=== PATIENT | male | born 1970 | race Caucasian/White ===

== ENCOUNTER → 2016-08-08 | Outpatient (CLI) | payer BC ==
[2016-08-08 09:36] LABS: ANION GAP 13 (5-19); BLOOD UREA NITROGEN 24 mg/dL (7-20); CALCIUM 10.4 mg/dL (8.4-10.2); CARBON DIOXIDE 27 mmol/L (22-30); CHLORIDE 102 mmol/L (98-107); CREATININE RESULT 1.26 mg/dL (0.52-1.25); GLUCOSE 87 mg/dL (75-110); POTASSIUM 4.1 mmol/L (3.6-5.0); SODIUM 142.4 mmol/L (137-145)
[2016-08-09 11:10] LABS: HEMATOCRIT 51.6 % (37.9-51.0); HEMOGLOBIN 17.1 g/dL (13.5-17.0); HGB HCT DIFFERENCE -0.3; MEAN CORPUSCULAR HEMOGLOBIN 28.9 pg (27.0-33.4); MEAN CORPUSCULAR HGB CONC 33.2 g/dL (32.0-36.0); MEAN CORPUSCULAR VOLUME 87 fl (80-97); RED BLOOD COUNT 5.93 10^6/uL (4.35-5.55); RED CELL DISTRIBUTION WIDTH 14.2 % (11.5-14.0); WHITE BLOOD COUNT 6.8 10^3/uL (4.0-10.5)
== END ==
LOC: OD 07:34
PROVIDERS: ATTEND Transplant Surgery
DX: Z94.0 Kidney transplant status (principal)
CPT/HCPCS: 36415; 80048; 85025; 85027

== ENCOUNTER → 2016-08-16 | Outpatient (CLI) | payer BC ==
[2016-08-16 09:17] LABS: ABSOLUTE EOSINOPHILS # (AUTO) 0.2 10^3/uL (0.0-0.6); ABSOLUTE LYMPHOCYTES (AUTO) 1.2 10^3/uL (0.5-4.7); ABSOLUTE MONOCYTES (AUTO) 0.6 10^3/uL (0.1-1.4); ABSOLUTE NEUT (AUTO) 4.4 10^3/uL (1.7-8.2); BASOPHILS % (AUTO) 0.6 % (0-2); EOSINOPHILS % (AUTO) 2.7 % (0-6); HEMOGLOBIN 17.4 g/dL (13.5-17.0); HGB HCT DIFFERENCE 0.2; MEAN CORPUSCULAR HEMOGLOBIN 28.9 pg (27.0-33.4); MEAN CORPUSCULAR HGB CONC 33.4 g/dL (32.0-36.0); MEAN CORPUSCULAR VOLUME 86 fl (80-97); MONOCYTES % (AUTO) 9.4 % (3-13); RED BLOOD COUNT 6.03 10^6/uL (4.35-5.55); RED CELL DISTRIBUTION WIDTH 14.4 % (11.5-14.0); SEGMENTED NEUTROPHILS % (AUTO) 68.3 % (42-78); WHITE BLOOD COUNT 6.4 10^3/uL (4.0-10.5)
[2016-08-16 09:45] LABS: ANION GAP 13 (5-19); BLOOD UREA NITROGEN 20 mg/dL (7-20); CALCIUM 9.7 mg/dL (8.4-10.2); CARBON DIOXIDE 28 mmol/L (22-30); CHLORIDE 99 mmol/L (98-107); CREATININE RESULT 1.19 mg/dL (0.52-1.25); GLUCOSE 106 mg/dL (75-110); POTASSIUM 3.8 mmol/L (3.6-5.0); SODIUM 139.9 mmol/L (137-145)
== END ==
LOC: OD 08:34
PROVIDERS: ATTEND Transplant Surgery
DX: Z94.0 Kidney transplant status (principal)
CPT/HCPCS: 36415; 80048; 85025

== ENCOUNTER → 2016-09-18 | Outpatient (CLI) | payer BC ==
[2016-09-18 08:38] LABS: ABSOLUTE EOSINOPHILS # (AUTO) 0.2 10^3/uL (0.0-0.6); ABSOLUTE LYMPHOCYTES (AUTO) 1.3 10^3/uL (0.5-4.7); ABSOLUTE MONOCYTES (AUTO) 0.7 10^3/uL (0.1-1.4); ABSOLUTE NEUT (AUTO) 4.6 10^3/uL (1.7-8.2); BASOPHILS % (AUTO) 0.7 % (0-2); EOSINOPHILS % (AUTO) 3.3 % (0-6); HEMATOCRIT 50.3 % (37.9-51.0); HEMOGLOBIN 17.1 g/dL (13.5-17.0); LYMPHOCYTES % (AUTO) 18.3 % (13-45); MEAN CORPUSCULAR HEMOGLOBIN 29.5 pg (27.0-33.4); MEAN CORPUSCULAR HGB CONC 34.1 g/dL (32.0-36.0); MEAN CORPUSCULAR VOLUME 86 fl (80-97); MONOCYTES % (AUTO) 9.8 % (3-13); RED BLOOD COUNT 5.82 10^6/uL (4.35-5.55); RED CELL DISTRIBUTION WIDTH 14.4 % (11.5-14.0); SEGMENTED NEUTROPHILS % (AUTO) 67.9 % (42-78); WHITE BLOOD COUNT 6.8 10^3/uL (4.0-10.5)
[2016-09-18 08:39] LABS: APPEARANCE,URINE CLEAR; BILIRUBIN,URINE NEGATIVE (NEGATIVE); GLUCOSE, URINE NEGATIVE (NEGATIVE); KETONES,URINE NEGATIVE (NEGATIVE); LEUKOCYTE ESTERASE,URINE NEGATIVE (NEGATIVE); NITRITE,URINE NEGATIVE (NEGATIVE); PROTEIN,URINE NEGATIVE (NEGATIVE); URINE SPECIFIC GRAVITY 1.015; UROBILINOGEN,URINE NEGATIVE mg/dL (<2.0)
[2016-09-18 08:57] LABS: ANION GAP 13 (5-19); BLOOD UREA NITROGEN 24 mg/dL (7-20); CALCIUM 10.1 mg/dL (8.4-10.2); CARBON DIOXIDE 29 mmol/L (22-30); CHLORIDE 101 mmol/L (98-107); CREATININE RESULT 1.02 mg/dL (0.52-1.25); GLUCOSE 114 mg/dL (75-110); MAGNESIUM 1.7 mg/dL (1.6-2.3); PHOSPHORUS 3.6 mg/dL (2.5-4.5); POTASSIUM 4.2 mmol/L (3.6-5.0); SODIUM 143.1 mmol/L (137-145)
== END ==
LOC: OD 07:20
PROVIDERS: ATTEND Transplant Surgery
DX: Z94.0 Kidney transplant status (principal)
CPT/HCPCS: 36415; 80048; 80197; 81001; 83735; 84100; 85025

== ENCOUNTER → 2016-10-26 | Outpatient (CLI) | payer BC ==
[2016-10-26 08:12] LABS: ABSOLUTE EOSINOPHILS # (AUTO) 0.3 10^3/uL (0.0-0.6); ABSOLUTE LYMPHOCYTES (AUTO) 1.4 10^3/uL (0.5-4.7); ABSOLUTE MONOCYTES (AUTO) 0.6 10^3/uL (0.1-1.4); ABSOLUTE NEUT (AUTO) 4.4 10^3/uL (1.7-8.2); BASOPHILS % (AUTO) 0.7 % (0-2); EOSINOPHILS % (AUTO) 3.9 % (0-6); HEMATOCRIT 48.6 % (37.9-51.0); HEMOGLOBIN 16.3 g/dL (13.5-17.0); HGB HCT DIFFERENCE 0.3; MEAN CORPUSCULAR HEMOGLOBIN 29.4 pg (27.0-33.4); MEAN CORPUSCULAR HGB CONC 33.5 g/dL (32.0-36.0); MEAN CORPUSCULAR VOLUME 88 fl (80-97); MONOCYTES % (AUTO) 8.8 % (3-13); RED BLOOD COUNT 5.53 10^6/uL (4.35-5.55); RED CELL DISTRIBUTION WIDTH 14.5 % (11.5-14.0); SEGMENTED NEUTROPHILS % (AUTO) 65.6 % (42-78); WHITE BLOOD COUNT 6.8 10^3/uL (4.0-10.5)
[2016-10-26 08:29] LABS: APPEARANCE,URINE CLEAR; BILIRUBIN,URINE NEGATIVE (NEGATIVE); GLUCOSE, URINE 150 mg/dL (NEGATIVE); KETONES,URINE NEGATIVE (NEGATIVE); LEUKOCYTE ESTERASE,URINE NEGATIVE (NEGATIVE); NITRITE,URINE NEGATIVE (NEGATIVE); PROTEIN,URINE NEGATIVE (NEGATIVE); UROBILINOGEN,URINE NEGATIVE mg/dL (<2.0)
[2016-10-26 08:37] LABS: ANION GAP 15 (5-19); BLOOD UREA NITROGEN 21 mg/dL (7-20); CARBON DIOXIDE 25 mmol/L (22-30); CHLORIDE 101 mmol/L (98-107); CREATININE RESULT 1.15 mg/dL (0.52-1.25); GLUCOSE 141 mg/dL (75-110); MAGNESIUM 1.4 mg/dL (1.6-2.3); PHOSPHORUS 2.8 mg/dL (2.5-4.5); POTASSIUM 3.8 mmol/L (3.6-5.0); SODIUM 140.9 mmol/L (137-145)
== END ==
LOC: OD 07:05
PROVIDERS: ATTEND Surgery Trauma Surgery
DX: Z94.0 Kidney transplant status (principal)
CPT/HCPCS: 36415; 80048; 80197; 81001; 83735; 84100; 85025

== ENCOUNTER → 2016-12-22 | Outpatient (CLI) | payer BC ==
[2016-12-22 09:19] LABS: ABSOLUTE BASOPHILS # (AUTO) 0.1 10^3/uL (0.0-0.2); ABSOLUTE EOSINOPHILS # (AUTO) 0.2 10^3/uL (0.0-0.6); ABSOLUTE LYMPHOCYTES (AUTO) 1.7 10^3/uL (0.5-4.7); ABSOLUTE MONOCYTES (AUTO) 0.8 10^3/uL (0.1-1.4); BASOPHILS % (AUTO) 0.7 % (0-2); EOSINOPHILS % (AUTO) 2.8 % (0-6); HEMATOCRIT 43.3 % (37.9-51.0); HEMOGLOBIN 14.7 g/dL (13.5-17.0); HGB HCT DIFFERENCE 0.8; MEAN CORPUSCULAR HEMOGLOBIN 29.7 pg (27.0-33.4); MEAN CORPUSCULAR HGB CONC 33.9 g/dL (32.0-36.0); MEAN CORPUSCULAR VOLUME 88 fl (80-97); MONOCYTES % (AUTO) 10.4 % (3-13); RED BLOOD COUNT 4.94 10^6/uL (4.35-5.55); RED CELL DISTRIBUTION WIDTH 14.1 % (11.5-14.0); SEGMENTED NEUTROPHILS % (AUTO) 64.1 % (42-78); WHITE BLOOD COUNT 7.8 10^3/uL (4.0-10.5)
[2016-12-22 09:29] LABS: APPEARANCE,URINE SLIGHTLY-CLOUDY; BILIRUBIN,URINE NEGATIVE (NEGATIVE); GLUCOSE, URINE >=500 mg/dL (NEGATIVE); KETONES,URINE NEGATIVE (NEGATIVE); LEUKOCYTE ESTERASE,URINE NEGATIVE (NEGATIVE); NITRITE,URINE NEGATIVE (NEGATIVE); PROTEIN,URINE NEGATIVE (NEGATIVE); URINE SPECIFIC GRAVITY 1.016; UROBILINOGEN,URINE NEGATIVE mg/dL (<2.0)
[2016-12-22 09:30] LABS: ANION GAP 12 (5-19); BLOOD UREA NITROGEN 17 mg/dL (7-20); CALCIUM 9.2 mg/dL (8.4-10.2); CARBON DIOXIDE 28 mmol/L (22-30); CHLORIDE 98 mmol/L (98-107); CREATININE RESULT 1.17 mg/dL (0.52-1.25); GLUCOSE 140 mg/dL (75-110); MAGNESIUM 1.5 mg/dL (1.6-2.3); PHOSPHORUS 3.4 mg/dL (2.5-4.5); POTASSIUM 3.6 mmol/L (3.6-5.0); SODIUM 137.5 mmol/L (137-145)
== END ==
LOC: OD 07:21
PROVIDERS: ATTEND Surgery Trauma Surgery
DX: Z94.0 Kidney transplant status (principal)
CPT/HCPCS: 36415; 80048; 80197; 81001; 83735; 84100; 85025

== ENCOUNTER → 2017-02-05 | Outpatient (CLI) | payer BC ==
[2017-02-05 08:13] LABS: ABSOLUTE EOSINOPHILS # (AUTO) 0.2 10^3/uL (0.0-0.6); ABSOLUTE LYMPHOCYTES (AUTO) 1.7 10^3/uL (0.5-4.7); ABSOLUTE MONOCYTES (AUTO) 0.7 10^3/uL (0.1-1.4); ABSOLUTE NEUT (AUTO) 4.7 10^3/uL (1.7-8.2); BASOPHILS % (AUTO) 0.7 % (0-2); EOSINOPHILS % (AUTO) 2.7 % (0-6); LYMPHOCYTES % (AUTO) 23.2 % (13-45); MEAN CORPUSCULAR HEMOGLOBIN 30.7 pg (27.0-33.4); MEAN CORPUSCULAR HGB CONC 34.9 g/dL (32.0-36.0); MEAN CORPUSCULAR VOLUME 88 fl (80-97); MONOCYTES % (AUTO) 9.8 % (3-13); RED BLOOD COUNT 4.89 10^6/uL (4.35-5.55); RED CELL DISTRIBUTION WIDTH 13.6 % (11.5-14.0); SEGMENTED NEUTROPHILS % (AUTO) 63.6 % (42-78); WHITE BLOOD COUNT 7.3 10^3/uL (4.0-10.5)
[2017-02-05 08:31] LABS: APPEARANCE,URINE CLEAR; BILIRUBIN,URINE NEGATIVE (NEGATIVE); GLUCOSE, URINE 50 mg/dL (NEGATIVE); KETONES,URINE NEGATIVE (NEGATIVE); LEUKOCYTE ESTERASE,URINE NEGATIVE (NEGATIVE); NITRITE,URINE NEGATIVE (NEGATIVE); PROTEIN,URINE 30 mg/dL (NEGATIVE); URINE SPECIFIC GRAVITY 1.024; UROBILINOGEN,URINE NEGATIVE mg/dL (<2.0)
[2017-02-05 08:41] LABS: ANION GAP 11 (5-19); BLOOD UREA NITROGEN 21 mg/dL (7-20); CALCIUM 9.8 mg/dL (8.4-10.2); CARBON DIOXIDE 29 mmol/L (22-30); CHLORIDE 98 mmol/L (98-107); CREATININE RESULT 1.16 mg/dL (0.52-1.25); GLUCOSE 135 mg/dL (75-110); MAGNESIUM 1.3 mg/dL (1.6-2.3); PHOSPHORUS 3.8 mg/dL (2.5-4.5); POTASSIUM 3.8 mmol/L (3.6-5.0); SODIUM 138.3 mmol/L (137-145)
== END ==
LOC: OD 07:04
PROVIDERS: ATTEND Surgery Trauma Surgery
DX: Z94.0 Kidney transplant status (principal)
CPT/HCPCS: 36415; 80048; 80197; 81001; 83735; 84100; 85025

== ENCOUNTER → 2017-02-28 | Outpatient (CLI) | payer BC | LOC: OD 07:04 | PROVIDERS: ATTEND Internal Medicine | DX: Z94.0 Kidney transplant status (principal); Z51.81 Encounter for therapeutic drug level monitoring; Z79.899 Other long term (current) drug therapy | CPT/HCPCS: 36415; 80197 ==

== ENCOUNTER → 2017-03-26 | Outpatient (CLI) | payer BC ==
[2017-03-26 08:44] LABS: ABSOLUTE EOSINOPHILS # (AUTO) 0.1 10^3/uL (0.0-0.6); ABSOLUTE LYMPHOCYTES (AUTO) 1.3 10^3/uL (0.5-4.7); ABSOLUTE MONOCYTES (AUTO) 0.6 10^3/uL (0.1-1.4); ABSOLUTE NEUT (AUTO) 4.7 10^3/uL (1.7-8.2); BASOPHILS % (AUTO) 0.7 % (0-2); EOSINOPHILS % (AUTO) 2.1 % (0-6); HEMATOCRIT 45.9 % (37.9-51.0); HEMOGLOBIN 15.6 g/dL (13.5-17.0); HGB HCT DIFFERENCE 0.9; LYMPHOCYTES % (AUTO) 18.9 % (13-45); MEAN CORPUSCULAR HEMOGLOBIN 29.9 pg (27.0-33.4); MEAN CORPUSCULAR HGB CONC 34.1 g/dL (32.0-36.0); MEAN CORPUSCULAR VOLUME 88 fl (80-97); MONOCYTES % (AUTO) 8.4 % (3-13); RED BLOOD COUNT 5.23 10^6/uL (4.35-5.55); RED CELL DISTRIBUTION WIDTH 13.5 % (11.5-14.0); SEGMENTED NEUTROPHILS % (AUTO) 69.9 % (42-78); WHITE BLOOD COUNT 6.7 10^3/uL (4.0-10.5)
[2017-03-26 09:00] LABS: ANION GAP 13 (5-19); BLOOD UREA NITROGEN 15 mg/dL (7-20); CALCIUM 9.9 mg/dL (8.4-10.2); CARBON DIOXIDE 25 mmol/L (22-30); CHLORIDE 103 mmol/L (98-107); CREATININE RESULT 0.95 mg/dL (0.52-1.25); GLUCOSE 129 mg/dL (75-110); MAGNESIUM 1.5 mg/dL (1.6-2.3); PHOSPHORUS 3.1 mg/dL (2.5-4.5); POTASSIUM 3.9 mmol/L (3.6-5.0); SODIUM 141.3 mmol/L (137-145)
[2017-03-26 09:01] LABS: APPEARANCE,URINE CLEAR; BILIRUBIN,URINE NEGATIVE (NEGATIVE); GLUCOSE, URINE 50 mg/dL (NEGATIVE); KETONES,URINE NEGATIVE (NEGATIVE); LEUKOCYTE ESTERASE,URINE TRACE (NEGATIVE); NITRITE,URINE NEGATIVE (NEGATIVE); PROTEIN,URINE 30 mg/dL (NEGATIVE); URINE SPECIFIC GRAVITY 1.023; UROBILINOGEN,URINE NEGATIVE mg/dL (<2.0)
== END ==
LOC: OD 07:56
PROVIDERS: ATTEND Surgery Trauma Surgery
DX: Z94.0 Kidney transplant status (principal)
CPT/HCPCS: 36415; 80048; 80197; 81001; 83735; 84100; 85025

== ENCOUNTER 2017-05-18 23:28 | Emergency (ER) | payer BC ==
[2017-05-18 23:51] VITALS: BP 172/121
[2017-05-19 00:10] LABS: APPEARANCE,URINE CLOUDY; BILIRUBIN,URINE NEGATIVE (NEGATIVE); GLUCOSE, URINE >=500 mg/dL (NEGATIVE); KETONES,URINE NEGATIVE (NEGATIVE); LEUKOCYTE ESTERASE,URINE LARGE (NEGATIVE); NITRITE,URINE POSITIVE (NEGATIVE); PROTEIN,URINE 100 mg/dL (NEGATIVE); URINE SPECIFIC GRAVITY 1.014; UROBILINOGEN,URINE NEGATIVE mg/dL (<2.0)
[2017-05-19 00:29] LABS: BACTERIA,URINE 4+ /HPF; RBC,URINE TOO NUMEROUS TO CNT /HPF; WBC,URINE TOO NUMEROUS TO CNT /HPF
[2017-05-19 01:44] LABS: ABSOLUTE BASOPHILS # (AUTO) 0.1 10^3/uL (0.0-0.2); ABSOLUTE EOSINOPHILS # (AUTO) 0.1 10^3/uL (0.0-0.6); ABSOLUTE LYMPHOCYTES (AUTO) 1.2 10^3/uL (0.5-4.7); ABSOLUTE MONOCYTES (AUTO) 1.1 10^3/uL (0.1-1.4); ABSOLUTE NEUT (AUTO) 10.1 10^3/uL (1.7-8.2); BASOPHILS % (AUTO) 0.6 % (0-2); EOSINOPHILS % (AUTO) 0.8 % (0-6); HEMOGLOBIN 15.4 g/dL (13.5-17.0); HGB HCT DIFFERENCE 1.2; LYMPHOCYTES % (AUTO) 9.3 % (13-45); MEAN CORPUSCULAR HEMOGLOBIN 29.9 pg (27.0-33.4); MEAN CORPUSCULAR HGB CONC 34.2 g/dL (32.0-36.0); MEAN CORPUSCULAR VOLUME 87 fl (80-97); MONOCYTES % (AUTO) 8.6 % (3-13); RED BLOOD COUNT 5.16 10^6/uL (4.35-5.55); RED CELL DISTRIBUTION WIDTH 13.3 % (11.5-14.0); SEGMENTED NEUTROPHILS % (AUTO) 80.7 % (42-78); WHITE BLOOD COUNT 12.5 10^3/uL (4.0-10.5)
[2017-05-19 02:00] LABS: ALANINE AMINOTRANSFERASE 43 U/L (21-72); ALBUMIN 4.2 g/dL (3.5-5.0); ALKALINE PHOSPHATASE 61 U/L (38-126); ANION GAP 14 (5-19); ASPARTATE AMINO TRANSFERASE 29 U/L (17-59); BILIRUBIN,DIRECT 0.4 mg/dL (0.0-0.4); BLOOD UREA NITROGEN 21 mg/dL (7-20); CALCIUM 9.7 mg/dL (8.4-10.2); CARBON DIOXIDE 27 mmol/L (22-30); CHLORIDE 102 mmol/L (98-107); CREATININE RESULT 1.22 mg/dL (0.52-1.25); POTASSIUM 3.7 mmol/L (3.6-5.0); SODIUM 143.4 mmol/L (137-145); TOTAL PROTEIN 6.3 g/dL (6.3-8.2)
[2017-05-19 02:28] LABS: GLUCOSE 157 mg/dL (75-110)
[2017-05-19] MEDS ORDERED: LEVOFLOXACIN 500 MG TABLET PO ONE (02:38)
--- NOTE | 2017-05-19 02:42 | ER Document Report ---
ED General - General Chief Complaint: Urinary Problem Stated Complaint: URINATING BLOOD Time Seen by Provider: 05/19/17 00:05 Mode of Arrival: Ambulatory Information source: Patient Notes: This is a 46-year-old man with a history of kidney transplant (ECU in 2016) who is followed by [facility]. The patient presents to the emergency room with dysuria, urgency. He denies flank pain. He denies right lower quadrant pain (which is where his graft is). He called the [facility] team in [facility] and they told him to come to the ER. Medicines: Omeprazole 40 mg daily Hydralazine 50 mg daily Myfortic 180 tabs: 4 tabs twice daily Losartan 100 mg daily Prograf 4 mg twice daily Labetalol 300 mg daily Lasix 20 mg twice daily Prednisone 5 mg daily Allergies: Lisinopril TRAVEL OUTSIDE OF THE [place] IN LAST 30 DAYS: No - HPI Onset: Just prior to arrival Onset/Duration: Gradual Quality of pain: No pain Severity: None Pain Level: Denies Associated symptoms: denies: Chest pain, Fever, Shortness of breath Exacerbated by: Denies Relieved by: Denies Similar symptoms previously: No Recently seen / treated by doctor: No - Related Data Allergies/Adverse Reactions: lisinopril Allergy (Verified 12/05/15 16:38) Past Medical History - General Information source: Patient - Social History Smoking Status: Never Smoker Cigarette use (# per day): No Chew tobacco use (# tins/day): No Frequency of alcohol use: None Drug Abuse: None Lives with: Family Family History: Reviewed & Not Pertinent Patient has suicidal ideation: No Patient has homicidal ideation: No - Past Medical History Cardiac Medical History: Reports: Hx Hypertension Denies: Hx Coronary Artery Disease, Hx Heart Attack Pulmonary Medical History: Denies: Hx Asthma, Hx Bronchitis, Hx COPD, Hx Pneumonia Neurological Medical History: Denies: Hx Cerebrovascular Accident, Hx Seizures Musculoskeltal Medical History: Denies Hx Arthritis Past Surgical History: Reports: Other - Kidney transplant - Immunizations Hx Diphtheria, Pertussis, Tetanus Vaccination: Yes Review of Systems - Review of Systems Constitutional: Chills, Fever EENT: No symptoms reported Cardiovascular: No symptoms reported Respiratory: No symptoms reported Gastrointestinal: See HPI Genitourinary: No symptoms reported Male Genitourinary: No symptoms reported Musculoskeletal: No symptoms reported Skin: No symptoms reported Hematologic/Lymphatic: No symptoms reported Neurological/Psychological: No symptoms reported Physical Exam - Vital signs Vitals: Temp Pulse Resp BP Pulse Ox 99.8 F 70 18 172/121 H 95 05/18/17 23:49 05/18/17 23:49 12 23:49 05/18/17 23:49 12 23:49 Notes: Physical exam: HEAD: Atraumatic, normocephalic. EYES: Pupils equal round and reactive to light, extraocular movements intact, sclera anicteric, conjunctiva are normal. ENT: TMs normal, nares patent, oropharynx clear without exudates. Moist mucous membranes. NECK: Normal range of motion, supple without obvious mass or JVD. LUNGS: Breath sounds clear to auscultation bilaterally and equal. No wheezes rales or rhonchi. HEART: Regular rate and rhythm without murmurs, rubs or gallops. ABDOMEN: Soft, normoactive bowel sounds. No tenderness to palpation. No guarding, no rebound. No masses appreciated. He is transplanted kidney is in the right lower quadrant, there is no overlying erythema or tenderness. Penis: No tenderness or lesions or discharge. EXTREMITIES: Normal range of motion, no pitting or edema. No clubbing or cyanosis. NEUROLOGICAL: Cranial nerves II through XII grossly intact. Normal speech, moving all extremities. PSYCH: Normal mood, normal affect. SKIN: Warm, Dry, normal turgor, no rashes or lesions noted. Course - Re-evaluation Re-evalutation: 05/19/17 02:43 I discussed case with the fellow who is covering for [facility] at [facility] and he agreed with plan for antibiotics and discharge. We did discuss the labs. He requested getting a CMV and I will look into that. - Vital Signs Vital signs: Temp Pulse Resp BP Pulse Ox 99.8 F 70 18 172/121 H 95 05/18/17 23:49 05/18/17 23:49 05/18/17 23:49 05/18/17 23:49 05/18/17 23:49 - Laboratory Result Diagrams: 05/19/17 01:30 05/19/17 01:30 Laboratory results interpreted by me: 05/18/17 05/19/17 05/19/17 23:42 01:30 01:30 WBC 12.5 H Seg Neutrophils % 80.7 H Lymphocytes % 9.3 L Absolute Neutrophils 10.1 H BUN 21 H Glucose 157 H Urine Protein 100 H Urine Glucose (UA) >=500 H Urine Blood LARGE H Urine Nitrite POSITIVE H Ur Leukocyte Esterase LARGE H Discharge - Discharge Clinical Impression: UTI Condition: Stable Disposition: HOME, SELF-CARE Additional Instructions: Recommendations: As we discussed, your labs suggested a urine infection. Take the antibiotics as prescribed. Drink plenty of fluids. Follow-up with the forging operator: You will need a repeat urine test to make sure that the antibiotic is covering this infection. A urine culture was sent and will take a few days. The forging operator at [facility] had recommended getting a CMV: We will try and send that , call in a few days to see what the test result is. In the meantime, return to the emergency room for any concerns or getting worse : Back pain, abdominal pain, continued fever, not tolerating fluids or vomiting. Prescriptions: Levofloxacin 500 mg PO DAILY #10 tablet Forms: Return to Work Referrals: WENDI MERCER MD [Primary Care Provider] - Follow up as needed
[2017-05-22 14:53] LABS: CMV DNA PCR QUANT Negative (Negative)
== END 2017-05-19 03:52 | disposition home or self-care (01) ==
LOC: ER 23:28
DX: N39.0 Urinary tract infection, site not specified (principal); R31.9 Hematuria, unspecified; I10 Essential (primary) hypertension; Z94.0 Kidney transplant status
CPT/HCPCS: 36415; 80053; 81001; 85025; 87086; 87088; 87186; 87496; 99283

== ENCOUNTER 2017-06-09 14:01 | Emergency (ER) | payer BC ==
[2017-06-09 14:06] VITALS: BP 155/91
[2017-06-09] MEDS ORDERED: LIDOCAINE 1% INJ-PF (10 MG/ML) 30 ML SDV INJ ONE (14:52)
--- NOTE | 2017-06-09 15:59 | ER Document Report ---
ED Wound - General Chief Complaint: Laceration Stated Complaint: LEFT HAND LACERATION Time Seen by Provider: 06/09/17 14:44 Mode of Arrival: Ambulatory Information source: Patient Notes: Patient is a 46-year-old male who presents to the ER today for laceration to the palmar surface of the left hand that occurred just prior to arrival. Patient states that he was cutting a box open, opening his since Gallo present whenever he accidentally slipped and cut his hand. Patient is up-to- date on his tetanus. He states bleeding is controlled at this time. He denies any numbness or tingling. He has full range of motion of the left hand. TRAVEL OUTSIDE OF THE [place] IN LAST 30 DAYS: No - Related Data Allergies/Adverse Reactions: lisinopril Allergy (Verified 06/09/17 14:02) Past Medical History - General Information source: Patient - Social History Smoking Status: Never Smoker Chew tobacco use (# tins/day): No Frequency of alcohol use: None Drug Abuse: None Family History: Reviewed & Not Pertinent Patient has suicidal ideation: No Patient has homicidal ideation: No - Past Medical History Cardiac Medical History: Reports: Hx Hypertension Denies: Hx Coronary Artery Disease, Hx Heart Attack Pulmonary Medical History: Denies: Hx Asthma, Hx Bronchitis, Hx COPD, Hx Pneumonia Neurological Medical History: Denies: Hx Cerebrovascular Accident, Hx Seizures Renal/ Medical History: Denies: Hx Peritoneal Dialysis Musculoskeltal Medical History: Denies Hx Arthritis Past Surgical History: Reports: Hx Kidney (Renal Surgery) - kidney transplant, Hx Testicular Surgery - as a child, Other - Kidney transplant - Immunizations Hx Diphtheria, Pertussis, Tetanus Vaccination: Yes Review of Systems - Review of Systems Constitutional: No symptoms reported EENT: No symptoms reported Cardiovascular: No symptoms reported Respiratory: No symptoms reported Gastrointestinal: No symptoms reported Genitourinary: No symptoms reported Male Genitourinary: No symptoms reported Musculoskeletal: No symptoms reported Skin: See HPI Hematologic/Lymphatic: No symptoms reported Neurological/Psychological: No symptoms reported Physical Exam - Vital signs Vitals: Temp Pulse Resp BP Pulse Ox 98.5 F 61 16 155/91 H 96 06/09/17 14:05 06/09/17 14:05 06/09/17 14:05 06/09/17 14:05 06/09/17 14:05 - Notes Notes: PHYSICAL EXAMINATION: GENERAL: Well-appearing and in no acute distress. HEAD: Atraumatic, normocephalic. EYES: Pupils equal round and reactive to light, extraocular movements intact, sclera anicteric, conjunctiva are normal. NECK: Normal range of motion, supple without lymphadenopathy LUNGS: CTAB and equal. No wheezes rales or rhonchi. HEART: Regular rate and rhythm without murmurs EXTREMITIES: good casing man strength left hand, good capillary refill, Normal range of motion, no pitting edema. No cyanosis. NEUROLOGICAL: Cranial nerves grossly intact. Normal sensory/motor exams. PSYCH: Normal mood, normal affect. SKIN: Warm, Dry, normal turgor, 4 cm laceration to the palmar surface of the left hand, no bleeding, subcutaneous fat noted, no appreciated ligaments or tendons Course - Re-evaluation Re-evalutation: 06/09/17 16:29 Laceration was sutured and hemostasis was achieved. Patient to return in 7 days for suture removal. Patient placed on Keflex for risk of infection. - Vital Signs Vital signs: Temp Pulse Resp BP Pulse Ox 98.5 F 61 16 155/91 H 96 06/09/17 14:05 06/09/17 14:05 06/09/17 14:05 06/09/17 14:05 06/09/17 14:05 Procedures - Laceration/Wound Repair Left Volar Hand Time completed: 16:00 Wound length (cm): 4 Wound's Depth, Shape: Superficial, Linear Laceration pre-procedure: Sterile PPE donned, Latrell applied Anesthetic type: 1% Lidocaine Volume Anesthetic (mLs): 6 Wound explored: Clean Irrigated w/ Saline (mLs): 30 Wound Repaired With: Sutures Suture Size/Type: 5:0, Nylon Number of Sutures: 9 Post-procedure NV exam normal: Yes Complications: No Discharge - Discharge Clinical Impression: Laceration of left hand Qualifiers: Encounter type: initial encounter Foreign body presence: without foreign body Qualified Code(s): S61.412A - Laceration without foreign body of left hand, initial encounter Condition: Stable Disposition: HOME, SELF-CARE Additional Instructions: Return immediately for any new or worsening symptoms. Follow up with primary care provider, call tomorrow to make followup appointment. Get your sutures removed in 5-7 days! Prescriptions: Cephalexin Monohydrate [Keflex 500 mg Capsule] 500 mg PO BID 5 Days #10 capsule Forms: Return to Work Referrals: WENDI MERCER MD [Primary Care Provider] - Follow up as needed
== END 2017-06-09 16:05 | disposition home or self-care (01) ==
LOC: ER 14:01
DX: S61.412A Laceration without foreign body of left hand, initial encounter (principal); W26.0XXA Contact with knife, initial encounter; Y93.89 Activity, other specified; I10 Essential (primary) hypertension; Z94.0 Kidney transplant status; Z88.8 Allergy status to other drugs, medicaments and biological substances
CPT/HCPCS: 99282; 12002; J3490

== ENCOUNTER 2017-06-16 13:17 | Emergency (ER) | payer BC ==
[2017-06-16 13:24] VITALS: BP 156/79
--- NOTE | 2017-06-16 13:38 | ER Document Report ---
HPI - HPI Patient complains to provider of: Suture removal Onset: Last week Pain Level: 0 Context: Patient is here for suture removal for a laceration to the left palmar surface of his hand. Patient states he cut his hand with a knife. Patient's tetanus immunization is currently up-to-date. Patient denies any numbness or tingling to hand. Patient denies any problems with laceration. Associated Symptoms: Other - Suture removal Exacerbated by: Denies Relieved by: Denies Recently seen / treated by doctor: Yes - ROS ROS below otherwise negative: Yes Systems Reviewed and Negative: Yes All other systems reviewed and negative - DERM Skin Problems: Laceration Past Medical History - General Information source: Patient - Social History Smoking Status: Never Smoker Frequency of alcohol use: None Drug Abuse: None Lives with: Family Family History: Reviewed & Not Pertinent - Past Medical History Cardiac Medical History: Reports: Hx Hypertension Denies: Hx Coronary Artery Disease, Hx Heart Attack Pulmonary Medical History: Denies: Hx Asthma, Hx Bronchitis, Hx COPD, Hx Pneumonia Neurological Medical History: Denies: Hx Cerebrovascular Accident, Hx Seizures Renal/ Medical History: Denies: Hx Peritoneal Dialysis Musculoskeltal Medical History: Denies Hx Arthritis Past Surgical History: Reports: Hx Kidney (Renal Surgery) - kidney transplant, Hx Testicular Surgery - as a child, Other - Kidney transplant - Immunizations Hx Diphtheria, Pertussis, Tetanus Vaccination: Yes Vertical Provider Document - CONSTITUTIONAL Agree With Documented VS: Yes Exam Limitations: No Limitations General Appearance: WD/WN, No Apparent Distress - INFECTION CONTROL TRAVEL OUTSIDE OF THE [place] IN LAST 30 DAYS: No - HEENT HEENT: Atraumatic, Normocephalic - NECK Neck: Normal Inspection - RESPIRATORY Respiratory: No Respiratory Distress O2 Sat by Pulse Oximetry: 97 - CARDIOVASCULAR Pulses: Normal: Radial - MUSCULOSKELETAL/EXTREMETIES Musculoskeletal/Extremeties: MAEW, Tender - Mild tenderness of palmar surface of left hand, No Edema. negative: Eccymosis - NEURO Level of Consciousness: Awake, Alert, Appropriate Motor/Sensory: No Motor Deficit, No Sensory Deficit - DERM Integumentary: Warm, Dry, Laceration - Sutured laceration to palmar surface of left hand, wound edges approximated, no surrounding erythema Course - Vital Signs Vital signs: Temp Pulse Resp BP Pulse Ox 98.4 F 61 20 156/79 H 97 06/16/17 13:24 06/16/17 13:24 06/16/17 13:24 06/16/17 13:24 06/16/17 13:24 Discharge - Discharge Clinical Impression: Visit for suture removal, Hx of essential hypertension Condition: Stable Disposition: HOME, SELF-CARE Instructions: Care of Steri-Strip Closure ([facility]), Suture Removal Additional Instructions: Return immediately for any new or worsening symptoms Followup with the hand specialist for any problems or concerns Forms: Elevated Blood Pressure Referrals: WENDI MERCER MD [Primary Care Provider] - Follow up as needed BA LEVY DO [ACTIVE STAFF] - Follow up as needed
== END 2017-06-16 13:55 | disposition home or self-care (01) ==
LOC: ER 13:17
DX: S61.412D Laceration without foreign body of left hand, subsequent encounter (principal); W26.0XXD Contact with knife, subsequent encounter; I10 Essential (primary) hypertension

== ENCOUNTER 2017-06-16 20:43 | Emergency (ER) | payer BC ==
[2017-06-16] MEDS ORDERED: LIDOCAINE 1% INJ-PF (10 MG/ML) 30 ML SDV INJ ONE (22:27)
[2017-06-16] MEDS ORDERED: CEPHALEXIN 500 MG CAPSULE PO ONE (22:28)
--- NOTE | 2017-06-16 22:29 | ER Document Report ---
ED Hand/Wrist Injury - General Chief Complaint: Wound Recheck Stated Complaint: WOUND RECHECK Time Seen by Provider: 06/16/17 22:15 Mode of Arrival: Ambulatory Information source: Patient Notes: 46-year-old male presents to ED for complaint of his laceration to his left palm dehiscent. His laceration was opened and 4 cm long. It was bleeding but not profusely. He had been seen earlier today to have the sutures removed and Steri-Strips were applied. The Steri-Strips were hanging loose from the skin. He states he became concerned and came back to the emergency room. I consulted Dr. Hall who stated that it needs to be resutured 3 loose sutures with Dermabond in between. He stated that the wound needed to be well cleaned before re-suturing it and then well irrigated. TRAVEL OUTSIDE OF THE [place] IN LAST 30 DAYS: No - HPI Injury to: Palm Onset: Last week Where: Home, Indoors Timing: Still present Severity: None Pain Level: Denies Context: Laceration - Dehiscent left palm of hand laceration - Related Data Allergies/Adverse Reactions: lisinopril Allergy (Verified 06/16/17 13:17) Past Medical History - General Information source: Patient - Social History Smoking Status: Never Smoker Cigarette use (# per day): No Chew tobacco use (# tins/day): No Smoking Education Provided: No Frequency of alcohol use: None Drug Abuse: None Occupation: [employer] Family History: Reviewed & Not Pertinent Patient has suicidal ideation: No Patient has homicidal ideation: No - Past Medical History Cardiac Medical History: Reports: Hx Hypertension Pulmonary Medical History: Reports: None EENT Medical History: Reports: None Neurological Medical History: Reports: None Endocrine Medical History: Reports: None Renal/ Medical History: Reports: Hx End Stage Renal Disease - With a kidney transplant no longer on dialysis Malignancy Medical History: Reports None GI Medical History: Reports: None Musculoskeltal Medical History: Reports None Skin Medical History: Reports None Psychiatric Medical History: Reports: None Traumatic Medical History: Reports: None Infectious Medical History: Reports: None Past Surgical History: Reports: Hx Kidney (Renal Surgery) - kidney transplant, Hx Testicular Surgery - as a child, Hx Vascular Surgery - Fistula left forearm - Immunizations Immunizations up to date: Yes Hx Diphtheria, Pertussis, Tetanus Vaccination: Yes Review of Systems - Review of Systems Constitutional: No symptoms reported EENT: No symptoms reported Cardiovascular: No symptoms reported Respiratory: No symptoms reported Gastrointestinal: No symptoms reported Genitourinary: No symptoms reported Male Genitourinary: No symptoms reported Musculoskeletal: No symptoms reported Skin: Other - Dehiscent left hand laceration Hematologic/Lymphatic: No symptoms reported Neurological/Psychological: No symptoms reported -: Yes All other systems reviewed and negative Physical Exam - Vital signs Vitals: Temp Pulse Resp BP Pulse Ox 98.8 F 64 20 169/98 H 95 06/16/17 20:49 06/16/17 20:49 06/16/17 20:49 06/16/17 20:49 06/16/17 20:49 Interpretation: Normal - General General appearance: Appears well, Alert - HEENT Head: Normocephalic, Atraumatic Eyes: Normal Pupils: PERRL - Respiratory Respiratory status: No respiratory distress Chest status: Nontender Breath sounds: Normal Chest palpation: Normal - Cardiovascular Rhythm: Regular Heart sounds: Normal auscultation Murmur: No - Abdominal Inspection: Normal Distension: No distension Bowel sounds: Normal Tenderness: Nontender Organomegaly: No organomegaly - Back Back: Normal, Nontender - Extremities General upper extremity: Nontender, Normal color, Normal ROM, Normal temperature General lower extremity: Normal inspection, Nontender, Normal color, Normal ROM , Normal temperature, Normal weight bearing. No: Shannan's sign Hand: Tender, Laceration - Dehiscent laceration 4 cm long very open. Was bleeding., No evidence of human bite, No evidence of FB - Neurological Neuro grossly intact: Yes Cognition: Normal Orientation: AAOx4 [place] Coma Scale Eye Opening: Spontaneous [place] Coma Scale Verbal: Oriented [place] Coma Scale Motor: Obeys Commands Vipul Coma Scale Total: 15 Speech: Normal Motor strength normal: LUE, RUE, LLE, RLE Sensory: Normal - Psychological Associated symptoms: Normal affect, Normal mood - Skin Skin Temperature: Warm Skin Moisture: Dry Skin Color: Normal Course - Re-evaluation Re-evalutation: 06/16/17 23:[address] Hall before suturing his hand as he had it sutured on the June 09 and had sutures removed earlier today. The wound dehisced and was bleeding when I first examined him. He had Steri-Strips hanging from the edges of the wound but not attached. Dr. Hall recommended cleaning well irrigating well and then putting 3 sutures into the laceration and Dermabond in between the sutures. He recommended patient follow-up with hand surgeon. He also recommended patient not use that hand unless absolutely necessary to allow it to heal this time. He also recommended a cock-up splint to reduce movement. His hand was well cleaned irrigated with 500 cc of saline and then sutured with Dermabond in between the sutures. He then had a cock-up splint applied over a Telfa and Kerlix dressing. His Keflex prescription was renewed and he was instructed to follow-up with Dr. Levy. - Vital Signs Vital signs: Temp Pulse Resp BP Pulse Ox 98.8 F 64 20 169/98 H 95 06/16/17 20:49 06/16/17 20:49 06/16/17 20:49 06/16/17 20:49 06/16/17 20:49 Procedures - Immobilization Left Hand Time completed: 23:26 Immobilizer type: Cock-up Performed by: PCT Post-Proc Neuro Vasc Exam: Normal Alignment checked and good: Yes - Laceration/Wound Repair Left Hand palm Time completed: 23:23 Wound length (cm): 4 Wound's Depth, Shape: Into muscle, Linear Laceration pre-procedure: Sterile PPE donned, Sterile drapes applied, Shur- Clens applied Anesthetic type: 1% Lidocaine Volume Anesthetic (mLs): 7 Wound explored: Clean, No foreign body removed Irrigated w/ Saline (mLs): 500 Wound Repaired With: Sutures, Dermabond Suture Size/Type: 4:0, Ethilon Number of Sutures: 3 Layer Closure?: No Post-procedure wound care: Sterile dressing applied, Splint applied Post-procedure NV exam normal: Yes Complications: No Discharge - Discharge Clinical Impression: dehiscent of hand laceration Condition: Stable Disposition: HOME, SELF-CARE Additional Instructions: Your hand laceration dehisced or opened up. It was cleaned well resutured and Dermabond. You will need to keep this clean and dry and do not move your hand any more than necessary until it heals. He will need to follow-up with a hand surgeon call him on Sunday and schedule a follow-up appointment. Hand Laceration A laceration on the hand can present special problems. It may be difficult to keep the wound dry. Motion of the fingers can disturb the healing edges. Your work may involve exposure to damaging chemicals or water. Keep the wound clean and dry. If you can't keep the cut dry, undisturbed, and free of chemical exposure, please discuss this with the doctor. If any water or chemical gets onto the dressing, remove it, blot the wound dry, then apply a fresh bandage. Dressings should be changed every day. If you feel the stitches pulling as you move the hand, a splint or other form of protection is needed. If any signs of infection occur (swelling, redness, increasing tenderness, red streaks, tender lumps in the armpit, or fever), see the doctor immediately. SOAP CLEANSING: Gently wash the wound daily using a mild soap (like Ivory, Phisoderm, Neutrogena). Use warm water, rubbing gently until all debris, ooze, and crusting have been washed from the wound. Allow to dry briefly (about 10 minutes) after cleaning. Repeat this cleansing at least three times a day for the first two days and then once or twice a day. TETANUS IMMUNIZATION GIVEN: You have been given an immunization against tetanus. Please record this in your records. In general, a booster is needed only once every 10 years. The tetanus shot protects against tetanus or "lockjaw," which is a complication of certain wound infections (the tetanus shot cannot protect against the actual infection). The immunization site may become warm and red due to local reaction. If this occurs, apply warm compresses and take aspirin or ibuprofen to reduce inflammation and discomfort. Return for evaluation if the reaction becomes severe. PROPHYLACTIC ANTIBIOTIC: The antibiotics which have been prescribed are designed to decrease the risk of infection. Only certain types of wounds benefit from this -- the typical cut, scrape, or burn DOES NOT require antibiotics. Of course, infection can still occur despite the use of prophylactic antibiotics. Your wound will heal with less chance of an infectious complication if you take the medication as directed. The most important dose is the FIRST dose, so don't delay filling the prescription! FOLLOW-UP CARE: Please please call the hand surgeon on Sunday to schedule follow-up appointment. Your sutures should be removed in _10____ days. To facilitate a timely removal of your sutures, [facility] You do not need to call for an appointment, but the best time to come in for suture removal is early in the morning. If you have been referred to another physician for follow-up care, call that physicians office for an appointment as you were instructed. If you experience a significant change in your laceration, or if you are concerned there may be an infection (swelling, redness, drainage, increasing tenderness, red streaks, tender lumps in the armpit or groin above the laceration, or fever) , return to the Emergency Department immediately re-evaluation. Prescriptions: Cephalexin Monohydrate [Keflex 500 mg Capsule] 500 mg PO Q6H 5 Days capsule Forms: Elevated Blood Pressure, Return to Work Referrals: WENDI MERCER MD [Primary Care Provider] - Follow up as needed BA LEVY DO [ACTIVE STAFF] - Follow up as needed
[2017-06-17 00:19] VITALS: BP 158/86
== END 2017-06-16 23:29 | disposition home or self-care (01) ==
LOC: ER 20:43
DX: T81.30XA Disruption of wound, unspecified, initial encounter (principal); Y84.8 Other medical procedures as the cause of abnormal reaction of the patient, or of later complication, without mention of misadventure at the time of the procedure; I10 Essential (primary) hypertension; Z88.8 Allergy status to other drugs, medicaments and biological substances
CPT/HCPCS: 99282; 12002; L3908

== ENCOUNTER → 2017-07-09 | Outpatient (CLI) | payer BC ==
[2017-07-09 07:29] LABS: ABSOLUTE BASOPHILS # (AUTO) 0.1 10^3/uL (0.0-0.2); ABSOLUTE EOSINOPHILS # (AUTO) 0.2 10^3/uL (0.0-0.6); ABSOLUTE LYMPHOCYTES (AUTO) 1.5 10^3/uL (0.5-4.7); ABSOLUTE MONOCYTES (AUTO) 0.6 10^3/uL (0.1-1.4); ABSOLUTE NEUT (AUTO) 5.1 10^3/uL (1.7-8.2); BASOPHILS % (AUTO) 0.9 % (0-2); EOSINOPHILS % (AUTO) 2.5 % (0-6); HEMATOCRIT 45.7 % (37.9-51.0); HEMOGLOBIN 15.4 g/dL (13.5-17.0); MEAN CORPUSCULAR HEMOGLOBIN 29.3 pg (27.0-33.4); MEAN CORPUSCULAR HGB CONC 33.8 g/dL (32.0-36.0); MEAN CORPUSCULAR VOLUME 87 fl (80-97); PLATELET COUNT 209 10^3/uL (150-450); RED BLOOD COUNT 5.26 10^6/uL (4.35-5.55); RED CELL DISTRIBUTION WIDTH 13.3 % (11.5-14.0); SEGMENTED NEUTROPHILS % (AUTO) 68.6 % (42-78); TOTAL CELLS COUNTED % (AUTO) 100 %; WHITE BLOOD COUNT 7.4 10^3/uL (4.0-10.5)
[2017-07-09 07:43] LABS: ANION GAP 10 (5-19); BLOOD UREA NITROGEN 16 mg/dL (7-20); CARBON DIOXIDE 29 mmol/L (22-30); CHLORIDE 101 mmol/L (98-107); GLUCOSE 243 mg/dL (75-110); MAGNESIUM 1.6 mg/dL (1.6-2.3); SODIUM 139.5 mmol/L (137-145)
== END ==
LOC: OD 07:06
PROVIDERS: ATTEND Surgery
DX: N18.9 Chronic kidney disease, unspecified (principal); Z94.0 Kidney transplant status
CPT/HCPCS: 36415; 80048; 80197; 83735; 84100; 85025

== ENCOUNTER → 2017-08-07 | Outpatient (CLI) | payer BC ==
[2017-08-09 07:06] LABS: TACROLIMUS (FK506) 8.5 ng/mL (2.0-20.0)
[2017-08-09 10:38] LABS: MYCOPHENOLIC ACID 2.3 ug/mL (1.0-3.5)
== END ==
LOC: OD 07:08
PROVIDERS: ATTEND Internal Medicine Nephrology
DX: Z94.0 Kidney transplant status (principal)
CPT/HCPCS: 36415; 80197; 82542

== ENCOUNTER → 2017-08-22 | Outpatient (CLI) | payer BC ==
[2017-08-22 08:46] LABS: ANION GAP 11 (5-19); BLOOD UREA NITROGEN 17 mg/dL (7-20); CALCIUM 9.9 mg/dL (8.4-10.2); CARBON DIOXIDE 27 mmol/L (22-30); CHLORIDE 99 mmol/L (98-107); GLUCOSE 246 mg/dL (75-110); POTASSIUM 4.1 mmol/L (3.6-5.0); SODIUM 137.2 mmol/L (137-145)
== END ==
LOC: OD 07:06
PROVIDERS: ATTEND Internal Medicine
DX: Z94.0 Kidney transplant status (principal)
CPT/HCPCS: 36415; 80048; 80197

== ENCOUNTER 2017-08-24 15:25 | Emergency (ER) | payer BC ==
--- NOTE | 2017-08-24 16:19 | ER Document Report ---
ED Medical Screen (RME) - General Chief Complaint: Shoulder Pain Stated Complaint: LEFT SHOULDER, NECK AND ARM PAIN Time Seen by Provider: 08/24/17 16:15 Mode of Arrival: Ambulatory Information source: Patient Notes: Patient presents complaining of left upper back pain that radiates to left upper extremity and the base of his neck. Patient has a history of renal transplant and hypertension. I have greeted and performed a rapid initial assessment of this patient. A comprehensive ED assessment and evaluation of the patient, analysis of test results and completion of the medical decision making process will be conducted by additional ED providers. TRAVEL OUTSIDE OF THE [place] IN LAST 30 DAYS: No - Related Data Allergies/Adverse Reactions: lisinopril Allergy (Verified 08/24/17 15:28) Past Medical History - Social History Chew tobacco use (# tins/day): No Frequency of alcohol use: None Drug Abuse: None - Past Medical History Cardiac Medical History: Reports: Hx Hypertension Denies: Hx Coronary Artery Disease, Hx Heart Attack Pulmonary Medical History: Denies: Hx Asthma, Hx Bronchitis, Hx COPD, Hx Pneumonia Neurological Medical History: Denies: Hx Cerebrovascular Accident, Hx Seizures Renal/ Medical History: Reports: Hx End Stage Renal Disease - With a kidney transplant no longer on dialysis. Denies: Hx Peritoneal Dialysis Musculoskeltal Medical History: Denies Hx Arthritis Past Surgical History: Reports: Hx Kidney (Renal Surgery) - kidney transplant, Hx Testicular Surgery - as a child, Hx Vascular Surgery - Fistula left forearm, Other - Kidney transplant - Immunizations Immunizations up to date: Yes Hx Diphtheria, Pertussis, Tetanus Vaccination: Yes Physical Exam - Vital signs Vitals: Temp Pulse Resp BP Pulse Ox 97.5 F 62 18 156/110 H 96 08/24/17 15:32 08/24/17 15:32 08/24/17 15:32 08/24/17 15:32 08/24/17 15:32 - Back Back: Tender - left upper back tenderness Course - Vital Signs Vital signs: Temp Pulse Resp BP Pulse Ox 97.5 F 62 18 156/110 H 96 08/24/17 15:32 08/24/17 15:32 08/24/17 15:32 08/24/17 15:32 08/24/17 15:32 Doctor's Discharge - Discharge Referrals: WENDI MERCER MD [Primary Care Provider] - Follow up as needed
--- NOTE | 2017-08-24 16:42 | RADIOLOGY REPORT (SQ) ---
EXAM DESCRIPTION: CHEST PA/LAT COMPLETED DATE/TIME: 08/24/2017 4:29 pm REASON FOR STUDY: left upper back pain COMPARISON: None. EXAM PARAMETERS: NUMBER OF VIEWS: two views TECHNIQUE: Digital Frontal and Lateral radiographic views of the chest acquired. RADIATION DOSE: NA LIMITATIONS: none FINDINGS: LUNGS AND PLEURA: No opacities, masses or pneumothorax. No pleural effusion. MEDIASTINUM AND HILAR STRUCTURES: No masses or contour abnormalities. HEART AND VASCULAR STRUCTURES: Heart normal size. No evidence for failure. BONES: No acute findings. Degenerative changes in the spine with exaggerated kyphosis. HARDWARE: None in the chest. OTHER: No other significant finding. IMPRESSION: NO SIGNIFICANT RADIOGRAPHIC FINDING IN THE CHEST. TECHNICAL DOCUMENTATION: JOB ID: [id number] [employer]- All Rights Reserved Reading location - IP/workstation name: [email or web address]
[2017-08-24 17:08] LABS: ABSOLUTE EOSINOPHILS # (AUTO) 0.1 10^3/uL (0.0-0.6); ABSOLUTE LYMPHOCYTES (AUTO) 1.3 10^3/uL (0.5-4.7); ABSOLUTE MONOCYTES (AUTO) 0.6 10^3/uL (0.1-1.4); ABSOLUTE NEUT (AUTO) 6.7 10^3/uL (1.7-8.2); BASOPHILS % (AUTO) 0.6 % (0-2); HEMATOCRIT 48.4 % (37.9-51.0); HEMOGLOBIN 16.2 g/dL (13.5-17.0); LYMPHOCYTES % (AUTO) 14.6 % (13-45); MEAN CORPUSCULAR HEMOGLOBIN 29.4 pg (27.0-33.4); MEAN CORPUSCULAR HGB CONC 33.6 g/dL (32.0-36.0); MEAN CORPUSCULAR VOLUME 88 fl (80-97); MONOCYTES % (AUTO) 6.9 % (3-13); PLATELET COUNT 233 10^3/uL (150-450); RED BLOOD COUNT 5.52 10^6/uL (4.35-5.55); RED CELL DISTRIBUTION WIDTH 13.4 % (11.5-14.0); SEGMENTED NEUTROPHILS % (AUTO) 76.9 % (42-78); TOTAL CELLS COUNTED % (AUTO) 100 %; WHITE BLOOD COUNT 8.7 10^3/uL (4.0-10.5)
--- NOTE | 2017-08-24 18:11 | ER Document Report ---
ED General - General Chief Complaint: Shoulder Pain Stated Complaint: LEFT SHOULDER, NECK AND ARM PAIN Time Seen by Provider: 08/24/17 16:15 Mode of Arrival: Ambulatory Notes: 47-year-old male with hypertension and renal transplant presents with gradual onset left pain in his posterior shoulder medial to his scapula radiating down his shoulder into his arm and transiently accompanied by some tingling. This is resolved in terms of the arm radiation but when he moves his head a certain way it does come back. No problems with strength or gripping. No trauma. No headache photophobia or fever. Denies injury. Pain is not ripping or tearing does not radiate anywhere near his chest and his pressure and renal transplant are well controlled. TRAVEL OUTSIDE OF THE [place] IN LAST 30 DAYS: No - Related Data Allergies/Adverse Reactions: lisinopril Allergy (Verified 08/24/17 15:28) Past Medical History - General Information source: Patient - Social History Smoking Status: Never Smoker Chew tobacco use (# tins/day): No Frequency of alcohol use: None Drug Abuse: None Family History: Reviewed & Not Pertinent Patient has suicidal ideation: No Patient has homicidal ideation: No - Past Medical History Cardiac Medical History: Reports: Hx Hypertension Denies: Hx Coronary Artery Disease, Hx Heart Attack Pulmonary Medical History: Denies: Hx Asthma, Hx Bronchitis, Hx COPD, Hx Pneumonia Neurological Medical History: Denies: Hx Cerebrovascular Accident, Hx Seizures Renal/ Medical History: Reports: Hx End Stage Renal Disease - With a kidney transplant no longer on dialysis. Denies: Hx Peritoneal Dialysis Musculoskeltal Medical History: Denies Hx Arthritis Past Surgical History: Reports: Hx Kidney (Renal Surgery) - kidney transplant, Hx Testicular Surgery - as a child, Hx Vascular Surgery - Fistula left forearm, Other - Kidney transplant - Immunizations Immunizations up to date: Yes Hx Diphtheria, Pertussis, Tetanus Vaccination: Yes Review of Systems - Review of Systems Notes: REVIEW OF SYSTEMS GEN: Denies fever, chills, weight loss ENT: Denies sore throat, nasal discharge, ear pain EYES: Denies blurry vision, eye pain, discharge CV: Denies chest pain, palpitations, edema RESP: Denies cough, shortness of breath, wheezing GI: Denies abdominal pain, nausea, vomiting, diarrhea MSK: Left shoulder and back pain SKIN: Denies rash, skin lesions LYMPH: Denies swollen glands/lymph nodes NEURO: Denies headache, focal weakness or numbness, dizziness PSYCH: Denies depression, suicidal or homicidal ideation PHYSICAL EXAMINATION General: No acute distress, well-nourished Head: Atraumatic, normocephalic ENT: Mouth normal, oropharynx moist, no exudates or tonsillar enlargement Eyes: Conjunctiva normal, pupils equal, lids normal Neck: No JVD, supple, no guarding CVS: Normal rate, regular rhythm, no murmurs Resp: No resp distress, equal and normal breath sounds bilaterally GI: Nondistended, soft, no tenderness to palpation, no rebound or guarding Ext: No deformities, no edema, normal range of motion in upper and lower ext Back: No CVA or midline TTP. Minimal tenderness medial to the left scapula Skin: No rash, warm Lymphatic: No lymphadeopathy noted Neuro: Awake, alert. Face symmetric. GCS 15 normal sensation and strength in left hand. Positive Spurling test.. Physical Exam - Vital signs Vitals: Temp Pulse Resp BP Pulse Ox 97.5 F 62 18 156/110 H 96 08/24/17 15:32 08/24/17 15:32 08/24/17 15:32 08/24/17 15:32 08/24/17 15:32 Course - Re-evaluation Re-evalutation: 08/24/17 18:08 Patient presents with signs and symptoms of cervical radiculopathy. Very much doubt aortic dissection based on the radiation down his arm and reproducibility with neck movement. He is a large man and probably has some degenerative disc disease. He had some labs done and x-rays which are normal. I will not repeat the chemistry test which is hemolyzed. I do not think this is related to his hypertension or his renal transplant as these are well controlled. We discussed the options of therapy including steroids which I will not prescribe given he is already on dual immunosuppression. I will give him gabapentin and Lidoderm he will follow-up with his primary care for possible MRI or physical therapy. I have discussed with the patient there likely diagnosis, aftercare plan, follow-up plans and my usual and customary return precautions. They verbalized understanding of this. - Vital Signs Vital signs: Temp Pulse Resp BP Pulse Ox 97.5 F 62 18 156/110 H 96 08/24/17 15:32 08/24/17 15:32 08/24/17 15:32 08/24/17 15:32 08/24/17 15:32 - Laboratory Result Diagrams: 08/24/17 16:40 08/24/17 16:40 Discharge - Discharge Clinical Impression: Cervical radiculopathy Condition: Good Disposition: HOME, SELF-CARE Instructions: Radiculopathy ([facility]) Prescriptions: Gabapentin 100 mg PO TID #30 capsule Lidocaine [Lidoderm] 1 each TP DAILY #10 adh..patch Referrals: WENDI MERCER MD [Primary Care Provider] - Follow up as needed
[2017-08-24 18:38] VITALS: BP 135/87
== END 2017-08-24 18:38 | disposition home or self-care (01) ==
LOC: ER 15:25
DX: M54.12 Radiculopathy, cervical region (principal); M25.512 Pain in left shoulder; M79.602 Pain in left arm; I10 Essential (primary) hypertension; Z94.0 Kidney transplant status
CPT/HCPCS: 36415; 71046; 85025; 99284

== ENCOUNTER → 2017-08-28 | Outpatient (CLI) | payer BC ==
--- NOTE | 2017-08-28 16:48 | RADIOLOGY REPORT (SQ) ---
EXAM DESCRIPTION: C SP 4 OR 5 VIEWS COMPLETED DATE/TIME: 08/28/2017 4:38 pm REASON FOR STUDY: CERVICAL DISC DISORDER W RADICULOPATHY, UNSP CERVICAL REGION M50.10 CERVICAL DISC DISORDER W RADICULOPATHY, UNSP CERVICAL COMPARISON: None. NUMBER OF VIEWS: Five views. TECHNIQUE: AP, lateral, obliques and odontoid radiographic images acquired of the cervical spine. LIMITATIONS: None. FINDINGS: MINERALIZATION: Normal. ALIGNMENT: Anatomic. VERTEBRAE: Vertebral bodies of normal height. DISCS: Mild disc space narrowing with small osteophytes in the mid to lower cervical spine. FORAMINA: No osteophytes or foraminal narrowing. LATERAL AND POSTERIOR ELEMENTS: Facets, lateral masses and spinous processes without significant find ings. HARDWARE: None in the spine. SOFT TISSUES: No masses or calcifications. Lung apices clear. OTHER: No other significant finding. IMPRESSION: MILD DEGENERATIVE DISEASE. NO ACUTE FINDINGS. TECHNICAL DOCUMENTATION: JOB ID: [id number] [employer]- All Rights Reserved Reading location - IP/workstation name: [email or web address]
== END ==
LOC: OD 16:17
PROVIDERS: ATTEND Physician Assistant
DX: M50.10 Cervical disc disorder with radiculopathy, unspecified cervical region (principal)
CPT/HCPCS: 72050

== ENCOUNTER → 2017-09-07 | Outpatient (CLI) | payer BC ==
[2017-09-07 09:54] LABS: ABSOLUTE BASOPHILS # (AUTO) 0.1 10^3/uL (0.0-0.2); ABSOLUTE EOSINOPHILS # (AUTO) 0.2 10^3/uL (0.0-0.6); ABSOLUTE LYMPHOCYTES (AUTO) 1.4 10^3/uL (0.5-4.7); ABSOLUTE MONOCYTES (AUTO) 0.6 10^3/uL (0.1-1.4); ABSOLUTE NEUT (AUTO) 3.9 10^3/uL (1.7-8.2); EOSINOPHILS % (AUTO) 2.6 % (0-6); HEMATOCRIT 48.4 % (37.9-51.0); HEMOGLOBIN 16.2 g/dL (13.5-17.0); LYMPHOCYTES % (AUTO) 23.2 % (13-45); MEAN CORPUSCULAR HEMOGLOBIN 29.4 pg (27.0-33.4); MEAN CORPUSCULAR HGB CONC 33.4 g/dL (32.0-36.0); MEAN CORPUSCULAR VOLUME 88 fl (80-97); MONOCYTES % (AUTO) 9.9 % (3-13); PLATELET COUNT 228 10^3/uL (150-450); RED BLOOD COUNT 5.49 10^6/uL (4.35-5.55); RED CELL DISTRIBUTION WIDTH 13.8 % (11.5-14.0); SEGMENTED NEUTROPHILS % (AUTO) 63.3 % (42-78); TOTAL CELLS COUNTED % (AUTO) 100 %; WHITE BLOOD COUNT 6.2 10^3/uL (4.0-10.5)
[2017-09-07 09:59] LABS: APPEARANCE,URINE CLEAR; BILIRUBIN,URINE NEGATIVE (NEGATIVE); COLOR,URINE YELLOW; GLUCOSE, URINE 50 mg/dL (NEGATIVE); KETONES,URINE NEGATIVE (NEGATIVE); LEUKOCYTE ESTERASE,URINE NEGATIVE (NEGATIVE); NITRITE,URINE NEGATIVE (NEGATIVE); PROTEIN,URINE 30 mg/dL (NEGATIVE); URINE SPECIFIC GRAVITY 1.028; UROBILINOGEN,URINE NEGATIVE mg/dL (<2.0)
[2017-09-07 10:11] LABS: ANION GAP 9 (5-19); BLOOD UREA NITROGEN 16 mg/dL (7-20); CALCIUM 10.1 mg/dL (8.4-10.2); CARBON DIOXIDE 30 mmol/L (22-30); CHLORIDE 100 mmol/L (98-107); GLUCOSE 112 mg/dL (75-110); PHOSPHORUS 3.3 mg/dL (2.5-4.5); POTASSIUM 3.9 mmol/L (3.6-5.0); SODIUM 138.9 mmol/L (137-145)
== END ==
LOC: OD 09:06
PROVIDERS: ATTEND Surgery
DX: N18.9 Chronic kidney disease, unspecified (principal); Z94.0 Kidney transplant status
CPT/HCPCS: 36415; 80048; 80197; 81001; 83735; 84100; 85025

== ENCOUNTER → 2017-10-26 | Outpatient (CLI) | payer BC ==
[2017-10-26 09:07] LABS: APPEARANCE,URINE SLIGHTLY-CLOUDY; BILIRUBIN,URINE NEGATIVE (NEGATIVE); COLOR,URINE YELLOW; GLUCOSE, URINE 50 mg/dL (NEGATIVE); KETONES,URINE NEGATIVE (NEGATIVE); LEUKOCYTE ESTERASE,URINE SMALL (NEGATIVE); NITRITE,URINE NEGATIVE (NEGATIVE); PROTEIN,URINE 30 mg/dL (NEGATIVE); URINE SPECIFIC GRAVITY 1.024; UROBILINOGEN,URINE NEGATIVE mg/dL (<2.0)
[2017-10-26 09:08] LABS: ABSOLUTE BASOPHILS # (AUTO) 0.1 10^3/uL (0.0-0.2); ABSOLUTE EOSINOPHILS # (AUTO) 0.3 10^3/uL (0.0-0.6); ABSOLUTE LYMPHOCYTES (AUTO) 1.5 10^3/uL (0.5-4.7); ABSOLUTE MONOCYTES (AUTO) 0.7 10^3/uL (0.1-1.4); ABSOLUTE NEUT (AUTO) 3.9 10^3/uL (1.7-8.2); EOSINOPHILS % (AUTO) 4.1 % (0-6); HEMOGLOBIN 16.1 g/dL (13.5-17.0); LYMPHOCYTES % (AUTO) 23.6 % (13-45); MEAN CORPUSCULAR HEMOGLOBIN 29.4 pg (27.0-33.4); MEAN CORPUSCULAR HGB CONC 33.4 g/dL (32.0-36.0); MEAN CORPUSCULAR VOLUME 88 fl (80-97); MONOCYTES % (AUTO) 11.2 % (3-13); PLATELET COUNT 210 10^3/uL (150-450); RED BLOOD COUNT 5.45 10^6/uL (4.35-5.55); SEGMENTED NEUTROPHILS % (AUTO) 60.1 % (42-78); TOTAL CELLS COUNTED % (AUTO) 100 %; WHITE BLOOD COUNT 6.5 10^3/uL (4.0-10.5)
[2017-10-29 09:10] LABS: ANION GAP 13 (5-19); BLOOD UREA NITROGEN 19 mg/dL (7-20); CALCIUM 9.5 mg/dL (8.4-10.2); CARBON DIOXIDE 28 mmol/L (22-30); CHLORIDE 103 mmol/L (98-107); GLUCOSE 106 mg/dL (75-110); PHOSPHORUS 3.7 mg/dL (2.5-4.5); POTASSIUM 3.9 mmol/L (3.6-5.0); SODIUM 143.8 mmol/L (137-145)
== END ==
LOC: OD 07:44
PROVIDERS: ATTEND Surgery
DX: N18.9 Chronic kidney disease, unspecified (principal); Z94.0 Kidney transplant status
CPT/HCPCS: 36415; 80048; 80197; 81001; 83735; 84100; 85025

== ENCOUNTER → 2018-01-16 | Outpatient (CLI) | payer BC ==
[2018-01-16 08:27] LABS: AMORPHOUS SEDIMENT,URINE TRACE /HPF; APPEARANCE,URINE CLOUDY; BILIRUBIN,URINE NEGATIVE (NEGATIVE); COLOR,URINE YELLOW; GLUCOSE, URINE 150 mg/dL (NEGATIVE); KETONES,URINE NEGATIVE (NEGATIVE); LEUKOCYTE ESTERASE,URINE MODERATE (NEGATIVE); NITRITE,URINE NEGATIVE (NEGATIVE); PROTEIN,URINE NEGATIVE (NEGATIVE); URINE SPECIFIC GRAVITY 1.019; UROBILINOGEN,URINE NEGATIVE mg/dL (<2.0)
[2018-01-16 08:36] LABS: ANION GAP 13 (5-19); BLOOD UREA NITROGEN 17 mg/dL (7-20); CALCIUM 9.4 mg/dL (8.4-10.2); CARBON DIOXIDE 29 mmol/L (22-30); CHLORIDE 101 mmol/L (98-107); GLUCOSE 130 mg/dL (75-110); PHOSPHORUS 3.8 mg/dL (2.5-4.5); POTASSIUM 4.2 mmol/L (3.6-5.0); SODIUM 142.8 mmol/L (137-145)
[2018-01-16 08:38] LABS: ABSOLUTE BASOPHILS # (AUTO) 0.1 10^3/uL (0.0-0.2); ABSOLUTE EOSINOPHILS # (AUTO) 0.2 10^3/uL (0.0-0.6); ABSOLUTE LYMPHOCYTES (AUTO) 1.4 10^3/uL (0.5-4.7); ABSOLUTE MONOCYTES (AUTO) 0.6 10^3/uL (0.1-1.4); ABSOLUTE NEUT (AUTO) 5.1 10^3/uL (1.7-8.2); BASOPHILS % (AUTO) 0.9 % (0-2); EOSINOPHILS % (AUTO) 3.2 % (0-6); HEMOGLOBIN 15.9 g/dL (13.5-17.0); LYMPHOCYTES % (AUTO) 18.5 % (13-45); MEAN CORPUSCULAR HEMOGLOBIN 29.9 pg (27.0-33.4); MEAN CORPUSCULAR HGB CONC 33.9 g/dL (32.0-36.0); MEAN CORPUSCULAR VOLUME 88 fl (80-97); MONOCYTES % (AUTO) 8.5 % (3-13); PLATELET COUNT 219 10^3/uL (150-450); RED BLOOD COUNT 5.33 10^6/uL (4.35-5.55); SEGMENTED NEUTROPHILS % (AUTO) 68.9 % (42-78); TOTAL CELLS COUNTED % (AUTO) 100 %; WHITE BLOOD COUNT 7.3 10^3/uL (4.0-10.5)
== END ==
LOC: OD 07:12
PROVIDERS: ATTEND Surgery
DX: N18.9 Chronic kidney disease, unspecified (principal); Z94.0 Kidney transplant status
CPT/HCPCS: 36415; 80048; 80197; 81001; 83735; 84100; 85025

== ENCOUNTER → 2018-06-04 | Outpatient (CLI) | payer BC ==
[2018-06-04 10:06] LABS: ABSOLUTE BASOPHILS # (AUTO) 0.1 10^3/uL (0.0-0.2); ABSOLUTE EOSINOPHILS # (AUTO) 0.1 10^3/uL (0.0-0.6); ABSOLUTE LYMPHOCYTES (AUTO) 1.1 10^3/uL (0.5-4.7); ABSOLUTE MONOCYTES (AUTO) 0.5 10^3/uL (0.1-1.4); ABSOLUTE NEUT (AUTO) 4.8 10^3/uL (1.7-8.2); BASOPHILS % (AUTO) 0.9 % (0-2); EOSINOPHILS % (AUTO) 1.9 % (0-6); HEMATOCRIT 47.8 % (37.9-51.0); HEMOGLOBIN 16.4 g/dL (13.5-17.0); LYMPHOCYTES % (AUTO) 16.9 % (13-45); MEAN CORPUSCULAR HEMOGLOBIN 30.3 pg (27.0-33.4); MEAN CORPUSCULAR HGB CONC 34.3 g/dL (32.0-36.0); MEAN CORPUSCULAR VOLUME 88 fl (80-97); MONOCYTES % (AUTO) 8.1 % (3-13); PLATELET COUNT 208 10^3/uL (150-450); RED BLOOD COUNT 5.41 10^6/uL (4.35-5.55); RED CELL DISTRIBUTION WIDTH 13.8 % (11.5-14.0); SEGMENTED NEUTROPHILS % (AUTO) 72.2 % (42-78); TOTAL CELLS COUNTED % (AUTO) 100 %; WHITE BLOOD COUNT 6.7 10^3/uL (4.0-10.5)
[2018-06-04 10:11] LABS: APPEARANCE,URINE CLEAR; BILIRUBIN,URINE NEGATIVE (NEGATIVE); COLOR,URINE YELLOW; GLUCOSE, URINE NEGATIVE (NEGATIVE); KETONES,URINE NEGATIVE (NEGATIVE); LEUKOCYTE ESTERASE,URINE TRACE (NEGATIVE); NITRITE,URINE NEGATIVE (NEGATIVE); PROTEIN,URINE NEGATIVE (NEGATIVE); URINE SPECIFIC GRAVITY 1.016; UROBILINOGEN,URINE NEGATIVE mg/dL (<2.0)
[2018-06-04 10:32] LABS: ANION GAP 10 (5-19); BLOOD UREA NITROGEN 20 mg/dL (7-20); CALCIUM 9.7 mg/dL (8.4-10.2); CARBON DIOXIDE 26 mmol/L (22-30); CHLORIDE 105 mmol/L (98-107); GLUCOSE 130 mg/dL (75-110); PHOSPHORUS 3.4 mg/dL (2.5-4.5); POTASSIUM 3.5 mmol/L (3.6-5.0); SODIUM 140.5 mmol/L (137-145)
== END ==
LOC: OD 09:04
PROVIDERS: ATTEND Surgery
DX: N18.9 Chronic kidney disease, unspecified (principal); Z94.0 Kidney transplant status
CPT/HCPCS: 36415; 80048; 80197; 81001; 83735; 84100; 85025

== ENCOUNTER 2018-08-19 22:31 | Emergency (ER) | payer BC ==
[2018-08-20 01:12] LABS: HEMATOCRIT 46.7 % (37.9-51.0); HEMOGLOBIN 16.3 g/dL (13.5-17.0); MEAN CORPUSCULAR HEMOGLOBIN 30.7 pg (27.0-33.4); MEAN CORPUSCULAR HGB CONC 34.9 g/dL (32.0-36.0); MEAN CORPUSCULAR VOLUME 88 fl (80-97); PLATELET COUNT 178 10^3/uL (150-450); RED CELL DISTRIBUTION WIDTH 13.4 % (11.5-14.0); WHITE BLOOD COUNT 9.7 10^3/uL (4.0-10.5)
[2018-08-20 01:30] LABS: ANION GAP 9 (5-19); BLOOD UREA NITROGEN 22 mg/dL (7-20); CALCIUM 9.2 mg/dL (8.4-10.2); CARBON DIOXIDE 26 mmol/L (22-30); CHLORIDE 104 mmol/L (98-107); GLUCOSE 151 mg/dL (75-110); POTASSIUM 3.8 mmol/L (3.6-5.0); SODIUM 138.8 mmol/L (137-145)
[2018-08-20 01:30] LABS: APPEARANCE,URINE SLIGHTLY-CLOUDY; BILIRUBIN,URINE NEGATIVE (NEGATIVE); COLOR,URINE AMBER; GLUCOSE, URINE 150 mg/dL (NEGATIVE); KETONES,URINE TRACE mg/dL (NEGATIVE); LEUKOCYTE ESTERASE,URINE NEGATIVE (NEGATIVE); NITRITE,URINE NEGATIVE (NEGATIVE); PROTEIN,URINE 100 mg/dL (NEGATIVE); URINE SPECIFIC GRAVITY 1.031; UROBILINOGEN,URINE NEGATIVE mg/dL (<2.0)
[2018-08-20 01:37] LABS: A TYPE INFLUENZA AG NEGATIVE (NEGATIVE); B INFLUENZA AG NEGATIVE (NEGATIVE)
[2018-08-20 01:40] LABS: ABSOLUTE LYMPHOCYTES# (MANUAL) 0.8 10^3/uL (0.5-4.7); ABSOLUTE MONOCYTES # (MANUAL) 0.8 10^3/uL (0.1-1.4); ABSOLUTE NEUTROPHILS# (MANUAL) 8.1 10^3/uL (1.7-8.2); BAND NEUTROPHILS % (MANUAL) 1 % (3-5); BASOPHILS % (MANUAL) 0 % (0-2); EOSINOPHILS % (MANUAL) 1 % (0-6); LYMPHOCYTES % (MANUAL) 5 % (13-45); MONOCYTES % (MANUAL) 8 % (3-13); SEGMENTED NEUTROPHILS % (MAN) 82 % (42-78); TOTAL CELLS COUNTED 100
[2018-08-20] MEDS ORDERED: NORMAL SALINE 1000 ML 1,000 ML IV ONE (01:40)
[2018-08-20] MEDS ORDERED: ONDANSETRON HCL INJ/PF 4 MG/2 ML SDV IV ONE (01:40)
--- NOTE | 2018-08-20 01:40 | ER Document Report ---
ED General - General Chief Complaint: Flu Symptoms Stated Complaint: FLU LIKE SYMPTOMS Time Seen by Provider: 08/20/18 00:11 Primary Care Provider: WENDI MERCER MD [Primary Care Provider] - Follow up as needed Notes: Patient is a 48-year-old male with a past medical history of polycystic kidney disease status post kidney transplant in 2016, hypertension, diabetes, presents complaining of feeling nauseous with associated vomiting and having general fatigue since waking up this morning. Reports that he has had multiple episodes of nonbilious emesis. He is also had loose stools. Symptoms started gradually, have been relatively unchanged since onset. He has not had recorded fever at home. Nothing is been noted to improve or worsen his symptoms. He has not contacted his primary care physician regarding today's concerns. Denies recent history of similar symptoms. TRAVEL OUTSIDE OF THE [place] IN LAST 30 DAYS: No - Related Data Allergies/Adverse Reactions: lisinopril Allergy (Verified 08/20/18 01:17) morphine Allergy (Verified 08/20/18 01:17) Past Medical History - General Information source: Patient - Social History Smoking Status: Never Smoker Frequency of alcohol use: None Drug Abuse: None Lives with: Spouse/Significant other Family History: Reviewed & Not Pertinent Patient has suicidal ideation: No Patient has homicidal ideation: No - Past Medical History Cardiac Medical History: Reports: Hx Hypertension Denies: Hx Coronary Artery Disease, Hx Heart Attack Pulmonary Medical History: Denies: Hx Asthma, Hx Bronchitis, Hx COPD, Hx Pneumonia Neurological Medical History: Denies: Hx Cerebrovascular Accident, Hx Seizures Endocrine Medical History: Reports: Hx Diabetes Mellitus Type 2 - pre Renal/ Medical History: Reports: Hx End Stage Renal Disease - With a kidney transplant no longer on dialysis. Denies: Hx Peritoneal Dialysis GI Medical History: Reports: Hx Gastroesophageal Reflux Disease Musculoskeletal Medical History: Denies Hx Arthritis Past Surgical History: Reports: Hx Kidney (Renal Surgery) - kidney transplant, Hx Testicular Surgery - as a child, Hx Vascular Surgery - Fistula left forearm, Other - Kidney transplant - Immunizations Immunizations up to date: Yes Hx Diphtheria, Pertussis, Tetanus Vaccination: Yes Review of Systems - Review of Systems Notes: Constitutional: Negative for fever, positive for fatigue HENT: Negative for sore throat. Eyes: Negative for visual changes. Cardiovascular: Negative for chest pain. Respiratory: Negative for shortness of breath. Gastrointestinal: Negative for abdominal pain, positive for vomiting and diarrhea Genitourinary: Negative for dysuria. Musculoskeletal: Negative for back pain. Skin: Negative for rash. Neurological: Negative for headaches, weakness or numbness. 10 point ROS negative except as marked above and in HPI. Physical Exam - Vital signs Vitals: Temp Pulse Resp BP Pulse Ox 99.0 F 71 17 116/69 95 08/19/18 22:42 08/19/18 22:42 08/19/18 22:42 08/19/18 22:42 08/19/18 22:42 Interpretation: Normal Notes: PHYSICAL EXAMINATION: GENERAL: Well-appearing, well-nourished and in no acute distress. HEAD: Atraumatic, normocephalic. EYES: Pupils equal round and reactive to light, extraocular movements intact, sclera anicteric, conjunctiva are normal. ENT: nares patent, oropharynx clear without exudates. Moist mucous membranes. NECK: Normal range of motion, supple without lymphadenopathy LUNGS: Breath sounds clear to auscultation bilaterally and equal. No wheezes rales or rhonchi. HEART: Regular rate and rhythm without murmurs ABDOMEN: Soft, nontender, normoactive bowel sounds. No guarding, no rebound. No masses appreciated. EXTREMITIES: Normal range of motion, no pitting or edema. No cyanosis. NEUROLOGICAL: No focal neurological deficits. Moves all extremities spontaneously and on command. PSYCH: Normal mood, normal affect. SKIN: Warm, Dry, normal turgor, no rashes or lesions noted. Course - Re-evaluation Re-evalutation: 08/20/18 01:39 Presentation of an overall well-appearing 48-year-old male with a history of a renal transplant, immune suppressed secondary to this with concerns of nausea, vomiting and diarrhea. Patient has not had recorded fever. Otherwise extremely well in appearance. Vitals within acceptable limits. Given his history of renal transplant laboratories as well as urinalysis will be undertaken. No respiratory symptoms indicate need for chest x-ray. If these are unremarkable plan for discharge home with recommended follow-up with his transplant physician in the morning. 08/20/18 03:00 Labs completely unremarkable. Patient's is medically improved. No longer vomiting. Abdominal exam remains benign. At this time will discharge with return precautions and follow-up recommendations. Verbal discharge instructions given a the bedside and opportunity for questions given. Medication warnings reviewed. Patient is in agreement with this plan and has verbalized under standing of return precautions and the need for primary care follow-up tomorrow regarding his emergency department visit tonight. - Vital Signs Vital signs: Temp Pulse Resp BP Pulse Ox 99.0 F 71 23 H 135/88 H 95 08/19/18 22:42 08/19/18 22:42 08/20/18 01:39 08/20/18 01:39 08/20/18 01:39 - Laboratory Result Diagrams: 08/20/18 00:51 08/20/18 00:51 Laboratory results interpreted by me: 08/20/18 08/20/18 08/20/18 00:51 00:51 00:57 Seg Neuts % (Manual) 82 H Band Neutrophils % 1 L Lymphocytes % (Manual) 5 L BUN 22 H Glucose 151 H Urine Protein 100 H Urine Glucose (UA) 150 H Urine Ketones TRACE H Discharge - Discharge Clinical Impression: Renal transplant recipient Nausea & vomiting Qualifiers: Vomiting type: unspecified Vomiting Intractability: non-intractable Qualified Code(s): R11.2 - Nausea with vomiting, unspecified Condition: Good Disposition: HOME, SELF-CARE Additional Instructions: Your symptoms are likely due to a viral illness and should resolve in the next several days. However given that you have a history of a kidney transplant please contact your transplant doctor in the morning regarding today's visit. All of your labs are otherwise normal. Continue to stay hydrated with plenty of solution such as Gatorade or Pedialyte. You are being prescribed Zofran to take as needed for nausea and vomiting. Please return if you develop severe abdo aliza pain, pass out, become unable to tolerate any oral fluids for 12 more hours, or any other symptoms that are concerning to you. Referrals: WENDI MERCER MD [Primary Care Provider] - Follow up tomorrow
[2018-08-20 01:41] LABS: OVALOCYTES SLIGHT; PLATELET COMMENT ADEQUATE; POIKILOCYTOSIS SLIGHT
[2018-08-20] MEDS ORDERED: ONDANSETRON ODT 4 MG TAB (6 TAB/ER DISP) PO PRN (03:03)
[2018-08-20 03:11] VITALS: BP 144/89
== END 2018-08-20 03:47 | disposition home or self-care (01) ==
LOC: ER 22:31
DX: R11.2 Nausea with vomiting, unspecified (principal); Z94.0 Kidney transplant status; R19.7 Diarrhea, unspecified; I10 Essential (primary) hypertension; Z88.6 Allergy status to analgesic agent
CPT/HCPCS: 99283; 96361; 96374; 36415; 87040; 87086; 83605; 85025; 80048; 81001; 87804; J2405; J7030

== ENCOUNTER → 2018-08-22 | Outpatient (CLI) | payer BC ==
[2018-08-22 13:14] LABS: APPEARANCE,URINE CLEAR; BILIRUBIN,URINE NEGATIVE (NEGATIVE); COLOR,URINE YELLOW; GLUCOSE, URINE NEGATIVE (NEGATIVE); KETONES,URINE NEGATIVE (NEGATIVE); LEUKOCYTE ESTERASE,URINE NEGATIVE (NEGATIVE); NITRITE,URINE NEGATIVE (NEGATIVE); PROTEIN,URINE NEGATIVE (NEGATIVE); URINE SPECIFIC GRAVITY 1.012; UROBILINOGEN,URINE NEGATIVE mg/dL (<2.0)
[2018-08-22 13:22] LABS: ABSOLUTE EOSINOPHILS # (AUTO) 0.1 10^3/uL (0.0-0.6); ABSOLUTE MONOCYTES (AUTO) 0.5 10^3/uL (0.1-1.4); ABSOLUTE NEUT (AUTO) 5.5 10^3/uL (1.7-8.2); BASOPHILS % (AUTO) 0.6 % (0-2); EOSINOPHILS % (AUTO) 1.1 % (0-6); HEMATOCRIT 45.2 % (37.9-51.0); HEMOGLOBIN 15.6 g/dL (13.5-17.0); LYMPHOCYTES % (AUTO) 13.9 % (13-45); MEAN CORPUSCULAR HEMOGLOBIN 30.3 pg (27.0-33.4); MEAN CORPUSCULAR HGB CONC 34.5 g/dL (32.0-36.0); MEAN CORPUSCULAR VOLUME 88 fl (80-97); MONOCYTES % (AUTO) 6.8 % (3-13); PLATELET COUNT 201 10^3/uL (150-450); RED BLOOD COUNT 5.14 10^6/uL (4.35-5.55); RED CELL DISTRIBUTION WIDTH 13.6 % (11.5-14.0); SEGMENTED NEUTROPHILS % (AUTO) 77.6 % (42-78); TOTAL CELLS COUNTED % (AUTO) 100 %
[2018-08-22 13:38] LABS: ANION GAP 12 (5-19); BLOOD UREA NITROGEN 13 mg/dL (7-20); CALCIUM 9.3 mg/dL (8.4-10.2); CARBON DIOXIDE 23 mmol/L (22-30); CHLORIDE 105 mmol/L (98-107); GLUCOSE 122 mg/dL (75-110); PHOSPHORUS 2.8 mg/dL (2.5-4.5); POTASSIUM 3.8 mmol/L (3.6-5.0); SODIUM 140.1 mmol/L (137-145)
== END ==
LOC: OD 11:46
PROVIDERS: ATTEND Surgery
DX: N18.9 Chronic kidney disease, unspecified (principal); Z94.0 Kidney transplant status
CPT/HCPCS: 36415; 80048; 80197; 81001; 83735; 84100; 85025

== ENCOUNTER 2019-02-10 03:17 | Emergency (ER) | payer BC ==
[2019-02-10 03:27] VITALS: BP 189/98
--- NOTE | 2019-02-10 04:00 | ER Document Report ---
ED General - General Chief Complaint: Urinary Problem Stated Complaint: BLOOD IN URINE Time Seen by Provider: 02/10/19 03:48 Primary Care Provider: EULOGIO KOVACS MD [NO LOCAL MD] - Follow up as needed TRAVEL OUTSIDE OF THE [place] IN LAST 30 DAYS: No - HPI Notes: Patient is a 48-year-old male that presents to the emergency department for chief complaint of dysuria and hematuria. Patient states he woke up around 1 AM today and had painful urination. He states it was light pink and blood-tinged. He states he has had this happen once before with a urinary tract infection. Patient has polycystic kidneys and history of renal transplant. Patient still has his [place] kidneys. He reports no chronic renal impairment and states his primary care doctor checked his renal function recently and it was normal. Patient denies systemic symptoms including nausea, vomiting, abdominal pain and fevers. Past Medical History: Hypertension, hyperlipidemia, diabetes Past Surgical History: Renal transplant Social History: Denies drugs alcohol and tobacco Family History: Reviewed and noncontributory for presenting illness Allergies: Reviewed, see documented allergy list. REVIEW OF SYSTEMS: CONSTITUTIONAL : No fever No chills No diaphoresis No recent illness EENT: No vision changes No congestion No sore throat CARDIOVASCULAR: No chest pain No palpitations RESPIRATORY: No shortness of breath No cough No difficulty breathing GASTROINTESTINAL: No abdominal pain No nausea No vomiting No diarrhea GENITOURINARY: dysuria hematuria No difficulty urinating MUSCULOSKELETAL: No back pain No leg pain No arm pain SKIN: No rashes No lesions LYMPHATIC: No swollen, enlarged glands. NEUROLOGICAL: No lightheadedness No headache No weakness No paresthesias PSYCHIATRIC: No anxiety No depression PHYSICAL EXAMINATION: Vital signs reviewed, nursing noted reviewed. GENERAL: Well-appearing, overweight and in no acute distress. HEAD: Atraumatic, normocephalic. EYES: Eyes appear normal, extraocular movements intact, sclera anicteric, conjunctiva are normal. ENT: nares patent, oropharynx clear without exudates. Moist mucous membranes. NECK: Normal range of motion, supple without lymphadenopathy LUNGS: Breath sounds clear to auscultation bilaterally and equal. No wheezes rales or rhonchi. HEART: Regular rate and rhythm without murmurs ABDOMEN: No tenderness over renal transplant in right lower quadrant, abdomen soft, nontender, normoactive bowel sounds. No rebound, guarding, or rigidity. No masses appreciated. EXTREMITIES: Nontender, good range of motion, no pitting or edema. NEUROLOGICAL: No focal neurological deficits. Moves all extremities spontaneously Motor and sensory grossly intact on exam. PSYCH: Normal mood, normal affect. SKIN: Warm, Dry, normal turgor, no rashes or lesions noted on exposed skin - Related Data Allergies/Adverse Reactions: lisinopril Allergy (Verified 02/10/19 04:08) morphine Allergy (Verified 02/10/19 04:08) Past Medical History - Social History Smoking Status: Never Smoker Family History: Reviewed & Not Pertinent - Past Medical History Cardiac Medical History: Reports: Hx Hypertension Denies: Hx Coronary Artery Disease, Hx Heart Attack Pulmonary Medical History: Denies: Hx Asthma, Hx Bronchitis, Hx COPD, Hx Pneumonia Neurological Medical History: Denies: Hx Cerebrovascular Accident, Hx Seizures Endocrine Medical History: Reports: Hx Diabetes Mellitus Type 2 - pre Renal/ Medical History: Reports: Hx End Stage Renal Disease - With a kidney transplant no longer on dialysis. Denies: Hx Peritoneal Dialysis GI Medical History: Reports: Hx Gastroesophageal Reflux Disease Musculoskeletal Medical History: Denies Hx Arthritis Past Surgical History: Reports: Hx Kidney (Renal Surgery) - kidney transplant, H x Testicular Surgery - as a child, Hx Vascular Surgery - Fistula left forearm, Other - Kidney transplant - Immunizations Immunizations up to date: Yes Hx Diphtheria, Pertussis, Tetanus Vaccination: Yes Physical Exam - Vital signs Vitals: Temp Pulse Resp BP Pulse Ox 97.6 F 56 L 18 189/98 H 95 02/10/19 03:23 02/10/19 03:23 02/10/19 03:23 02/10/19 03:23 02/10/19 03:23 Course - Re-evaluation Re-evalutation: 02/10/19 03:59 Vitals reviewed. Nursing notes reviewed. Patient is nontoxic and well- appearing. Currently he is not having any discomfort. Because of his history of renal transplant and current hematuria blood work will be obtained to evaluate for his renal function and any acute anemia. Urinalysis also obtained to evaluate for underlying infection. 02/10/19 04:43 Patient's lab work does show a mild leukocytosis. His renal function is at his baseline. He has no severe electrolyte derangements. Patient does have a urinary tract infection which is the likely cause of his acute hematuria and dysuria. Patient was given a dose of Rocephin in the emergency room. He will be started on Keflex. Patient counseled on return precaution and encouraged to follow closely with his primary care providers to monitor renal function. Patient in agreement with plan of care and stable at discharge. Laboratory 02/10/19 02/10/19 02/10/19 03:25 04:08 04:08 WBC 11.9 H RBC 5.30 Hgb 15.8 Hct 47.1 MCV 89 MCH 29.9 MCHC 33.5 RDW 13.8 Plt Count 193 Lymph % (Auto) 12.0 L [place] % (Auto) 6.1 Eos % (Auto) 1.5 Baso % (Auto) 1.0 Absolute Neuts (auto) 9.5 H Absolute Lymphs (auto) 1.4 Absolute Monos (auto) 0.7 Absolute Eos (auto) 0.2 Absolute Basos (auto) 0.1 Seg Neutrophils % 79.4 H Sodium 139.8 Potassium 3.7 Chloride 101 Carbon Dioxide 32 H Anion Gap 7 BUN 21 H Creatinine 1.03 Est GFR ( Amer) > 60 Est GFR (MDRD) Non-Af > 60 Glucose 135 H Calcium 10.0 Urine Color YELLOW Urine Appearance CLOUDY Urine pH 6.0 Ur Specific [place] 1.015 Urine Protein 100 H Urine Glucose (UA) 150 H Urine Ketones NEGATIVE Urine Blood LARGE H Urine Nitrite NEGATIVE Urine Bilirubin NEGATIVE Urine Urobilinogen NEGATIVE Ur Leukocyte Esterase LARGE H Urine WBC (Auto) >182 Urine RBC (Auto) >182 Urine Bacteria (Auto) 1+ Urine WBC Clumps MANY Squamous Epi Cells Auto 2 Urine Ascorbic Acid NEGATIVE - Vital Signs Vital signs: Temp Pulse Resp BP Pulse Ox 97.6 F 56 L 18 189/98 H 95 02/10/19 03:23 02/10/19 03:23 02/10/19 03:23 02/10/19 03:23 02/10/19 03:23 - Laboratory Result Diagrams: 02/10/19 04:08 02/10/19 04:08 Laboratory results interpreted by me: 02/10/19 02/10/19 02/10/19 03:25 04:08 04:08 WBC 11.9 H Lymph % (Auto) 12.0 L Absolute Neuts (auto) 9.5 H Seg Neutrophils % 79.4 H Carbon Dioxide 32 H BUN 21 H Glucose 135 H Urine Protein 100 H Urine Glucose (UA) 150 H Urine Blood LARGE H Ur Leukocyte Esterase LARGE H Discharge - Discharge Clinical Impression: UTI (urinary tract infection) Qualifiers: Urinary tract infection type: acute cystitis Hematuria presence: with hematuria Qualified Code(s): N30.01 - Acute cystitis with hematuria Condition: Stable Disposition: HOME, SELF-CARE Instructions: Urinary Tract Infection ([facility]), Cephalexin ([facility]) Additional Instructions: Please return to the emergency department if you have any worsening, or concern of your symptoms. Please return to the emergency department if you develop fever, flank pain, severe abdominal pain, or ongoing vomiting. Please follow-up with your primary care physician in 2-3 days and any other recommended physicians. If prescribed, take all medications as directed. If you have any questions or concerns do not hesitate to return the emergency department for evaluation. [] Prescriptions: Cephalexin Monohydrate [Keflex 500 mg Capsule] 500 mg PO BID 10 Days capsule Referrals: EULOGIO KOVACS MD [NO LOCAL MD] - Follow up in 3-5 days
[2019-02-10 04:15] LABS: APPEARANCE,URINE CLOUDY; BILIRUBIN,URINE NEGATIVE (NEGATIVE); COLOR,URINE YELLOW; GLUCOSE, URINE 150 mg/dL (NEGATIVE); KETONES,URINE NEGATIVE (NEGATIVE); LEUKOCYTE ESTERASE,URINE LARGE (NEGATIVE); NITRITE,URINE NEGATIVE (NEGATIVE); PROTEIN,URINE 100 mg/dL (NEGATIVE); URINE SPECIFIC GRAVITY 1.015; UROBILINOGEN,URINE NEGATIVE mg/dL (<2.0)
[2019-02-10 04:21] LABS: ABSOLUTE BASOPHILS # (AUTO) 0.1 10^3/uL (0.0-0.2); ABSOLUTE EOSINOPHILS # (AUTO) 0.2 10^3/uL (0.0-0.6); ABSOLUTE LYMPHOCYTES (AUTO) 1.4 10^3/uL (0.5-4.7); ABSOLUTE MONOCYTES (AUTO) 0.7 10^3/uL (0.1-1.4); ABSOLUTE NEUT (AUTO) 9.5 10^3/uL (1.7-8.2); EOSINOPHILS % (AUTO) 1.5 % (0-6); HEMATOCRIT 47.1 % (37.9-51.0); HEMOGLOBIN 15.8 g/dL (13.5-17.0); MEAN CORPUSCULAR HEMOGLOBIN 29.9 pg (27.0-33.4); MEAN CORPUSCULAR HGB CONC 33.5 g/dL (32.0-36.0); MEAN CORPUSCULAR VOLUME 89 fl (80-97); MONOCYTES % (AUTO) 6.1 % (3-13); PLATELET COUNT 193 10^3/uL (150-450); RED CELL DISTRIBUTION WIDTH 13.8 % (11.5-14.0); SEGMENTED NEUTROPHILS % (AUTO) 79.4 % (42-78); TOTAL CELLS COUNTED % (AUTO) 100 %; WHITE BLOOD COUNT 11.9 10^3/uL (4.0-10.5)
[2019-02-10] MEDS ORDERED: LIDOCAINE 1% INJ-PF (10 MG/ML) 30 ML SDV IM ONE (04:23)
[2019-02-10] MEDS ORDERED: CEFTRIAXONE INJ 1000 MG VIAL IM ONE (04:23)
[2019-02-10 04:39] LABS: ANION GAP 7 (5-19); BLOOD UREA NITROGEN 21 mg/dL (7-20); CARBON DIOXIDE 32 mmol/L (22-30); CHLORIDE 101 mmol/L (98-107); GLUCOSE 135 mg/dL (75-110); POTASSIUM 3.7 mmol/L (3.6-5.0)
== END 2019-02-10 04:57 | disposition home or self-care (01) ==
LOC: ER 03:17
DX: N30.01 Acute cystitis with hematuria (principal); R39.198 Other difficulties with micturition; R30.0 Dysuria; I10 Essential (primary) hypertension; E11.9 Type 2 diabetes mellitus without complications
CPT/HCPCS: 99283; 96372; 36415; 87086; 85025; 87088; 80048; 81001; 87186; J3490; J0696

== ENCOUNTER 2019-02-27 01:41 | Emergency (ER) | payer BC ==
[2019-02-27 02:25] LABS: APPEARANCE,URINE SLIGHTLY-CLOUDY; BILIRUBIN,URINE NEGATIVE (NEGATIVE); COLOR,URINE YELLOW; GLUCOSE, URINE >=500 mg/dL (NEGATIVE); KETONES,URINE NEGATIVE (NEGATIVE); LEUKOCYTE ESTERASE,URINE LARGE (NEGATIVE); NITRITE,URINE NEGATIVE (NEGATIVE); PROTEIN,URINE NEGATIVE (NEGATIVE); URINE SPECIFIC GRAVITY 1.015; UROBILINOGEN,URINE NEGATIVE mg/dL (<2.0)
--- NOTE | 2019-02-27 04:10 | ER Document Report ---
HPI - HPI Patient complains to provider of: uti Time Seen by Provider: 02/27/19 04:07 Pain Level: 1 - URINARY Urinary: REPORTS: Dysuria - BURNING Past Medical History - Social History Smoking Status: Unknown if Ever Smoked Family History: Reviewed & Not Pertinent Patient has suicidal ideation: No Patient has homicidal ideation: No - Past Medical History Cardiac Medical History: Reports: Hx Hypertension Denies: Hx Coronary Artery Disease, Hx Heart Attack Pulmonary Medical History: Denies: Hx Asthma, Hx Bronchitis, Hx COPD, Hx Pneumonia Neurological Medical History: Denies: Hx Cerebrovascular Accident, Hx Seizures Endocrine Medical History: Reports: Hx Diabetes Mellitus Type 2 - pre Renal/ Medical History: Reports: Hx End Stage Renal Disease - With a kidney transplant no longer on dialysis. Denies: Hx Peritoneal Dialysis GI Medical History: Reports: Hx Gastroesophageal Reflux Disease Musculoskeletal Medical History: Denies Hx Arthritis Past Surgical History: Reports: Hx Kidney (Renal Surgery) - kidney transplant, Hx Testicular Surgery - as a child, Hx Vascular Surgery - Fistula left forearm, Other - Kidney transplant - Immunizations Immunizations up to date: Yes Hx Diphtheria, Pertussis, Tetanus Vaccination: Yes Vertical Provider Document - INFECTION CONTROL TRAVEL OUTSIDE OF THE [place] IN LAST 30 DAYS: No Course - Vital Signs Vital signs: Temp Pulse Resp BP Pulse Ox 98.5 F 62 16 210/102 H 62 L 02/27/19 01:42 02/27/19 01:42 02/27/19 01:42 02/27/19 01:42 02/27/19 01:42 - Laboratory Result Diagrams: 02/27/19 04:54 02/27/19 04:54 Laboratory results interpreted by me: 02/27/19 01:50 Urine Glucose (UA) >=500 H Ur Leukocyte Esterase LARGE H Discharge - Discharge Clinical Impression: UTI (urinary tract infection) Qualifiers: Urinary tract infection type: acute cystitis Hematuria presence: with hematuria Qualified Code(s): N30.01 - Acute cystitis with hematuria Condition: Good Disposition: HOME, SELF-CARE Instructions: Urinary Tract Infection ([facility]) Additional Instructions: Follow-up with PCP/urology/oncology in 1 to 2 days. Return for any worsening symptoms. We will call you with any abnormal results that require change in your plan of care. Take the medication as prescribed. Your blood pressure was elevated here today. Follow-up with your primary care doctor for a recheck of this as you may need your medication adjusted. Prescriptions: Cephalexin Monohydrate [Keflex 500 mg Capsule] 500 mg PO BID 10 Days #20 capsule Referrals: CALVIN ALSTON MD [NO LOCAL MD] - Follow up tomorrow
[2019-02-27 05:10] LABS: ABSOLUTE BASOPHILS # (AUTO) 0.1 10^3/uL (0.0-0.2); ABSOLUTE EOSINOPHILS # (AUTO) 0.2 10^3/uL (0.0-0.6); ABSOLUTE LYMPHOCYTES (AUTO) 1.4 10^3/uL (0.5-4.7); ABSOLUTE MONOCYTES (AUTO) 0.7 10^3/uL (0.1-1.4); ABSOLUTE NEUT (AUTO) 5.8 10^3/uL (1.7-8.2); BASOPHILS % (AUTO) 1.5 % (0-2); EOSINOPHILS % (AUTO) 2.3 % (0-6); HEMATOCRIT 45.4 % (37.9-51.0); HEMOGLOBIN 15.4 g/dL (13.5-17.0); LYMPHOCYTES % (AUTO) 17.1 % (13-45); MEAN CORPUSCULAR HEMOGLOBIN 30.4 pg (27.0-33.4); MEAN CORPUSCULAR VOLUME 89 fl (80-97); MONOCYTES % (AUTO) 8.7 % (3-13); PLATELET COUNT 194 10^3/uL (150-450); RED BLOOD COUNT 5.08 10^6/uL (4.35-5.55); RED CELL DISTRIBUTION WIDTH 13.5 % (11.5-14.0); SEGMENTED NEUTROPHILS % (AUTO) 70.4 % (42-78); TOTAL CELLS COUNTED % (AUTO) 100 %; WHITE BLOOD COUNT 8.3 10^3/uL (4.0-10.5)
[2019-02-27 05:26] LABS: ALBUMIN 3.9 g/dL (3.5-5.0); ALKALINE PHOSPHATASE 49 U/L (38-126); ANION GAP 8 (5-19); ASPARTATE AMINO TRANSFERASE 19 U/L (17-59); BILIRUBIN,DIRECT 0.1 mg/dL (0.0-0.4); BILIRUBIN,TOTAL 0.7 mg/dL (0.2-1.3); BLOOD UREA NITROGEN 24 mg/dL (7-20); CALCIUM 9.7 mg/dL (8.4-10.2); CARBON DIOXIDE 28 mmol/L (22-30); CHLORIDE 103 mmol/L (98-107); GLUCOSE 160 mg/dL (75-110); POTASSIUM 3.8 mmol/L (3.6-5.0); TOTAL PROTEIN 6.1 g/dL (6.3-8.2)
[2019-02-27 05:45] VITALS: BP 171/91
[2019-02-27] MEDS ORDERED: CEFTRIAXONE INJ 250 MG VIAL IM ONE (05:45)
[2019-02-27] MEDS ORDERED: LIDOCAINE 1% INJ-PF (10 MG/ML) 30 ML SDV NEB ONE (05:45)
[2019-02-27 07:11] LABS: CHLAM PCR NOT DETECTED (NOT DETECT)
== END 2019-02-27 06:14 | disposition home or self-care (01) ==
LOC: ER 01:41
DX: N30.01 Acute cystitis with hematuria (principal); I12.0 Hypertensive chronic kidney disease with stage 5 chronic kidney disease or end stage renal disease; N18.6 End stage renal disease; Z94.0 Kidney transplant status; R73.03 Prediabetes
CPT/HCPCS: 94640; 99283; 96372; 36415; 87086; 85025; 87088; 80053; 81001; 87186; 87491; 87591; J3490; J0696

== ENCOUNTER → 2019-03-10 | Outpatient (CLI) | payer BC ==
[2019-03-10 10:12] LABS: ABSOLUTE BASOPHILS # (AUTO) 0.1 10^3/uL (0.0-0.2); ABSOLUTE EOSINOPHILS # (AUTO) 0.1 10^3/uL (0.0-0.6); ABSOLUTE MONOCYTES (AUTO) 0.6 10^3/uL (0.1-1.4); ABSOLUTE NEUT (AUTO) 7.1 10^3/uL (1.7-8.2); BASOPHILS % (AUTO) 1.2 % (0-2); EOSINOPHILS % (AUTO) 1.6 % (0-6); HEMATOCRIT 47.2 % (37.9-51.0); HEMOGLOBIN 16.1 g/dL (13.5-17.0); LYMPHOCYTES % (AUTO) 11.4 % (13-45); MEAN CORPUSCULAR HEMOGLOBIN 30.2 pg (27.0-33.4); MEAN CORPUSCULAR HGB CONC 34.2 g/dL (32.0-36.0); MEAN CORPUSCULAR VOLUME 88 fl (80-97); MONOCYTES % (AUTO) 6.8 % (3-13); PLATELET COUNT 196 10^3/uL (150-450); RED BLOOD COUNT 5.35 10^6/uL (4.35-5.55); RED CELL DISTRIBUTION WIDTH 13.8 % (11.5-14.0); TOTAL CELLS COUNTED % (AUTO) 100 %; WHITE BLOOD COUNT 8.9 10^3/uL (4.0-10.5)
[2019-03-10 10:28] LABS: APPEARANCE,URINE CLEAR; BILIRUBIN,URINE NEGATIVE (NEGATIVE); COLOR,URINE STRAW; GLUCOSE, URINE NEGATIVE (NEGATIVE); KETONES,URINE NEGATIVE (NEGATIVE); LEUKOCYTE ESTERASE,URINE NEGATIVE (NEGATIVE); NITRITE,URINE NEGATIVE (NEGATIVE); PROTEIN,URINE NEGATIVE (NEGATIVE); UROBILINOGEN,URINE NEGATIVE mg/dL (<2.0)
[2019-03-10 10:50] LABS: ALBUMIN 4.5 g/dL (3.5-5.0); ALKALINE PHOSPHATASE 58 U/L (38-126); ANION GAP 12 (5-19); ASPARTATE AMINO TRANSFERASE 30 U/L (17-59); BILIRUBIN,DIRECT 0.3 mg/dL (0.0-0.4); BLOOD UREA NITROGEN 25 mg/dL (7-20); CALCIUM 10.2 mg/dL (8.4-10.2); CARBON DIOXIDE 31 mmol/L (22-30); CHLORIDE 98 mmol/L (98-107); GLUCOSE 127 mg/dL (75-110); PHOSPHORUS 3.4 mg/dL (2.5-4.5); POTASSIUM 4.1 mmol/L (3.6-5.0); TOTAL PROTEIN 6.8 g/dL (6.3-8.2)
[2019-03-10 11:01] LABS: UR PRO/CREAT RATIO RESULT 0.5 mg/mg (0.0-0.2); URINE PROTEIN 21.4 mg/dL (<12)
== END ==
LOC: OD 09:20
PROVIDERS: ATTEND Internal Medicine
DX: Z94.0 Kidney transplant status (principal)
CPT/HCPCS: 36415; 80053; 80197; 81001; 82306; 82570; 83970; 84100; 84156; 85025

== ENCOUNTER 2020-01-08 21:18 | Inpatient (IN) | payer BC ==
[2020-01-08] MEDS ORDERED: ACETAMINOPHEN 325 MG TABLET PO ONE (21:46)
--- NOTE | 2020-01-08 21:49 | ER Document Report ---
ED General - General Chief Complaint: Shortness Of Breath Stated Complaint: SHORTNESS OF BREATH Time Seen by Provider: 01/08/20 21:27 Notes: Patient is a 49-year-old male that comes to the emergency department for chief complaint of shortness of breath, cough, difficulty breathing, weakness, dizziness, and intermittent diarrhea. Symptoms started Sunday, he was tested on Sunday, he was contacted today and informed he was positive for COVID-[address] Shelton' office. Patient states that his breathing was fine until this afternoon evening when he started becoming more short of breath. He denies specific chest pain. He denies passing out. He denies vomiting. He denies smoking, asthma. Past medical history includes polycystic kidney disease, renal transplant on two antirejection medications and 5 mg prednisone daily. He also has a history of hypertension, hyperlipidemia, type 2 diabetes on metformin. He follows with [facility] transplant team. TRAVEL OUTSIDE OF THE [place] IN LAST 30 DAYS: No - Related Data Allergies/Adverse Reactions: lisinopril Allergy (Verified 01/08/20 21:20) morphine Allergy (Verified 01/08/20 21:20) Past Medical History - General Information source: Patient - Social History Smoking Status: Former Smoker Frequency of alcohol use: None Drug Abuse: None Family History: Reviewed & Not Pertinent Patient has homicidal ideation: No - Past Medical History Cardiac Medical History: Reports: Hx Hypertension Denies: Hx Coronary Artery Disease, Hx Heart Attack Pulmonary Medical History: Denies: Hx Asthma, Hx Bronchitis, Hx COPD, Hx Pneumonia Neurological Medical History: Denies: Hx Cerebrovascular Accident, Hx Seizures Endocrine Medical History: Reports: Hx Diabetes Mellitus Type 2 - pre Renal/ Medical History: Reports: Hx End Stage Renal Disease - With a kidney transplant no longer on dialysis. Denies: Hx Peritoneal Dialysis GI Medical History: Reports: Hx Gastroesophageal Reflux Disease Musculoskeletal Medical History: Denies Hx Arthritis Past Surgical History: Reports: Hx Kidney (Renal Surgery) - kidney transplant, Hx Testicular Surgery - as a child, Hx Vascular Surgery - Fistula left forearm, Other - Kidney transplant - Immunizations Immunizations up to date: Yes Hx Diphtheria, Pertussis, Tetanus Vaccination: Yes Review of Systems - Review of Systems Constitutional: See HPI EENT: No symptoms reported Cardiovascular: See HPI Respiratory: See HPI Gastrointestinal: See HPI Genitourinary: No symptoms reported Male Genitourinary: No symptoms reported Musculoskeletal: No symptoms reported Skin: No symptoms reported Hematologic/Lymphatic: No symptoms reported Neurological/Psychological: No symptoms reported Physical Exam - Vital signs Vitals: Temp 101.9 F H 01/08/20 21:21 - Notes Notes: GENERAL: Flushed and somewhat ill-appearing but still alert and conversational HEAD: Normocephalic, atraumatic. EYES: Pupils equal, round, and reactive to light. Extraocular movements intact. ENT: Oral mucosa dry, tongue midline. Oropharynx unremarkable. Airway patent. Nares patent, sinuses non-tender, ear canals unremarkable, TM's intact. NECK: Full range of motion. Supple. Trachea midline. No lymphadenopathy. LUNGS: Occasional mild cough but no wheezes, rales, or rhonchi. No respiratory distress. Speaks in full sentences. HEART: Regular rate and rhythm. No murmur ABDOMEN: Soft, non-tender. Non-distended. EXTREMITIES: Moves all 4 extremities spontaneously. No edema, normal radial and dorsalis pedis pulses bilaterally. No cyanosis. BACK: no cervical, thoracic, lumbar midline tenderness. No saddle anesthesia, normal distal neurovascular exam. Moves all extremities in full range of motion. NEUROLOGICAL: Alert and oriented x3. Normal speech. Cranial nerves II through XII grossly intact. Strength 5/5 in all extremities. PSYCH: Normal affect, normal mood. SKIN: Flushed Course - Re-evaluation Re-evalutation: Patient is ill-appearing, mildly hypoxic on room air, placed on 2 L nasal cannula. However patient is able to converse in full sentences, he does have clear lungs on auscultation, his remaining exam is unremarkable. I am very concerned because patient is on immunosuppressive therapy, he is febrile, and he is positive for COVID-19 already. CBC unremarkable, chemistry shows creatinine of 1.34, otherwise chemistry is nonspecific. Troponin is indeterminate. Chest x-ray shows patchy bilateral pneumonia. Patient will require admission to the hospital, started on Rocephin, azithromycin, lactic acid is unremarkable, venous blood gas unremarkable, blood cultures are pending. Discussed with Dr. Price, he recommends Decadron as well, this was given. Discussed with patient and , they state understanding and agreement with admission. Discussed with hospitalist, Dr. Sawant, patient accepted to medical floor full admission. - Vital Signs Vital signs: Temp Pulse Resp BP Pulse Ox 98.5 F 60 19 95/80 L 95 01/09/20 03:06 01/09/20 03:50 01/09/20 03:06 01/09/20 03:06 01/09/20 03:06 - Laboratory Result Diagrams: 01/08/20 22:28 01/08/20 22:28 Laboratory results interpreted by me: 01/08/20 01/08/20 01/08/20 22:28 22:28 22:28 Lymph % (Auto) 9.2 L Seg Neutrophils % 86.1 H D-Dimer VBG pH 7.45 H Sodium 133.1 L Potassium 3.2 L Creatinine 1.34 H Est GFR (MDRD) Non-Af 57 L Glucose 133 H Total Protein 6.0 L 01/08/20 22:28 Lymph % (Auto) Seg Neutrophils % D-Dimer 1.11 H VBG pH Sodium Potassium Creatinine Est GFR (MDRD) Non-Af Glucose Total Protein - EKG Interpretation by Me Additional EKG results interpreted by me: EKG shows sinus rhythm at a rate of 60, QTC of 444, left axis deviation, multiple PVCs, no T wave inversions or ST segment changes in consecutive leads. Discharge - Discharge Clinical Impression: Pneumonia due to COVID-19 virus, Cough, Hypoxia Fever Qualifiers: Fever type: unspecified Qualified Code(s): R50.9 - Fever, unspecified Condition: Serious Disposition: ADMITTED INPATIENT Admitting Provider: Savana (Hospitalist) Unit Admitted: Medical Floor
[2020-01-08 22:51] LABS: VENOUS BLOOD HCO3 25.7 mmol/L (20-32); VENOUS BLOOD PCO2 37.6 mmHg (35-63); VENOUS BLOOD PH 7.45 (7.30-7.42)
[2020-01-08 22:53] LABS: ABSOLUTE LYMPHOCYTES (AUTO) 0.9 10^3/uL (0.5-4.7); ABSOLUTE MONOCYTES (AUTO) 0.4 10^3/uL (0.1-1.4); ABSOLUTE NEUT (AUTO) 8.2 10^3/uL (1.7-8.2); BASOPHILS % (AUTO) 0.1 % (0-2); HEMATOCRIT 46.2 % (37.9-51.0); LYMPHOCYTES % (AUTO) 9.2 % (13-45); MEAN CORPUSCULAR HEMOGLOBIN 31.1 pg (27.0-33.4); MEAN CORPUSCULAR HGB CONC 34.7 g/dL (32.0-36.0); MEAN CORPUSCULAR VOLUME 90 fl (80-97); MONOCYTES % (AUTO) 4.6 % (3-13); PLATELET COUNT 150 10^3/uL (150-450); RED BLOOD COUNT 5.15 10^6/uL (4.35-5.55); RED CELL DISTRIBUTION WIDTH 13.6 % (11.5-14.0); SEGMENTED NEUTROPHILS % (AUTO) 86.1 % (42-78); TOTAL CELLS COUNTED % (AUTO) 100 %; WHITE BLOOD COUNT 9.5 10^3/uL (4.0-10.5)
[2020-01-08 22:56] LABS: INTERNATIONAL RATION (INR) 0.96; PROTHROMBIN TIME 12.8 SEC (11.4-15.4)
--- NOTE | 2020-01-08 22:57 | RADIOLOGY REPORT (SQ) ---
XR CHEST 1 VIEW CLINICAL STATEMENT: shortness of breath, fever, cough, + COVID COMPARISON: 08/24/2017 FINDINGS: Heart is moderately enlarged. No pneumothorax. No significant pleural effusions. Mild patchy multifocal bilateral lung airspace disease is noted consistent with pneumonia. No pleural effusions. IMPRESSION: Patchy bilateral multifocal pneumonia.
[2020-01-08] MEDS ORDERED: AZITHROMYCIN INJ 500 MG VIAL IV ONE (23:06)
[2020-01-08] MEDS ORDERED: CEFTRIAXONE 1 GM/D5W RTU 1 GM/50 ML RTUPB IV ONE (23:06)
[2020-01-08] MEDS ORDERED: DEXAMETHASONE SOD PHOS INJ 10 MG/1 ML VIAL IV ONE (23:15)
[2020-01-08 23:17] LABS: ALBUMIN 3.5 g/dL (3.5-5.0); ALKALINE PHOSPHATASE 42 U/L (38-126); ANION GAP 9 (5-19); ASPARTATE AMINO TRANSFERASE 29 U/L (17-59); BILIRUBIN,DIRECT 0.2 mg/dL (0.0-0.4); BILIRUBIN,TOTAL 0.9 mg/dL (0.2-1.3); BLOOD UREA NITROGEN 20 mg/dL (7-20); CALCIUM 8.5 mg/dL (8.4-10.2); CARBON DIOXIDE 25 mmol/L (22-30); CHLORIDE 99 mmol/L (98-107); GLUCOSE 133 mg/dL (75-110); POTASSIUM 3.2 mmol/L (3.6-5.0)
[2020-01-09] MEDS ORDERED: ENOXAPARIN SODIUM INJ 120 MG/0.8 ML DISP.SYRIN SUBCUT SCH (00:45)
--- NOTE | 2020-01-09 01:11 | EKG REPORT ---
SEVERITY:- ABNORMAL ECG - SINUS RHYTHM MULTIPLE VENTRICULAR PREMATURE COMPLEXES PROBABLE LEFT ATRIAL ABNORMALITY LEFT ANTERIOR FASCICULAR BLOCK ABNRM R PROG, CONSIDER ASMI OR LEAD PLACEMENT : Confirmed by: Robinson Mendez 09-Jan-2020 01:10:35
[2020-01-09] MEDS ORDERED: GUAIFENESIN SYRP 200 MG/10 ML UDC PO PRN (01:26)
[2020-01-09] MEDS ORDERED: ALBUTEROL SULFATE HFA (90 MCG/PUFF) 8 GM MDI IH PRN (01:26)
[2020-01-09] MEDS ORDERED: ACETAMINOPHEN 325 MG TABLET PO PRN (01:26)
[2020-01-09] MEDS ORDERED: HYDRALAZINE HCL INJ/PF 20 MG/1 ML SDV IV PRN (01:35)
[2020-01-09] MEDS ORDERED: LORAZEPAM INJ 2 MG/1 ML VIAL IV PRN (01:35)
[2020-01-09] MEDS ORDERED: HYDROMORPHONE HCL INJ/PF 2 MG/ML AMPULE IV PRN (01:35)
[2020-01-09] MEDS ORDERED: DEXTROSE 40% GEL 15 GM TUBE PO PRN ×2 (01:39)
[2020-01-09] MEDS ORDERED: GLUCAGON,HUMAN RECOMB 1 MG INJ IM PRN (01:39)
[2020-01-09] MEDS ORDERED: DEXTROSE 50%-WATER 25 GM/50 ML DISP.SYRIN IV PRN ×2 (01:39)
--- NOTE | 2020-01-09 06:45 | PDOC H&P ---
History of Present Illness Admission Date/PCP: 01/09/20 00:43 CALVIN ALSTON MD Patient complains of: Dyspnea History of Present Illness: KIMBERLEY HASSAN is a 49 year old male who presented emergency room with a 5-day history of dyspnea. He admits developing progressively worsening dyspnea over the course of the last 5 days. His dyspnea became severe and prompted his presentation to the emergency room. He endorses the accompanying symptoms of a nonproductive cough and "tightness" throughout his chest. He further endorses the associated symptoms of generalized weakness, dizziness and intermittent diarrhea. His dyspnea is worsened with exertion or activity. He was evaluated by his primary care provider 3 days ago and was informed yesterday prior to the accelerated progression of his symptoms that he was positive for COVID-19. He denies prior similar symptoms. He denies other associated or accompanying signs and symptoms. He denies identification of any additional aggravating or ameliorating factors for his dyspnea. In the emergency room he was found to have a bilateral pneumonia on chest x-ray and a fever of 101.9 F. He was also noted to have acute respiratory failure with hypoxia requiring supplemental oxygen at 2 L/min via nasal cannula to maintain an adequate oxygen saturation. He was subsequently admitted to the COVID-19 unit on a medical bed. Past Medical History Cardiac Medical History: Reports: Hyperlipidema, Hypertension Denies: Coronary Artery Disease, Myocardial Infarction Pulmonary Medical History: Denies: Asthma, Bronchitis, Chronic Obstructive Pulmonary Disease (COPD), Pneumonia, Sleep Apnea EENT Medical History: Denies: Cataracts, Ears - Hearing aids Neurological Medical History: Denies: Hemorrhagic CVA, Ischemic CVA, Seizures Endocrine Medical History: Reports: Diabetes Mellitus Type 2 - pre, Obesity Denies: Diabetes Mellitus Type 1, Hyperthyroidism, Hypothyroidism Renal/ Medical History: Reports: End Stage Renal Disease - With a kidney transplant no longer on dialysis, Other - Congenital polycystic kidney disease Malignancy Medical History: Reports: None GI Medical History: Reports: Gastroesophageal Reflux Disease Denies: Cirrhosis, Crohn's Disease, Hepatitis, Peptic Ulcer Disease, Ulcerative Colitis Musculoskeltal Medical History: Denies: Arthritis, Fibromyalgia Skin Medical History: Denies: Eczema, Psoriasis Psychiatric Medical History: Denies: Alcohol Dependency, Substance Abuse, Tobacco Dependency Hematology: Reports: Anemia Denies: Bleeding Tendencies Infectious Medical History: Reports: None Past Surgical History Past Surgical History: Reports: Renal Transplant, Vascular Surgery - Hemodialysis fistula left forearm Social History Information Source: Patient Lives with: Spouse/Significant other Smoking Status: Former Smoker Electronic Cigarette use?: No Frequency of Alcohol Use: None Hx Recreational Drug Use: No Drugs: None Hx Prescription Drug Abuse: No - Advance Directive Resuscitation Status: Full Code Surrogate healthcare decision maker:: Christidemarco Hassan Family History Family History: DM, Hypertension, Other - Polycystic kidney disease. denies: CAD, Malignancy Parental Family History Reviewed: Yes Children Family History Reviewed: No Sibling(s) Family History Reviewed.: Yes Medication/Allergy Home Medications: Furosemide [Lasix 40 mg Tablet] 40 mg PO BID 07/06/15 Labetalol HCl [Trandate] 300 mg PO BID 07/06/15 Losartan Potassium 100 mg PO DAILY 07/06/15 Omeprazole 40 mg PO BID 07/06/15 Glipizide [Glucotrol] 10 mg PO DAILY 08/20/18 Multivitamin [Daily Multiple Vitamin] 1 each PO DAILY 08/20/18 Mycophenolate Sodium [Myfortic 180 Mg Tablet.Dr] 540 mg PO BID 08/20/18 Prednisone [Deltasone 5 mg Tablet] 5 mg PO DAILY 08/20/18 Tacrolimus [Envarsus Xr] 3 mg PO DAILY 08/20/18 Amlodipine Besylate [Norvasc 5 mg Tablet] 5 mg PO DAILY 01/09/20 Atorvastatin Calcium [Lipitor 10 mg Tablet] 10 mg PO QHS 01/09/20 Metformin HCl [Metformin HCl ER] 1,000 mg PO BID 01/09/20 Allergies/Adverse Reactions: lisinopril Allergy (Verified 01/08/20 21:20) morphine Allergy (Verified 01/08/20 21:20) Review of Systems Constitutional: PRESENT: as per HPI, weakness. ABSENT: chills, fever(s) Eyes: ABSENT: visual disturbances, other - Eye pain Ears: ABSENT: hearing changes, other - Ear pain Nose, Mouth, and Throat: ABSENT: headache(s), sore throat Cardiovascular: PRESENT: as per HPI, dyspnea on exertion. ABSENT: palpitations Respiratory: PRESENT: as per HPI, cough, dyspnea. ABSENT: hemoptysis, sputum Gastrointestinal: PRESENT: as per HPI, diarrhea. ABSENT: abdominal pain, constipation, hematochezia, melena, nausea, vomiting Genitourinary: ABSENT: dysuria, hematuria Musculoskeletal: ABSENT: back pain, joint swelling Integumentary: ABSENT: pruritus, rash Neurological: ABSENT: confusion, convulsions, focal weakness, memory loss, syncope Psychiatric: ABSENT: anxiety, depression Endocrine: ABSENT: cold intolerance, heat intolerance Hematologic/Lymphatic: ABSENT: easy bleeding, easy bruising Allergic/Immunologic: ABSENT: seasonal rhinorrhea Physical Exam Vital Signs: Temp Pulse Resp BP Pulse Ox 101.9 F H 20 107/71 97 01/08/20 21:21 01/08/20 22:31 01/08/20 22:31 01/08/20 22:31 Intake & Output 01/07/20 01/08/20 01/09/20 23:59 23:59 23:59 Weight 119.748 kg General appearance: PRESENT: mild distress - Secondary to dyspnea, morbidly obese, other - On supplemental oxygen via nasal cannula at the time of my evaluation Head exam: PRESENT: atraumatic, normocephalic Eye exam: PRESENT: conjunctiva pink. ABSENT: conjunctival injection, scleral icterus Ear exam: PRESENT: normal external ear exam. ABSENT: bleeding, drainage Mouth exam: PRESENT: dry mucosa, neck supple Neck exam: ABSENT: thyromegaly, tracheal deviation Respiratory exam: PRESENT: accessory muscle use - Minimal, clear to auscultation darinel, symmetrical, tachypnea - Mild. ABSENT: rales, rhonchi Cardiovascular exam: PRESENT: RRR. ABSENT: clicks, gallop, rubs Pulses: PRESENT: normal radial pulses, normal dorsalis pedis pul Vascular exam: PRESENT: normal capillary refill. ABSENT: pallor GI/Abdominal exam: PRESENT: normal bowel sounds, soft. ABSENT: tenderness Rectal exam: PRESENT: deferred Extremities exam: PRESENT: other - dialysis fistula LUE noted. ABSENT: joint swelling, pedal edema Musculoskeletal exam: ABSENT: deformity, dislocation Neurological exam: PRESENT: alert, oriented to person, oriented to place, oriented to time, oriented to situation, CN II-XII grossly intact. ABSENT: motor sensory deficit Psychiatric exam: PRESENT: appropriate affect, normal mood Skin exam: PRESENT: dry, intact, warm. ABSENT: jaundice, rash, urticaria Results Laboratory Results: 01/08/20 22:28 01/08/20 22:28 01/08/20 01/08/20 01/08/20 22:28 22:28 22:28 WBC 9.5 RBC 5.15 Hgb 16.0 Hct 46.2 MCV 90 MCH 31.1 MCHC 34.7 RDW 13.6 Plt Count 150 Seg Neutrophils % 86.1 H VBG pH 7.45 H VBG pCO2 37.6 VBG HCO3 25.7 VBG Base Excess 2.0 Sodium 133.1 L Potassium 3.2 L Chloride 99 Carbon Dioxide 25 Anion Gap 9 BUN 20 Creatinine 1.34 H Est GFR ( Amer) > 60 Glucose 133 H Lactic Acid Calcium 8.5 Magnesium Total Bilirubin 0.9 AST 29 Alkaline Phosphatase 42 Total Protein 6.0 L Albumin 3.5 01/08/20 01/08/20 22:28 22:28 WBC RBC Hgb Hct MCV MCH MCHC RDW Plt Count Seg Neutrophils % VBG pH VBG pCO2 VBG HCO3 VBG Base Excess Sodium Potassium Chloride Carbon Dioxide Anion Gap BUN Creatinine Est GFR ( Amer) Glucose Lactic Acid 1.3 Calcium Magnesium 1.8 Total Bilirubin AST Alkaline Phosphatase Total Protein Albumin 01/08/20 22:28 Troponin I 0.038 Impressions: Chest X-Ray 01/08/20 21:47 IMPRESSION: Patchy bilateral multifocal pneumonia. Assessment and Plan - Diagnosis (1) Pneumonia due to COVID-19 virus Is this a current diagnosis for this admission?: Yes (2) Acute respiratory failure with hypoxia Is this a current diagnosis for this admission?: Yes (3) Type 2 diabetes mellitus with morbid obesity Is this a current diagnosis for this admission?: Yes (4) Hypertension Qualifiers: Hypertension type: unspecified Qualified Code(s): I10 - Essential (primary) hypertension Is this a current diagnosis for this admission?: Yes (5) Hyperlipidemia Qualifiers: Hyperlipidemia type: unspecified Qualified Code(s): E78.5 - Hyperlipidemia, unspecified Is this a current diagnosis for this admission?: Yes (6) Status post kidney transplant Is this a current diagnosis for this admission?: Yes (7) Immunosuppressed status Is this a current diagnosis for this admission?: Yes - Plan Summary Summary: Patient is admitted to a medical bed on the COVID-19 care unit, where he will receive routine supportive and symptomatic cares. He will receive supplemental oxygen via nasal cannula as needed to maintain an adequate oxygen saturation. The addition of non-invasive airway pressure support devices for maintenance of an adequate oxygen saturation will be employed as needed. He will be treated with IV antibiotics utilizing azithromycin and Rocephin. He will receive Lovenox 1 mg/kg every 12 hours subcutaneously. He will receive Ativan 1 mg IV every 4 hours as needed for anxiety or restlessness. He will receive Dilaudid 0.5 to 2 mg IV every 3 hours as needed for pain. CBCs, metabolic profiles and additional laboratory and/or radiographic evaluations will be obtained as appropriate. Patient will be on a cardiac and diabetic restricted diet. Before meals and at bedtime Accu-Cheks will be obtained and sliding scale insulin will be used for hyperglycemia with a hypoglycemic protocol in place. Patient's usual medications will be resumed, where appropriate, once his medication list has been verified and reconciled. - Time Time Spent with patient: 15-24 minutes Medications reviewed and adjusted accordingly: Yes Anticipated Discharge Disposition: Home with Home Health Anticipated Discharge: Other - uncertain Anticipated discharge: Home - Inpatient Certification Based on my medical assessment, after consideration of the patient's comorbidities, presenting symptoms, or acuity I expect that the services needed warrant INPATIENT care.: Yes I certify that my determination is in accordance with my understanding of Medicare's requirements for reasonable and necessary INPATIENT services [42 CFR 412.3e].: Yes Medical Necessity: Significant Comorbidiites Make Outpatient Treatment Too [place]is [place], Need Close Monitoring Due to Risk of Patient Decompensation, Need for IV Antibiotics, Risk of Complication if Not Cared For in Hospital, Risk of Diagnosis Which Will Require Inpatient Eval/Care/Monitoring
[2020-01-09] MEDS: ENOXAPARIN SODIUM INJ 120 MG/0.8 ML DISP.SYRIN SUBCUT SCH ×2 (09:17→21:55)
[2020-01-09] MEDS: GUAIFENESIN 600 MG TABLET.SA PO SCH ×2 (09:17→21:55)
[2020-01-09] MEDS: INSULIN REG, HUMAN 100 UNIT/ML 3 ML VIAL (PYX) SUBCUT PRN ×2 (09:17→12:00)
[2020-01-09] MEDS: FAMOTIDINE 20 MG TABLET PO SCH ×2 (09:17→21:54)
[2020-01-09] MEDS: ZINC SULFATE 220 MG CAPSULE PO SCH (09:17)
[2020-01-09] MEDS: CEFTRIAXONE 1 GM/D5W RTU 1 GM/50 ML RTUPB IV SCH (09:21)
[2020-01-09] MEDS: DEXAMETHASONE SOD PHOS INJ 10 MG/1 ML VIAL IV SCH (10:11)
--- NOTE | 2020-01-09 15:48 | Progress Note ---
Provider Note Provider Note: He said he tested for coronavirus on Sunday and got the results yesterday, and then sometime after he got the results he started getting short of breath and so he came to the hospital. He was a little bit hypoxic but is stable on 2 L per nasal cannula. He is being treated empirically for bacterial pneumonia, but because of his positive coronavirus test and his hypoxemia I have added IV dexamethasone. If he deteriorates further we may have to try to obtain some remdesivir. We will continue his antirejection drugs for his history of renal transplant.
[2020-01-09] MEDS: INSULIN REG, HUMAN 100 UNIT/ML 3 ML VIAL (PYX) SUBCUT SCH ×2 (16:41→21:55)
[2020-01-09] MEDS ORDERED: ALBUTEROL SULFATE HFA (90 MCG/PUFF) 200 PUFF/8.5 GM MDI IH PRN (20:53)
[2020-01-09] MEDS: MELATONIN 5 MG TABLET PO PRN (21:54)
[2020-01-09] MEDS ORDERED: AZITHROMYCIN 500 MG in DEXTROSE 5%-WATER 250 ML IV SCH (22:00)
[2020-01-10 05:18] LABS: HEMATOCRIT 48.3 % (37.9-51.0); HEMOGLOBIN 16.4 g/dL (13.5-17.0); MEAN CORPUSCULAR HEMOGLOBIN 30.8 pg (27.0-33.4); MEAN CORPUSCULAR HGB CONC 33.9 g/dL (32.0-36.0); MEAN CORPUSCULAR VOLUME 91 fl (80-97); PLATELET COUNT 186 10^3/uL (150-450); RED BLOOD COUNT 5.32 10^6/uL (4.35-5.55); RED CELL DISTRIBUTION WIDTH 13.6 % (11.5-14.0); WHITE BLOOD COUNT 11.9 10^3/uL (4.0-10.5)
[2020-01-10 05:37] LABS: ANION GAP 8 (5-19); BLOOD UREA NITROGEN 30 mg/dL (7-20); CALCIUM 8.8 mg/dL (8.4-10.2); CARBON DIOXIDE 26 mmol/L (22-30); CHLORIDE 101 mmol/L (98-107); GLUCOSE 179 mg/dL (75-110); POTASSIUM 3.3 mmol/L (3.6-5.0)
[2020-01-10] MEDS: INSULIN REG, HUMAN 100 UNIT/ML 3 ML VIAL (PYX) SUBCUT SCH (07:45)
[2020-01-10] MEDS ORDERED: (PENDING PHARMACY ID) (Mycophenolate Sodium 540 MG) PO SCH (10:00)
[2020-01-10] MEDS ORDERED: (PENDING PHARMACY ID) (Losartan Potassium [Losartan Potassium] 100 MG) PO SCH (10:00)
[2020-01-10] MEDS ORDERED: TACROLIMUS 3 MG PO SCH (10:00)
[2020-01-10] MEDS ORDERED: (PENDING PHARMACY ID) (Labetalol Hcl [Trandate] 300 MG) PO SCH (10:00)
[2020-01-10] MEDS: LABETALOL HCL 200 MG TABLET PO SCH ×4 (10:10→22:26)
[2020-01-10] MEDS: DEXAMETHASONE SOD PHOS INJ 10 MG/1 ML VIAL IV SCH (10:10)
[2020-01-10] MEDS: MULTIVITAMIN TABLET PO SCH (10:10)
[2020-01-10] MEDS: GUAIFENESIN 600 MG TABLET.SA PO SCH ×2 (10:10→22:20)
[2020-01-10] MEDS: FAMOTIDINE 20 MG TABLET PO SCH ×2 (10:11→22:20)
[2020-01-10] MEDS: ZINC SULFATE 220 MG CAPSULE PO SCH (10:11)
[2020-01-10] MEDS: LOSARTAN POTASSIUM 50 MG TABLET PO SCH (10:11)
[2020-01-10] MEDS: AMLODIPINE BESYLATE 5 MG TABLET PO SCH (10:11)
[2020-01-10] MEDS: CEFTRIAXONE 1 GM/D5W RTU 1 GM/50 ML RTUPB IV SCH (10:11)
[2020-01-10] MEDS: ENOXAPARIN SODIUM INJ 120 MG/0.8 ML DISP.SYRIN SUBCUT SCH ×2 (10:11→22:22)
[2020-01-10] MEDS ORDERED: TACROLIMUS ANHYDROUS 1 MG CAPSULE PO SCH (11:00)
[2020-01-10] MEDS: INSULIN LISPRO 100 UNIT/ML 3 ML VIAL SUBCUT SCH ×3 (12:02→22:23)
[2020-01-10] MEDS ORDERED: POTASSIUM CHLORIDE 10 MEQ TABLET.ER PO ONE (12:07)
--- NOTE | 2020-01-10 14:02 | PDOC PROGRESS REPORT ---
Subjective Progress Note for:: 01/10/20 Subjective:: KIMBERLEY HASSAN is a 49 past medical history of end-stage renal disease status post renal transplant 2016 on chronic immunosuppressive therapy, due to ED complaining of 5 days of dyspnea. He was evaluated by his primary care provider 3 days ago and was informed yesterday prior to the accelerated progression of his symptoms that he was positive for COVID-19. In the emergency room he was found to have a bilateral pneumonia on chest x-ray and a fever of 101.9 F. He was also noted to have acute respiratory failure with hypoxia requiring supplemental oxygen at 2 L/min via nasal cannula to maintain an adequate oxygen saturation. 01/10/2020. No acute events overnight. Patient comfortably sitting in bed no apparent distress, reporting getting winded easily upon exertion, denies any fever, chills, nausea, vomiting, diarrhea, constipation or any urinary symptoms. Alert and oriented, cooperative with physical examination, answers question appropriately, p.o. tolerant, having normal bowel and bladder movements. Reason For Visit: BILATERAL PNEUMONIA DUE TO COVID19,ACUTE RESPIRATO Physical Exam Vital Signs: Temp Pulse Resp BP Pulse Ox 97.7 F 55 L 17 118/69 91 L 01/10/20 11:20 01/10/20 11:20 01/10/20 11:20 01/10/20 11:20 01/10/20 11:20 Intake & Output 01/09/20 01/10/20 01/11/20 06:59 06:59 06:59 Intake Total 50 1925 286 Output Total 1 Balance 50 1924 286 Weight 120 kg 115 kg General appearance: PRESENT: no acute distress, obese, well-developed, well- nourished Head exam: PRESENT: atraumatic, normocephalic Respiratory exam: PRESENT: crackles - Bilateral. ABSENT: rales, rhonchi, wheezes Cardiovascular exam: PRESENT: RRR. ABSENT: diastolic murmur, rubs, systolic murmur GI/Abdominal exam: PRESENT: normal bowel sounds, soft. ABSENT: distended, guarding, mass, organolmegaly, rebound, tenderness Neurological exam: PRESENT: alert, awake, oriented to person, oriented to place, oriented to time, oriented to situation, CN II-XII grossly intact. ABSENT: motor sensory deficit Results Laboratory Results: 01/10/20 04:47 01/10/20 04:47 01/10/20 01/10/20 04:47 04:47 WBC 11.9 H RBC 5.32 Hgb 16.4 Hct 48.3 MCV 91 MCH 30.8 MCHC 33.9 RDW 13.6 Plt Count 186 Sodium 134.5 L Potassium 3.3 L Chloride 101 Carbon Dioxide 26 Anion Gap 8 BUN 30 H Creatinine 1.22 Est GFR ( Amer) > 60 Glucose 179 H Calcium 8.8 01/08/20 01/10/20 22:28 09:16 Troponin I 0.038 0.015 Impressions: Chest X-Ray 01/08/20 21:47 IMPRESSION: Patchy bilateral multifocal pneumonia. Assessment and Plan - Diagnosis (1) Pneumonia due to COVID-19 virus Is this a current diagnosis for this admission?: Yes Plan: Patient was treated for COVID-19 as outpatient by PCP. As per patient result was positive. Still complaining of generalized fatigue and getting easily winded upon exertion. SPO2 WNL on 2 L nasal cannula. Afebrile. Mild leukocytosis. D-dimer 1.11. Day #2 IV antibiotics. Day 2 IV ceftriaxone. Day 2 therapeutic enoxaparin. Day 2 IV Decadron. Cultures negative so far. Continue IV antibiotics. Continue IV steroids. Continue supplemental oxygen. Continue duo nebs. (2) Acute respiratory failure with hypoxia Is this a current diagnosis for this admission?: Yes Plan: Due to problem #1. SPO2 WNL on 2 L nasal cannula. Plan of care as above. (3) Hyperlipidemia Qualifiers: Hyperlipidemia type: unspecified Qualified Code(s): E78.5 - Hyperlipidemia, unspecified Is this a current diagnosis for this admission?: Yes Plan: Diet and lifestyle modification recommended. Continue statins. Outpatient PCP follow-up. (4) Hypertension Qualifiers: Hypertension type: unspecified Qualified Code(s): I10 - Essential (primary) hypertension Is this a current diagnosis for this admission?: Yes Plan: Euvolemic. Normotensive. Resume home meds. Adjust meds as needed. PRN IV hydralazine. (5) Status post kidney transplant Is this a current diagnosis for this admission?: Yes Plan: History of polycystic kidney disease. Status post renal transplant 2016 live donor. On chronic low-dose steroids, mycophenolate mofetil, tacrolimus. Electrolytes WNL. Euvolemic. Resume home meds. Optimize BP and diabetic control. Avoid nephrotoxic meds. Outpatient PCP and nephrology follow-up. (6) Immunosuppressed status Is this a current diagnosis for this admission?: Yes Plan: Resume home meds. Outpatient PCP of neurology follow-up. (7) Type 2 diabetes mellitus with morbid obesity Is this a current diagnosis for this admission?: Yes Plan: Controlled. Hemoglobin A1c 7.2. Diabetic diet, basal, sliding scale and correctional insulin. Hypoglycemia protocol. Accu-Chek. Adjust doses as needed. Resume home meds upon discharge. (8) Elevated troponin Is this a current diagnosis for this admission?: Yes Plan: Denies any anginal symptoms. Likely due to demand mismatch in the setting of CKD. EKG positive for left anterior fascicular block. Chronic. No acute changes. Admit to telemetry, trend troponins, antiplatelets, ARB, beta-blockers, statins. - Plan Summary Summary: Patient is admitted to a medical bed on the [address], where he will receive routine supportive and symptomatic cares. He will receive supplemental oxygen via nasal cannula as needed to maintain an adequate oxygen saturation. The addition of non-invasive airway pressure support devices for maintenance of an adequate oxygen saturation will be employed as needed. He will be treated with IV antibiotics utilizing azithromycin and Rocephin. He will receive Lovenox 1 mg/kg every 12 hours subcutaneously. He will receive Ativan 1 mg IV every 4 hours as needed for anxiety or restlessness. He will receive Dilaudid 0.5 to 2 mg IV every 3 hours as needed for pain. CBCs, metabolic profiles and additional laboratory and/or radiographic evaluations will be obtained as appropriate. Patient will be on a cardiac and diabetic restricted diet. Before meals and at bedtime Accu-Cheks will be obtained and sliding scale insulin will be used for hyperglycemia with a hypoglycemic protocol in place. Patient's usual medications will be resumed, where appropriate, once his medication list has been verified and reconciled. - Time Time Spent with patient: 35 or more minutes Medications reviewed and adjusted accordingly: Yes Anticipated Discharge Disposition: Home, Self Care Anticipated Discharge: within 72 hours
[2020-01-10] MEDS ORDERED: IPRATROPIUM/ALBUTEROL 0.5-2.5 MG/3 ML AMPUL NEB PRN (14:04)
[2020-01-10] MEDS: IPRATROPIUM/ALBUTEROL 0.5-2.5 MG/3 ML AMPUL NEB SCH (16:29)
[2020-01-10] MEDS: FUROSEMIDE 40 MG TABLET PO SCH (17:41)
--- NOTE | 2020-01-10 21:40 | EKG REPORT ---
SEVERITY:- ABNORMAL ECG - SINUS RHYTHM LEFT ANTERIOR FASCICULAR BLOCK ABNRM R PROG, CONSIDER ASMI OR LEAD PLACEMENT : Confirmed by: Robinson Mendez 10-Jan-2020 21:40:02
[2020-01-10] MEDS: ATORVASTATIN CALCIUM 10 MG TABLET PO SCH (22:20)
[2020-01-10] MEDS: MELATONIN 5 MG TABLET PO PRN (22:21)
[2020-01-11] MEDS: IPRATROPIUM/ALBUTEROL 0.5-2.5 MG/3 ML AMPUL NEB SCH ×4 (00:29→23:40)
[2020-01-11 05:39] LABS: HEMATOCRIT 50.7 % (37.9-51.0); MEAN CORPUSCULAR HEMOGLOBIN 30.4 pg (27.0-33.4); MEAN CORPUSCULAR HGB CONC 33.5 g/dL (32.0-36.0); MEAN CORPUSCULAR VOLUME 91 fl (80-97); PLATELET COUNT 223 10^3/uL (150-450); RED BLOOD COUNT 5.58 10^6/uL (4.35-5.55); RED CELL DISTRIBUTION WIDTH 13.9 % (11.5-14.0); WHITE BLOOD COUNT 15.1 10^3/uL (4.0-10.5)
[2020-01-11 06:01] LABS: ANION GAP 9 (5-19); BLOOD UREA NITROGEN 32 mg/dL (7-20); CARBON DIOXIDE 27 mmol/L (22-30); CHLORIDE 100 mmol/L (98-107); GLUCOSE 177 mg/dL (75-110); POTASSIUM 3.6 mmol/L (3.6-5.0)
[2020-01-11] MEDS ORDERED: NORMAL SALINE 1000 ML 1,000 ML IV PRN (06:55)
[2020-01-11] MEDS: INSULIN LISPRO 100 UNIT/ML 3 ML VIAL SUBCUT SCH ×4 (08:18→22:02)
--- NOTE | 2020-01-11 10:12 | PDOC PROGRESS REPORT ---
Subjective Progress Note for:: 01/11/20 Subjective:: KIMBERLEY HASSAN is a 49 past medical history of end-stage renal disease status post renal transplant 2016 on chronic immunosuppressive therapy, due to ED complaining of 5 days of dyspnea. He was evaluated by his primary care provider 3 days ago and was informed yesterday prior to the accelerated progression of his symptoms that he was positive for COVID-19. In the emergency room he was found to have a bilateral pneumonia on chest x-ray and a fever of 101.9 F. He was also noted to have acute respiratory failure with hypoxia requiring supplemental oxygen at 2 L/min via nasal cannula to maintain an adequate oxygen saturation. 01/10/2020. No acute events overnight. Patient comfortably sitting in bed no apparent distress, reporting getting winded easily upon exertion, denies any fever, chills, nausea, vomiting, diarrhea, constipation or any urinary symptoms. Alert and oriented, cooperative with physical examination, answers question appropriately, p.o. tolerant, having normal bowel and bladder movements. 01/11/2020. No acute events overnight. Patient comfortably sitting up in distress, reporting mild improvement of respiratory symptoms, denies any fever, chills, nausea, vomiting, diarrhea, constipation or any urinary symptoms. P.o. tolerant. Having normal bowel and bladder movements. Reason For Visit: BILATERAL PNEUMONIA DUE TO COVID19,ACUTE RESPIRATO Physical Exam Vital Signs: Temp Pulse Resp BP Pulse Ox 98.1 F 61 19 138/79 H 94 01/11/20 07:26 01/11/20 07:26 01/11/20 07:26 01/11/20 07:26 01/11/20 07:26 Intake & Output 01/10/20 01/11/20 01/12/20 06:59 06:59 06:59 Intake Total 1925 1006 Output Total 1 Balance 4 1006 Weight 115 kg 114.8 kg General appearance: PRESENT: no acute distress, well-developed, well-nourished Head exam: PRESENT: atraumatic, normocephalic Respiratory exam: PRESENT: clear to auscultation darinel, decreased breath sounds - Right lower lung. ABSENT: rales, rhonchi, wheezes GI/Abdominal exam: PRESENT: normal bowel sounds, soft. ABSENT: distended, guarding, mass, organolmegaly, rebound, tenderness Extremities exam: PRESENT: full ROM. ABSENT: calf tenderness, clubbing, pedal edema Neurological exam: PRESENT: alert, awake, oriented to person, oriented to place, oriented to time, oriented to situation, CN II-XII grossly intact. ABSENT: motor sensory deficit Results Laboratory Results: 01/11/20 05:02 01/11/20 05:02 01/11/20 01/11/20 05:02 05:02 WBC 15.1 H RBC 5.58 H Hgb 17.0 Hct 50.7 MCV 91 MCH 30.4 MCHC 33.5 RDW 13.9 Plt Count 223 Sodium 135.8 L Potassium 3.6 Chloride 100 Carbon Dioxide 27 Anion Gap 9 BUN 32 H Creatinine 1.28 H Est GFR ( Amer) > 60 Glucose 177 H Calcium 9.0 01/08/20 01/10/20 01/10/20 22:28 09:16 18:35 Troponin I 0.038 0.015 < 0.012 Impressions: Chest X-Ray 01/08/20 21:47 IMPRESSION: Patchy bilateral multifocal pneumonia. Assessment and Plan - Diagnosis (1) Pneumonia due to COVID-19 virus Is this a current diagnosis for this admission?: Yes Plan: Patient was treated for COVID-19 as outpatient by PCP. As per patient result was positive. Still complaining of generalized fatigue and getting easily winded upon exertion. SPO2 WNL on 2 L nasal cannula. Afebrile. Mild leukocytosis. D-dimer 1.11. Day 3 IV antibiotics. Day 3 IV ceftriaxone. Day 3 therapeutic enoxaparin. Day 3 IV Decadron. Cultures negative so far. Continue IV antibiotics. Continue IV steroids. Continue supplemental oxygen. Continue duo nebs. (2) Acute respiratory failure with hypoxia Is this a current diagnosis for this admission?: Yes Plan: Due to problem #1. SPO2 WNL on 2 L nasal cannula. Plan of care as above. (3) Hyperlipidemia Qualifiers: Hyperlipidemia type: unspecified Qualified Code(s): E78.5 - Hyperlipidemia, unspecified Is this a current diagnosis for this admission?: Yes Plan: Diet and lifestyle modification recommended. Continue statins. Outpatient PCP follow-up. (4) Hypertension Qualifiers: Hypertension type: unspecified Qualified Code(s): I10 - Essential (primary) hypertension Is this a current diagnosis for this admission?: Yes Plan: Euvolemic. Normotensive. Resume home meds. Adjust meds as needed. PRN IV hydralazine. (5) Status post kidney transplant Is this a current diagnosis for this admission?: Yes Plan: History of polycystic kidney disease. Status post renal transplant 2016 live donor. On chronic low-dose steroids, mycophenolate mofetil, tacrolimus. Electrolytes WNL. Euvolemic. Resume home meds. Optimize BP and diabetic control. Avoid nephrotoxic meds. Outpatient PCP and nephrology follow-up. (6) Immunosuppressed status Is this a current diagnosis for this admission?: Yes Plan: Resume home meds. Outpatient PCP of neurology follow-up. (7) Type 2 diabetes mellitus with morbid obesity Is this a current diagnosis for this admission?: Yes Plan: Controlled. Hemoglobin A1c 7.2. Diabetic diet, basal, sliding scale and correctional insulin. Hypoglycemia protocol. Accu-Chek. Adjust doses as needed. Resume home meds upon discharge. (8) Elevated troponin Is this a current diagnosis for this admission?: Yes Plan: Denies any anginal symptoms. Likely due to demand mismatch in the setting of CKD. Troponins 0.038, 0.015, 0.012 respectively EKG positive for left anterior fascicular block. Chronic. No acute changes. Continue trend troponins, antiplatelets, ARB, beta-blockers, statins. - Plan Summary Summary: Patient is admitted to a medical bed on the [place] [address] care unit, where he will r eceive routine supportive and symptomatic cares. He will receive supplemental oxygen via nasal cannula as needed to maintain an adequate oxygen saturation. The addition of non-invasive airway pressure support devices for maintenance of an adequate oxygen saturation will be employed as needed. He will be treated with IV antibiotics utilizing azithromycin and Rocephin. He will receive Lovenox 1 mg/kg every 12 hours subcutaneously. He will receive Ativan 1 mg IV every 4 hours as needed for anxiety or restlessness. He will receive Dilaudid 0.5 to 2 mg IV every 3 hours as needed for pain. CBCs, metabolic profiles and additional laboratory and/or radiographic evaluations will be obtained as appropriate. Patient will be on a cardiac and diabetic restricted diet. Before meals and at bedtime Accu-Cheks will be obtained and sliding scale insulin will be used for hyperglycemia with a hypoglycemic protocol in place. Patient's usual medications will be resumed, where appropriate, once his medication list has been verified and reconciled. - Time Time Spent with patient: 25-34 minutes Medications reviewed and adjusted accordingly: Yes Anticipated Discharge Disposition: Home, Self Care Anticipated Discharge: within 48 hours
[2020-01-11] MEDS: ENOXAPARIN SODIUM INJ 120 MG/0.8 ML DISP.SYRIN SUBCUT SCH ×2 (10:23→22:01)
[2020-01-11] MEDS: AMLODIPINE BESYLATE 5 MG TABLET PO SCH (10:23)
[2020-01-11] MEDS: FAMOTIDINE 20 MG TABLET PO SCH ×2 (10:23→22:01)
[2020-01-11] MEDS: ZINC SULFATE 220 MG CAPSULE PO SCH (10:23)
[2020-01-11] MEDS: CEFTRIAXONE 1 GM/D5W RTU 1 GM/50 ML RTUPB IV SCH (10:24)
[2020-01-11] MEDS: LABETALOL HCL 200 MG TABLET PO SCH ×2 (10:24→22:02)
[2020-01-11] MEDS: GUAIFENESIN 600 MG TABLET.SA PO SCH ×2 (10:24→22:02)
[2020-01-11] MEDS: MULTIVITAMIN TABLET PO SCH (10:24)
[2020-01-11] MEDS: DEXAMETHASONE SOD PHOS INJ 10 MG/1 ML VIAL IV SCH (10:24)
[2020-01-11] MEDS: LOSARTAN POTASSIUM 50 MG TABLET PO SCH (10:24)
[2020-01-11] MEDS: MELATONIN 5 MG TABLET PO PRN (22:01)
[2020-01-11] MEDS: ATORVASTATIN CALCIUM 10 MG TABLET PO SCH (22:01)
[2020-01-12 05:31] LABS: ABSOLUTE LYMPHOCYTES (AUTO) 0.7 10^3/uL (0.5-4.7); ABSOLUTE MONOCYTES (AUTO) 0.6 10^3/uL (0.1-1.4); ABSOLUTE NEUT (AUTO) 11.8 10^3/uL (1.7-8.2); BASOPHILS % (AUTO) 0.1 % (0-2); HEMATOCRIT 47.4 % (37.9-51.0); HEMOGLOBIN 15.9 g/dL (13.5-17.0); LYMPHOCYTES % (AUTO) 5.3 % (13-45); MEAN CORPUSCULAR HEMOGLOBIN 30.5 pg (27.0-33.4); MEAN CORPUSCULAR HGB CONC 33.5 g/dL (32.0-36.0); MEAN CORPUSCULAR VOLUME 91 fl (80-97); MONOCYTES % (AUTO) 4.8 % (3-13); PLATELET COUNT 248 10^3/uL (150-450); RED BLOOD COUNT 5.21 10^6/uL (4.35-5.55); SEGMENTED NEUTROPHILS % (AUTO) 89.8 % (42-78); TOTAL CELLS COUNTED % (AUTO) 100 %; WHITE BLOOD COUNT 13.1 10^3/uL (4.0-10.5)
[2020-01-12 05:49] LABS: ANION GAP 9 (5-19); BLOOD UREA NITROGEN 26 mg/dL (7-20); CALCIUM 8.6 mg/dL (8.4-10.2); CARBON DIOXIDE 26 mmol/L (22-30); CHLORIDE 101 mmol/L (98-107); GLUCOSE 175 mg/dL (75-110); POTASSIUM 3.9 mmol/L (3.6-5.0)
[2020-01-12] MEDS: INSULIN LISPRO 100 UNIT/ML 3 ML VIAL SUBCUT SCH ×4 (08:04→22:06)
[2020-01-12] MEDS: IPRATROPIUM/ALBUTEROL 0.5-2.5 MG/3 ML AMPUL NEB SCH ×2 (08:34→15:37)
[2020-01-12 09:52] LABS: APPEARANCE,URINE CLEAR; BILIRUBIN,URINE NEGATIVE (NEGATIVE); COLOR,URINE YELLOW; GLUCOSE, URINE 150 mg/dL (NEGATIVE); KETONES,URINE NEGATIVE (NEGATIVE); LEUKOCYTE ESTERASE,URINE NEGATIVE (NEGATIVE); NITRITE,URINE NEGATIVE (NEGATIVE); PROTEIN,URINE 30 mg/dL (NEGATIVE); URINE SPECIFIC GRAVITY 1.024; UROBILINOGEN,URINE NEGATIVE mg/dL (<2.0)
--- NOTE | 2020-01-12 10:29 | PDOC PROGRESS REPORT ---
Subjective Progress Note for:: 01/12/20 Subjective:: KIMBERLEY HASSAN is a 49 past medical history of end-stage renal disease status post renal transplant 2016 on chronic immunosuppressive therapy, due to ED complaining of 5 days of dyspnea. He was evaluated by his primary care provider 3 days ago and was informed yesterday prior to the accelerated progression of his symptoms that he was positive for COVID-19. In the emergency room he was found to have a bilateral pneumonia on chest x-ray and a fever of 101.9 F. He was also noted to have acute respiratory failure with hypoxia requiring supplemental oxygen at 2 L/min via nasal cannula to maintain an adequate oxygen saturation. 01/10/2020. No acute events overnight. Patient comfortably sitting in bed no apparent distress, reporting getting winded easily upon exertion, denies any fever, chills, nausea, vomiting, diarrhea, constipation or any urinary symptoms. Alert and oriented, cooperative with physical examination, answers question appropriately, p.o. tolerant, having normal bowel and bladder movements. 01/11/2020. No acute events overnight. Patient comfortably sitting up in distress, reporting mild improvement of respiratory symptoms, denies any fever, chills, nausea, vomiting, diarrhea, constipation or any urinary symptoms. P.o. tolerant. Having normal bowel and bladder movements. 01/12/2020. No acute events overnight. Patient reporting mild improvement of respiratory symptoms, still getting short of breath when he tries ambulate, p.o. tolerant, having normal bowel and bladder movement, denies any fever, chills, nausea, vomiting, diarrhea, constipation or any urinary symptoms. Reason For Visit: BILATERAL PNEUMONIA DUE TO COVID19,ACUTE RESPIRATO Physical Exam Vital Signs: Temp Pulse Resp BP Pulse Ox 97.8 F 49 L 17 150/86 H 94 01/12/20 07:38 01/12/20 07:38 01/12/20 07:38 01/12/20 07:38 01/12/20 07:38 Intake & Output 01/11/20 01/12/20 01/13/20 06:59 06:59 06:59 Intake Total 1006 1530 Output Total 325 Balance 1006 1205 Weight 114.8 kg 114.8 kg General appearance: PRESENT: no acute distress, obese, well-developed, well- nourished Head exam: PRESENT: atraumatic, normocephalic Respiratory exam: PRESENT: clear to auscultation darinel. ABSENT: rales, rhonchi, wheezes GI/Abdominal exam: PRESENT: normal bowel sounds, soft. ABSENT: distended, guarding, mass, organolmegaly, rebound, tenderness Neurological exam: PRESENT: alert, awake, oriented to person, oriented to place, oriented to time, oriented to situation, CN II-XII grossly intact. ABSENT: motor sensory deficit Results Laboratory Results: 01/12/20 04:51 01/12/20 04:51 01/12/20 01/12/20 01/12/20 04:51 04:51 07:30 WBC 13.1 H RBC 5.21 Hgb 15.9 Hct 47.4 MCV 91 MCH 30.5 MCHC 33.5 RDW 14.0 Plt Count 248 Seg Neutrophils % 89.8 H Sodium 135.8 L Potassium 3.9 Chloride 101 Carbon Dioxide 26 Anion Gap 9 BUN 26 H Creatinine 1.02 Est GFR ( Amer) > 60 Glucose 175 H Calcium 8.6 Urine Color YELLOW Urine Appearance CLEAR Urine pH 6.0 Ur Specific [place] 1.024 Urine Protein 30 H Urine Glucose (UA) 150 H Urine Ketones NEGATIVE Urine Blood NEGATIVE Urine Nitrite NEGATIVE Ur Leukocyte Esterase NEGATIVE Urine WBC (Auto) 1 Urine RBC (Auto) 0 01/08/20 01/10/20 01/10/20 22:28 09:16 18:35 Troponin I 0.038 0.015 < 0.012 Impressions: Chest X-Ray 01/08/20 21:47 IMPRESSION: Patchy bilateral multifocal pneumonia. Assessment and Plan - Diagnosis (1) Pneumonia due to COVID-19 virus Is this a current diagnosis for this admission?: Yes Plan: Patient was treated for COVID-19 as outpatient by PCP. As per patient result was positive. Still complaining of generalized fatigue and getting easily winded upon exertion. SPO2 WNL on 2 L nasal cannula. Afebrile. Mild leukocytosis. D-dimer 1.11. Day 4 IV antibiotics. Day 4 IV ceftriaxone. Day 4 therapeutic enoxaparin. Day 4 IV Decadron. Cultures negative so far. Continue IV antibiotics. Continue IV steroids. Continue supplemental oxygen. Continue duo nebs. (2) Acute respiratory failure with hypoxia Is this a current diagnosis for this admission?: Yes Plan: Due to problem #1. SPO2 WNL on 2 L nasal cannula. Plan of care as above. (3) Hyperlipidemia Qualifiers: Hyperlipidemia type: unspecified Qualified Code(s): E78.5 - Hyperlipidemia, unspecified Is this a current diagnosis for this admission?: Yes Plan: Diet and lifestyle modification recommended. Continue statins. Outpatient PCP follow-up. (4) Hypertension Qualifiers: Hypertension type: unspecified Qualified Code(s): I10 - Essential (primary) hypertension Is this a current diagnosis for this admission?: Yes Plan: Euvolemic. Normotensive. Resume home meds. Adjust meds as needed. PRN IV hydralazine. (5) Status post kidney transplant Is this a current diagnosis for this admission?: Yes Plan: History of polycystic kidney disease. Status post renal transplant 2016 live donor. On chronic low-dose steroids, mycophenolate mofetil, tacrolimus. Electrolytes WNL. Euvolemic. Resume home meds. Optimize BP and diabetic control. Avoid nephrotoxic meds. Outpatient PCP and nephrology follow-up. (6) Immunosuppressed status Is this a current diagnosis for this admission?: Yes Plan: Resume home meds. Outpatient PCP of neurology follow-up. (7) Type 2 diabetes mellitus with morbid obesity Is this a current diagnosis for this admission?: Yes Plan: Controlled. Hemoglobin A1c 7.2. Diabetic diet, basal, sliding scale and correctional insulin. Hypoglycemia protocol. Accu-Chek. Adjust doses as needed. Resume home meds upon discharge. (8) Elevated troponin Is this a current diagnosis for this admission?: Yes Plan: Denies any anginal symptoms. Likely due to demand mismatch in the setting of CKD. Troponins 0.038, 0.015, 0.012 respectively EKG positive for left anterior fascicular block. Chronic. No acute changes. Continue trend troponins, antiplatelets, ARB, beta-blockers, statins. - Plan Summary Summary: Patient is admitted to a medical bed on the [address], where he will receive routine supportive and symptomatic cares. He will receive supplemental oxygen via nasal cannula as needed to maintain an adequate oxygen saturation. The addition of non-invasive airway pressure support devices for maintenance of an adequate oxygen saturation will be employed as needed. He will be treated with IV antibiotics utilizing azithromycin and Rocephin. He will receive Lovenox 1 mg/kg every 12 hours subcutaneously. He will receive Ativan 1 mg IV every 4 hours as needed for anxiety or restlessness. He will receive Dilaudid 0.5 to 2 mg IV every 3 hours as needed for pain. CBCs, metabolic profiles and additional laboratory and/or radiographic evaluations will be obtained as appropriate. Patient will be on a cardiac and diabetic restricted diet. Before meals and at bedtime Accu-Cheks will be obtained and sliding scale insulin will be used for hyperglycemia with a hypoglycemic protocol in place. Patient's usual medications will be resumed, where appropriate, once his medication list has been verified and reconciled. - Time Time Spent with patient: 15-24 minutes Medications reviewed and adjusted accordingly: Yes Anticipated Discharge Disposition: Home, Self Care Anticipated Discharge: within 36 hours
[2020-01-12] MEDS: CEFTRIAXONE 1 GM/D5W RTU 1 GM/50 ML RTUPB IV SCH (10:38)
[2020-01-12] MEDS: ENOXAPARIN SODIUM INJ 120 MG/0.8 ML DISP.SYRIN SUBCUT SCH ×2 (10:39→22:06)
[2020-01-12] MEDS: ZINC SULFATE 220 MG CAPSULE PO SCH (10:39)
[2020-01-12] MEDS: DEXAMETHASONE SOD PHOS INJ 10 MG/1 ML VIAL IV SCH (10:39)
[2020-01-12] MEDS: FUROSEMIDE 40 MG TABLET PO SCH ×2 (10:39→17:18)
[2020-01-12] MEDS: AMLODIPINE BESYLATE 5 MG TABLET PO SCH (10:39)
[2020-01-12] MEDS: LOSARTAN POTASSIUM 50 MG TABLET PO SCH (10:39)
[2020-01-12] MEDS: FAMOTIDINE 20 MG TABLET PO SCH ×2 (10:39→22:05)
[2020-01-12] MEDS: GUAIFENESIN 600 MG TABLET.SA PO SCH ×2 (10:39→22:05)
[2020-01-12] MEDS: MULTIVITAMIN TABLET PO SCH (10:39)
[2020-01-12] MEDS: LABETALOL HCL 200 MG TABLET PO SCH ×2 (14:22→22:05)
[2020-01-12] MEDS: MELATONIN 5 MG TABLET PO PRN (22:05)
[2020-01-12] MEDS: ATORVASTATIN CALCIUM 10 MG TABLET PO SCH (22:07)
[2020-01-13] MEDS: IPRATROPIUM/ALBUTEROL 0.5-2.5 MG/3 ML AMPUL NEB SCH ×3 (01:42→15:56)
[2020-01-13 05:29] LABS: HEMATOCRIT 48.1 % (37.9-51.0); HEMOGLOBIN 16.4 g/dL (13.5-17.0); MEAN CORPUSCULAR HEMOGLOBIN 30.7 pg (27.0-33.4); MEAN CORPUSCULAR VOLUME 90 fl (80-97); PLATELET COUNT 259 10^3/uL (150-450); RED BLOOD COUNT 5.33 10^6/uL (4.35-5.55); RED CELL DISTRIBUTION WIDTH 13.6 % (11.5-14.0); WHITE BLOOD COUNT 10.6 10^3/uL (4.0-10.5)
[2020-01-13 05:57] LABS: ANION GAP 7 (5-19); BLOOD UREA NITROGEN 25 mg/dL (7-20); CALCIUM 8.9 mg/dL (8.4-10.2); CARBON DIOXIDE 26 mmol/L (22-30); CHLORIDE 102 mmol/L (98-107); GLUCOSE 214 mg/dL (75-110); POTASSIUM 4.1 mmol/L (3.6-5.0)
[2020-01-13] MEDS: INSULIN LISPRO 100 UNIT/ML 3 ML VIAL SUBCUT SCH ×4 (08:36→22:15)
[2020-01-13] MEDS: ENOXAPARIN SODIUM INJ 120 MG/0.8 ML DISP.SYRIN SUBCUT SCH ×2 (09:50→22:15)
[2020-01-13] MEDS: CEFTRIAXONE 1 GM/D5W RTU 1 GM/50 ML RTUPB IV SCH (09:51)
[2020-01-13] MEDS: FUROSEMIDE 40 MG TABLET PO SCH ×2 (09:52→17:23)
[2020-01-13] MEDS: LOSARTAN POTASSIUM 50 MG TABLET PO SCH (09:52)
[2020-01-13] MEDS: MULTIVITAMIN TABLET PO SCH (09:52)
[2020-01-13] MEDS: ZINC SULFATE 220 MG CAPSULE PO SCH (09:52)
[2020-01-13] MEDS: GUAIFENESIN 600 MG TABLET.SA PO SCH ×2 (09:52→22:15)
[2020-01-13] MEDS: DEXAMETHASONE SOD PHOS INJ 10 MG/1 ML VIAL IV SCH (09:52)
[2020-01-13] MEDS: FAMOTIDINE 20 MG TABLET PO SCH ×2 (09:52→22:15)
[2020-01-13] MEDS: AMLODIPINE BESYLATE 5 MG TABLET PO SCH (09:52)
[2020-01-13] MEDS: LABETALOL HCL 200 MG TABLET PO SCH ×3 (09:53→22:21)
--- NOTE | 2020-01-13 10:31 | PDOC PROGRESS REPORT ---
Subjective Progress Note for:: 01/13/20 Subjective:: 49 past medical history of end-stage renal disease status post renal transplant 2016 on chronic immunosuppressive therapy, due to ED complaining of 5 days of dyspnea. He was evaluated by his primary care provider 3 days ago and was informed yesterday prior to the accelerated progression of his symptoms that he was positive for COVID-19. In the emergency room he was found to have a bilateral pneumonia on chest x-ray and a fever of 101.9 F. He was also noted to have acute respiratory failure with hypoxia requiring supplemental oxygen at 2 L/min via nasal cannula to maintain an adequate oxygen saturation. 01/10/2020. No acute events overnight. Patient comfortably sitting in bed no apparent distress, reporting getting winded easily upon exertion, denies any fever, chills, nausea, vomiting, diarrhea, constipation or any urinary symptoms. Alert and oriented, cooperative with physical examination, answers question appropriately, p.o. tolerant, having normal bowel and bladder movements. 01/11/2020. No acute events overnight. Patient comfortably sitting up in distress, reporting mild improvement of respiratory symptoms, denies any fever, chills, nausea, vomiting, diarrhea, constipation or any urinary symptoms. P.o. tolerant. Having normal bowel and bladder movements. 01/12/2020. No acute events overnight. Patient reporting mild improvement of respiratory symptoms, still getting short of breath when he tries ambulate, p.o. tolerant, having normal bowel and bladder movement, denies any fever, chills, nausea, vomiting, diarrhea, constipation or any urinary symptoms. 01/13/2020-patient is in the bed in mild shortness of breath. Complaining of shortness of breath worsening with minimal activity. Presently on 4 L of oxygen pulse ox 95%. Patient is bradycardic with heart rate is around 49 this morning to hold the labetalol at this time. Patient is receiving IV Rocephin, IV dexamethasone. He is also on a treatment dose of Lovenox. And is to continue the present management for the next several days. Reason For Visit: BILATERAL PNEUMONIA DUE TO COVID19,ACUTE RESPIRATO Physical Exam Vital Signs: Temp Pulse Resp BP Pulse Ox 98.5 F 50 L 16 174/95 H 95 01/13/20 08:21 01/13/20 09:18 01/13/20 09:18 01/13/20 08:21 01/13/20 09:18 Intake & Output 01/12/20 01/13/20 01/14/20 06:59 06:59 06:59 Intake Total 1530 1625 Output Total 325 1295 Balance 1205 330 Weight 114.8 kg 116.9 kg General appearance: PRESENT: mild distress, obese Head exam: PRESENT: atraumatic Eye exam: PRESENT: PERRLA Ear exam: PRESENT: normal external ear exam Mouth exam: PRESENT: neck supple Teeth exam: PRESENT: poor dentation Neck exam: ABSENT: carotid bruit, JVD, lymphadenopathy, thyromegaly Respiratory exam: PRESENT: decreased breath sounds Cardiovascular exam: PRESENT: bradycardia GI/Abdominal exam: PRESENT: normal bowel sounds, soft. ABSENT: distended, guarding, mass, organolmegaly, rebound, tenderness Rectal exam: PRESENT: deferred Extremities exam: PRESENT: full ROM. ABSENT: calf tenderness, clubbing, pedal edema Neurological exam: PRESENT: alert, awake, oriented to person, oriented to place, oriented to time, oriented to situation, CN II-XII grossly intact. ABSENT: motor sensory deficit Psychiatric exam: PRESENT: appropriate affect, normal mood. ABSENT: homicidal ideation, suicidal ideation Results Laboratory Results: 01/13/20 04:43 01/13/20 04:43 01/13/20 01/13/20 04:43 04:43 WBC 10.6 H RBC 5.33 Hgb 16.4 Hct 48.1 MCV 90 MCH 30.7 MCHC 34.0 RDW 13.6 Plt Count 259 Sodium 134.8 L Potassium 4.1 Chloride 102 Carbon Dioxide 26 Anion Gap 7 BUN 25 H Creatinine 0.93 Est GFR ( Amer) > 60 Glucose 214 H Calcium 8.9 01/08/20 01/10/20 01/10/20 22:28 09:16 18:35 Troponin I 0.038 0.015 < 0.012 Impressions: Chest X-Ray 01/08/20 21:47 IMPRESSION: Patchy bilateral multifocal pneumonia. Assessment and Plan - Diagnosis (1) Pneumonia due to COVID-19 virus Is this a current diagnosis for this admission?: Yes Plan: Patient was treated for COVID-19 as outpatient by PCP. As per patient result was positive. Still complaining of generalized fatigue and getting easily winded upon exertion. SPO2 WNL on 2 L nasal cannula. Afebrile. Mild leukocytosis. D-dimer 1.11. Day 4 IV antibiotics. Day 4 IV ceftriaxone. Day 4 therapeutic enoxaparin. Day 4 IV Decadron. Cultures negative so far. Continue IV antibiotics. Continue IV steroids. Continue supplemental oxygen. Continue duo nebs. 01/13/2020-patient is receiving IV dexamethasone 6 mg daily, IV Rocephin, treatment dose of Lovenox. Blood cultures are negative. Pulse ox is 95% 4 L. Plan is to continue the present management at this time. WBC count is 10,600. (2) Acute respiratory failure with hypoxia Is this a current diagnosis for this admission?: Yes Plan: Due to problem #1. SPO2 WNL on 2 L nasal cannula. Plan of care as above. 07/15/2019-pulse ox is 95% 4 L. Acute respiratory failure with hypoxia most li esme secondary to COVID pneumonia. (3) Hypertension Qualifiers: Hypertension type: unspecified Qualified Code(s): I10 - Essential (primary) hypertension Is this a current diagnosis for this admission?: No Plan: Euvolemic. Normotensive. Resume home meds. Adjust meds as needed. PRN IV hydralazine. 01/13/2020-blood pressure today is 162/87. Receiving IV hydralazine on as needed basis. (4) Status post kidney transplant Is this a current diagnosis for this admission?: No Plan: History of polycystic kidney disease. Status post renal transplant 2016 live donor. On chronic low-dose steroids, mycophenolate mofetil, tacrolimus. Electrolytes WNL. Euvolemic. Resume home meds. Optimize BP and diabetic control. Avoid nephrotoxic meds. Outpatient PCP and nephrology follow-up. (5) Type 2 diabetes mellitus with morbid obesity Is this a current diagnosis for this admission?: No Plan: Controlled. Hemoglobin A1c 7.2. Diabetic diet, basal, sliding scale and correctional insulin. Hypoglycemia protocol. Accu-Chek. Adjust doses as needed. Resume home meds upon discharge. 01/13/2020-latest blood sugar is 214. Hemoglobin A1c 7.2. Patient is on insulin sliding scale at this time. Blood sugars are lying little bit high may be secondary to IV dexamethasone. To start him on Lantus 10 units daily. (6) Elevated troponin Is this a current diagnosis for this admission?: Yes Plan: Denies any anginal symptoms. Likely due to demand mismatch in the setting of CKD. Troponins 0.038, 0.015, 0.012 respectively EKG positive for left anterior fascicular block. Chronic. No acute changes. Continue trend troponins, antiplatelets, ARB, beta-blockers, statins. 01/13/2020-patient denies any chest pains this morning. He is on treatment dose of Lovenox. He is also on losartan, atorvastatin and beta-blockers. plan is to continue the present management. - Plan Summary Summary: Patient is admitted to a medical bed on the [address], where he will receive routine supportive and symptomatic cares. He will receive supplemental oxygen via nasal cannula as needed to maintain an adequate oxygen saturation. The addition of non-invasive airway pressure support devices for maintenance of an adequate oxygen saturation will be employed as needed. He will be treated with IV antibiotics utilizing azithromycin and Rocephin. He will receive Lovenox 1 mg/kg every 12 hours subcutaneously. He will receive Ativan 1 mg IV every 4 hours as needed for anxiety or restlessness. He will receive Dilaudid 0.5 to 2 mg IV every 3 hours as needed for pain. CBCs, metabolic profiles and additional laboratory and/or radiographic evaluations will be obtained as appropriate. Patient will be on a cardiac and diabetic restricted diet. Before meals and at bedtime Accu-Cheks will be obtained and sliding scale insulin will be used for hyperglycemia with a hypoglycemic protocol in place. Patient's usual medications will be resumed, where appropriate, once his medication list has been verified and reconciled. - Time Anticipated Discharge Disposition: Home, Self Care Anticipated Discharge: within 72 hours
[2020-01-13] MEDS: MELATONIN 5 MG TABLET PO PRN (22:15)
[2020-01-13] MEDS: ATORVASTATIN CALCIUM 10 MG TABLET PO SCH (22:15)
[2020-01-14] MEDS: IPRATROPIUM/ALBUTEROL 0.5-2.5 MG/3 ML AMPUL NEB SCH ×3 (03:34→15:46)
[2020-01-14 05:34] LABS: HEMATOCRIT 49.9 % (37.9-51.0); HEMOGLOBIN 16.6 g/dL (13.5-17.0); MEAN CORPUSCULAR HEMOGLOBIN 30.3 pg (27.0-33.4); MEAN CORPUSCULAR HGB CONC 33.4 g/dL (32.0-36.0); MEAN CORPUSCULAR VOLUME 91 fl (80-97); PLATELET COUNT 284 10^3/uL (150-450); RED BLOOD COUNT 5.49 10^6/uL (4.35-5.55); RED CELL DISTRIBUTION WIDTH 13.5 % (11.5-14.0); WHITE BLOOD COUNT 12.3 10^3/uL (4.0-10.5)
[2020-01-14 06:29] LABS: APPEARANCE,URINE SLIGHTLY-CLOUDY; BILIRUBIN,URINE NEGATIVE (NEGATIVE); COLOR,URINE YELLOW; GLUCOSE, URINE >=500 mg/dL (NEGATIVE); KETONES,URINE NEGATIVE (NEGATIVE); LEUKOCYTE ESTERASE,URINE NEGATIVE (NEGATIVE); NITRITE,URINE NEGATIVE (NEGATIVE); PROTEIN,URINE NEGATIVE (NEGATIVE); UROBILINOGEN,URINE NEGATIVE mg/dL (<2.0)
[2020-01-14] MEDS: LABETALOL HCL 200 MG TABLET PO SCH ×2 (09:15→21:48)
[2020-01-14] MEDS: FUROSEMIDE 40 MG TABLET PO SCH ×2 (09:18→17:12)
[2020-01-14] MEDS: FAMOTIDINE 20 MG TABLET PO SCH ×2 (09:18→21:46)
[2020-01-14] MEDS: AMLODIPINE BESYLATE 5 MG TABLET PO SCH (09:18)
[2020-01-14] MEDS: MULTIVITAMIN TABLET PO SCH (09:18)
[2020-01-14] MEDS: LOSARTAN POTASSIUM 50 MG TABLET PO SCH (09:18)
[2020-01-14] MEDS: GUAIFENESIN 600 MG TABLET.SA PO SCH ×2 (09:18→21:46)
[2020-01-14] MEDS: ZINC SULFATE 220 MG CAPSULE PO SCH (09:18)
[2020-01-14] MEDS: DEXAMETHASONE SOD PHOS INJ 10 MG/1 ML VIAL IV SCH (09:19)
[2020-01-14] MEDS: CEFTRIAXONE 1 GM/D5W RTU 1 GM/50 ML RTUPB IV SCH (09:19)
[2020-01-14] MEDS: INSULIN LISPRO 100 UNIT/ML 3 ML VIAL SUBCUT SCH ×4 (09:19→21:46)
[2020-01-14] MEDS: ENOXAPARIN SODIUM INJ 120 MG/0.8 ML DISP.SYRIN SUBCUT SCH ×2 (09:19→21:47)
--- NOTE | 2020-01-14 17:15 | PDOC PROGRESS REPORT ---
Subjective Progress Note for:: 01/14/20 Subjective:: The patient reports feeling slightly better. He is on nasal cannula oxygen. He still has increased shortness of breath if he walks to the bathroom. He has been afebrile. Reason For Visit: BILATERAL PNEUMONIA DUE TO COVID19,ACUTE RESPIRATO Physical Exam Vital Signs: Temp Pulse Resp BP Pulse Ox 98.3 F 45 L 16 151/89 H 94 01/14/20 08:16 01/14/20 15:46 01/14/20 15:46 01/14/20 08:16 01/14/20 15:46 Intake & Output 01/13/20 01/14/20 01/15/20 06:59 06:59 06:59 Intake Total 1625 1335 290 Output Total 1295 1725 Balance 330 -390 290 Weight 116.9 kg 114.8 kg General appearance: PRESENT: no acute distress, cooperative, well-developed Head exam: PRESENT: atraumatic, normocephalic Eye exam: PRESENT: conjunctiva pink. ABSENT: periorbital swelling, scleral ic terus Ear exam: PRESENT: normal external ear exam. ABSENT: bleeding, drainage Mouth exam: PRESENT: moist, tongue midline Respiratory exam: PRESENT: clear to auscultation darinel, symmetrical, unlabored. ABSENT: accessory muscle use, rales, rhonchi, tachypnea, wheezes Cardiovascular exam: PRESENT: RRR, +S1, +S2. ABSENT: bradycardia, irregular rhythm, tachycardia GI/Abdominal exam: PRESENT: normal bowel sounds, soft. ABSENT: distended, guarding, tenderness Rectal exam: PRESENT: deferred Gentrourinary exam: ABSENT: indwelling catheter Extremities exam: ABSENT: pedal edema Musculoskeletal exam: PRESENT: ambulatory, full ROM, normal inspection. ABSENT: deformity, dislocation Neurological exam: PRESENT: alert, awake, oriented to person, oriented to place, oriented to time, oriented to situation, CN II-XII grossly intact. ABSENT: altered, motor sensory deficit Psychiatric exam: PRESENT: appropriate affect. ABSENT: agitated, anxious Focused psych exam: ABSENT: delusional, paranoid, restlessness Skin exam: PRESENT: dry, warm, other - Ecchymotic area on abdomen likely from subcutaneous injection. ABSENT: rash Results Laboratory Results: 01/14/20 04:51 01/13/20 04:43 01/14/20 01/14/20 04:51 06:15 WBC 12.3 H RBC 5.49 Hgb 16.6 Hct 49.9 MCV 91 MCH 30.3 MCHC 33.4 RDW 13.5 Plt Count 284 Urine Color YELLOW Urine Appearance SLIGHTLY-CLOUDY Urine pH 6.0 Ur Specific [place] 1.020 Urine Protein NEGATIVE Urine Glucose (UA) >=500 H Urine Ketones NEGATIVE Urine Blood NEGATIVE Urine Nitrite NEGATIVE Ur Leukocyte Esterase NEGATIVE Urine WBC (Auto) 0 Urine RBC (Auto) 0 01/09/20 00:43 Blood Blood Culture - Final NO GROWTH IN 5 DAYS 01/08/20 22:28 Blood Blood Culture - Final NO GROWTH IN 5 DAYS 01/08/20 01/10/20 01/10/20 22:28 09:16 18:35 Troponin I 0.038 0.015 < 0.012 Impressions: Chest X-Ray 01/08/20 21:47 IMPRESSION: Patchy bilateral multifocal pneumonia. Assessment and Plan - Diagnosis (1) Pneumonia due to COVID-19 virus Is this a current diagnosis for this admission?: Yes Plan: Patient was treated for COVID-19 as outpatient by PCP. As per patient result was positive. Still complaining of generalized fatigue and getting easily winded upon exertion. SPO2 WNL on 2 L nasal cannula. Afebrile. Mild leukocytosis. D-dimer 1.11. Day 4 IV antibiotics. Day 4 IV ceftriaxone. Day 4 therapeutic enoxaparin. Day 4 IV Decadron. Cultures negative so far. Continue IV antibiotics. Continue IV steroids. Continue supplemental oxygen. Continue duo nebs. 01/13/2020-patient is receiving IV dexamethasone 6 mg daily, IV Rocephin, treatment dose of Lovenox. Blood cultures are negative. Pulse ox is 95% 4 L. Plan is to continue the present management at this time. WBC count is 10,600. 01/14/2020-patient had refused Decadron initially. He was taking his 5 mg of prednisone for immunosuppression. I told him the Decadron was many times stronger. His white blood cell count did go up slightly but this could be the steroids. Oxygen saturation has been mid 90s on 3 L nasal cannula. The patient continues on Rocephin and has finished a course of azithromycin. We will also recheck d-dimer. Once it is below 1.0 we can stop full-strength Lovenox and return to general VTE prophylaxis (2) Acute respiratory failure with hypoxia Is this a current diagnosis for this admission?: Yes Plan: Due to problem #1. SPO2 WNL on 2 L nasal cannula. Plan of care as above. 07/15/2019-pulse ox is 95% 4 L. Acute respiratory failure with hypoxia most likely secondary to COVID pneumonia. 01/14/2020-Down to 3 L nasal cannula with saturations in the mid 90s. Hypoxia secondary to COVID pneumonia. (3) Type 2 diabetes mellitus with morbid obesity Is this a current diagnosis for this admission?: Yes Plan: Controlled. Hemoglobin A1c 7.2. Diabetic diet, basal, sliding scale and correctional insulin. Hypoglycemia protocol. Accu-Chek. Adjust doses as needed. Resume home meds upon discharge. 01/13/2020-latest blood sugar is 214. Hemoglobin A1c 7.2. Patient is on insulin sliding scale at this time. Blood sugars are lying little bit high may be secondary to IV dexamethasone. To start him on Lantus 10 units daily. 01/14/2020-sugars have been high likely because of steroids. 10 units of Lantus was added today. Continue sliding scale. (4) Hyperlipidemia Qualifiers: Hyperlipidemia type: unspecified Qualified Code(s): E78.5 - Hyperlipidemia, unspecified Is this a current diagnosis for this admission?: Yes Plan: Diet and lifestyle modification recommended. Continue statins. Outpatient PCP follow-up. 01/14/2020-continue statins (5) Hypertension Qualifiers: Hypertension type: unspecified Qualified Code(s): I10 - Essential (primary) hypertension Is this a current diagnosis for this admission?: No Plan: Euvolemic. Normotensive. Resume home meds. Adjust meds as needed. PRN IV hydralazine. 01/13/2020-blood pressure today is 162/87. Receiving IV hydralazine on as needed basis. 01/14/2020-blood pressure still variable. IV steroids may be affecting this. Continue current regimen including as needed IV hydralazine. (6) Immunosuppressed status Is this a current diagnosis for this admission?: Yes Plan: Resume home meds. Outpatient PCP of neurology follow-up. 01/14/2020-continue mycophenolate and tacrolimus. Hold prednisone as the patient will be on 6 mg of Decadron. (7) Status post kidney transplant Is this a current diagnosis for this admission?: Yes Plan: History of polycystic kidney disease. Status post renal transplant 2016 live donor. On chronic low-dose steroids, mycophenolate mofetil, tacrolimus. Electrolytes WNL. Euvolemic. Resume home meds. Optimize BP and diabetic control. Avoid nephrotoxic meds. Outpatient PCP and nephrology follow-up. 01/14/2020-continue immunosuppressant medication. Monitor renal function. (8) Bradycardia Is this a current diagnosis for this admission?: Yes Plan: 01/14/2020-the patient does have episodes of bradycardia. I have put parameters on his labetalol. We may need to adjust the dose if this continues. - Plan Summary Summary: Patient is admitted to a medical bed on the [address], where he will receive routine supportive and symptomatic cares. He will receive supplemental oxygen via nasal cannula as needed to maintain an adequate oxygen saturation. The addition of non-invasive airway pressure support devices for maintenance of an adequate oxygen saturation will be employed as needed. He will be treated with IV antibiotics utilizing azithromycin and Rocephin. He will receive Lovenox 1 mg/kg every 12 hours subcutaneously. He will receive Ativan 1 mg IV every 4 hours as needed for anxiety or restlessness. He will receive Dilaudid 0.5 to 2 mg IV every 3 hours as needed for pain. CBCs, metabolic profiles and additional laboratory and/or radiographic evaluations will be obtained as appropriate. Patient will be on a cardiac and diabetic restricted diet. Before meals and at bedtime Accu-Cheks will be obtained and sliding scale insulin will be used for hyperglycemia with a hypoglycemic protocol in place. Patient's usual medications will be resumed, where appropriate, once his medication list has been verified and reconciled. - Time Time Spent with patient: 15-24 minutes Medications reviewed and adjusted accordingly: Yes Anticipated Discharge Disposition: Home, Self Care Anticipated Discharge Timeframe: within 72 hours
[2020-01-14] MEDS ORDERED: PHARMACY COMMUNICATION ORDER MC NR (17:30)
[2020-01-14] MEDS: ASCORBIC ACID 500 MG TABLET PO SCH (18:15)
[2020-01-14] MEDS: ATORVASTATIN CALCIUM 10 MG TABLET PO SCH (21:46)
[2020-01-14] MEDS: MELATONIN 5 MG TABLET PO PRN (21:46)
[2020-01-14] MEDS: INSULIN GLARGINE,HUM.REC.ANLOG 1,000 UNIT/10 ML VIAL SUBCUT SCH (21:47)
[2020-01-14] MEDS: PANTOPRAZOLE SODIUM 40 MG TABLET.DR PO SCH (21:50)
[2020-01-15] MEDS: IPRATROPIUM/ALBUTEROL 0.5-2.5 MG/3 ML AMPUL NEB SCH ×2 (00:38→09:19)
[2020-01-15 05:49] LABS: HEMATOCRIT 50.1 % (37.9-51.0); MEAN CORPUSCULAR HEMOGLOBIN 30.6 pg (27.0-33.4); MEAN CORPUSCULAR VOLUME 90 fl (80-97); PLATELET COUNT 287 10^3/uL (150-450); RED BLOOD COUNT 5.57 10^6/uL (4.35-5.55); RED CELL DISTRIBUTION WIDTH 13.7 % (11.5-14.0); WHITE BLOOD COUNT 11.5 10^3/uL (4.0-10.5)
[2020-01-15 06:09] LABS: ABSOLUTE LYMPHOCYTES# (MANUAL) 0.3 10^3/uL (0.5-4.7); ABSOLUTE MONOCYTES # (MANUAL) 0.9 10^3/uL (0.1-1.4); BASOPHILS % (MANUAL) 0 % (0-2); EOSINOPHILS % (MANUAL) 0 % (0-6); LYMPHOCYTES % (MANUAL) 3 % (13-45); MONOCYTES % (MANUAL) 8 % (3-13); SEGMENTED NEUTROPHILS % (MAN) 89 % (42-78); TOTAL CELLS COUNTED 100
[2020-01-15 06:10] LABS: ANION GAP 6 (5-19); BLOOD UREA NITROGEN 27 mg/dL (7-20); CALCIUM 8.9 mg/dL (8.4-10.2); CARBON DIOXIDE 30 mmol/L (22-30); CHLORIDE 100 mmol/L (98-107); GLUCOSE 200 mg/dL (75-110); PLATELET COMMENT ADEQUATE; POTASSIUM 3.6 mmol/L (3.6-5.0); RBC MORPHOLOGY COMMENT NORMO-CYTIC/CHROMIC; TOXIC VACUOLATION PRESENT
[2020-01-15] MEDS: FAMOTIDINE 20 MG TABLET PO SCH ×2 (09:18→21:30)
[2020-01-15] MEDS: PANTOPRAZOLE SODIUM 40 MG TABLET.DR PO SCH ×2 (09:19→21:30)
[2020-01-15] MEDS: MULTIVITAMIN TABLET PO SCH (09:19)
[2020-01-15] MEDS: ZINC SULFATE 220 MG CAPSULE PO SCH (09:19)
[2020-01-15] MEDS: ASCORBIC ACID 500 MG TABLET PO SCH ×2 (09:19→17:04)
[2020-01-15] MEDS: GUAIFENESIN 600 MG TABLET.SA PO SCH ×2 (09:19→21:30)
[2020-01-15] MEDS: DEXAMETHASONE SOD PHOS INJ 10 MG/1 ML VIAL IV SCH (09:19)
[2020-01-15] MEDS: AMLODIPINE BESYLATE 5 MG TABLET PO SCH (09:21)
[2020-01-15] MEDS: LOSARTAN POTASSIUM 50 MG TABLET PO SCH (09:21)
[2020-01-15] MEDS: FUROSEMIDE 40 MG TABLET PO SCH ×2 (09:21→17:04)
[2020-01-15] MEDS: LABETALOL HCL 200 MG TABLET PO SCH (09:22)
[2020-01-15] MEDS: ENOXAPARIN SODIUM INJ 40 MG/0.4 ML DISP.SYRIN SUBCUT SCH (09:22)
[2020-01-15] MEDS: CEFTRIAXONE 1 GM/D5W RTU 1 GM/50 ML RTUPB IV SCH (09:23)
[2020-01-15] MEDS: INSULIN LISPRO 100 UNIT/ML 3 ML VIAL SUBCUT SCH ×4 (09:40→21:29)
[2020-01-15] MEDS ORDERED: ENOXAPARIN SODIUM INJ 40 MG/0.4 ML DISP.SYRIN SUBCUT SCH (10:00)
[2020-01-15] MEDS ORDERED: GLIPIZIDE 5 MG TABLET PO SCH (10:00)
--- NOTE | 2020-01-15 10:04 | PDOC PROGRESS REPORT ---
Subjective Progress Note for:: 01/15/20 Subjective:: 49 past medical history of end-stage renal disease status post renal transplant 2016 on chronic immunosuppressive therapy, due to ED complaining of 5 days of dyspnea. He was evaluated by his primary care provider 3 days ago and was informed yesterday prior to the accelerated progression of his symptoms that he was positive for COVID-19. In the emergency room he was found to have a bilateral pneumonia on chest x-ray and a fever of 101.9 F. He was also noted to have acute respiratory failure with hypoxia requiring supplemental oxygen at 2 L/min via nasal cannula to maintain an adequate oxygen saturation. 01/10/2020. No acute events overnight. Patient comfortably sitting in bed no apparent distress, reporting getting winded easily upon exertion, denies any fever, chills, nausea, vomiting, diarrhea, constipation or any urinary symptoms. Alert and oriented, cooperative with physical examination, answers question appropriately, p.o. tolerant, having normal bowel and bladder movements. 01/11/2020. No acute events overnight. Patient comfortably sitting up in distress, reporting mild improvement of respiratory symptoms, denies any fever, chills, nausea, vomiting, diarrhea, constipation or any urinary symptoms. P.o. tolerant. Having normal bowel and bladder movements. 01/12/2020. No acute events overnight. Patient reporting mild improvement of respiratory symptoms, still getting short of breath when he tries ambulate, p.o. tolerant, having normal bowel and bladder movement, denies any fever, chills, nausea, vomiting, diarrhea, constipation or any urinary symptoms. 01/13/2020-patient is in the bed in mild shortness of breath. Complaining of shortness of breath worsening with minimal activity. Presently on 4 L of oxygen pulse ox 95%. Patient is bradycardic with heart rate is around 49 this morning to hold the labetalol at this time. Patient is receiving IV Rocephin, IV dexamethasone. He is also on a treatment dose of Lovenox. And is to continue the present management for the next several days. 01/15/2020-patient is doing well. Comfortably in the bed communicating well. Pulse ox is 96% on 2 L. Patient is still bradycardic heart rate in the 50s. D- dimer is 0.54 to switch Lovenox from treatment dose to prophylactic dose. Patient is not using nebs plan is to discontinue nebulizations. Reason For Visit: BILATERAL PNEUMONIA DUE TO COVID19,ACUTE RESPIRATO Physical Exam Vital Signs: Temp Pulse Resp BP Pulse Ox 97.6 F 50 L 17 137/94 H 96 01/15/20 08:24 01/15/20 08:24 01/15/20 08:24 01/15/20 08:24 01/15/20 08:24 Intake & Output 01/14/20 01/15/20 01/16/20 06:59 06:59 06:59 Intake Total 1335 890 Output Total 1725 1500 Balance -390 -610 Weight 114.8 kg 114.8 kg General appearance: PRESENT: no acute distress, obese, well-developed Head exam: PRESENT: atraumatic Eye exam: PRESENT: PERRLA Mouth exam: PRESENT: moist, tongue midline Teeth exam: PRESENT: poor dentation Neck exam: ABSENT: carotid bruit, JVD, lymphadenopathy, thyromegaly Respiratory exam: PRESENT: decreased breath sounds Cardiovascular exam: PRESENT: bradycardia GI/Abdominal exam: PRESENT: normal bowel sounds, soft. ABSENT: distended, guarding, mass, organolmegaly, rebound, tenderness Rectal exam: PRESENT: deferred Extremities exam: PRESENT: full ROM. ABSENT: calf tenderness, clubbing, pedal edema Neurological exam: PRESENT: alert, awake, oriented to person, oriented to place, oriented to time, oriented to situation, CN II-XII grossly intact. ABSENT: motor sensory deficit Psychiatric exam: PRESENT: appropriate affect, normal mood. ABSENT: homicidal ideation, suicidal ideation Results Laboratory Results: 01/15/20 04:59 01/15/20 04:59 01/15/20 01/15/20 04:59 04:59 WBC 11.5 H RBC 5.57 H Hgb 17.0 Hct 50.1 MCV 90 MCH 30.6 MCHC 34.0 RDW 13.7 Plt Count 287 Seg Neutrophils % Not Reportable Sodium 136.1 L Potassium 3.6 Chloride 100 Carbon Dioxide 30 Anion Gap 6 BUN 27 H Creatinine 0.96 Est GFR ( Amer) > 60 Glucose 200 H Calcium 8.9 Magnesium 2.1 01/08/20 01/10/20 01/10/20 22:28 09:16 18:35 Troponin I 0.038 0.015 < 0.012 Impressions: Chest X-Ray 01/08/20 21:47 IMPRESSION: Patchy bilateral multifocal pneumonia. Assessment and Plan - Diagnosis (1) Pneumonia due to COVID-19 virus Is this a current diagnosis for this admission?: Yes Plan: Patient was treated for COVID-19 as outpatient by PCP. As per patient result was positive. Still complaining of generalized fatigue and getting easily winded upon exertion. SPO2 WNL on 2 L nasal cannula. Afebrile. Mild leukocytosis. D-dimer 1.11. Day 4 IV antibiotics. Day 4 IV ceftriaxone. Day 4 therapeutic enoxaparin. Day 4 IV Decadron. Cultures negative so far. Continue IV antibiotics. Continue IV steroids. Continue supplemental oxygen. Continue duo nebs. 01/13/2020-patient is receiving IV dexamethasone 6 mg daily, IV Rocephin, treatment dose of Lovenox. Blood cultures are negative. Pulse ox is 95% 4 L. Plan is to continue the present management at this time. WBC count is 10,600. 01/14/2020-patient had refused Decadron initially. He was taking his 5 mg of prednisone for immunosuppression. I told him the Decadron was many times stronger. His white blood cell count did go up slightly but this could be the steroids. Oxygen saturation has been mid 90s on 3 L nasal cannula. The patient continues on Rocephin and has finished a course of azithromycin. We will also recheck d-dimer. Once it is below 1.0 we can stop full-strength Lovenox and return to general VTE prophylaxis 01/15/2020-patient is doing much better. Pulse ox is 96% 2 L. No need for nebulizations at this time. Patient is on IV Rocephin, IV Decadron 6 mg daily. D-dimer came back normal and plan is to switch Lovenox to prophylactic dose . (2) Acute respiratory failure with hypoxia Is this a current diagnosis for this admission?: Yes Plan: Due to problem #1. SPO2 WNL on 2 L nasal cannula. Plan of care as above. 01/13/2020-pulse ox is 95% 4 L. Acute respiratory failure with hypoxia most likely secondary to COVID pneumonia. 01/14/2020-Down to 3 L nasal cannula with saturations in the mid 90s. Hypoxia secondary to COVID pneumonia. 01/15/2020-pulse ox is 96% on 2 L. Hypoxia due to COVID pneumonia resolving. (3) Hypertension Qualifiers: Hypertension type: unspecified Qualified Code(s): I10 - Essential (primary) hypertension Is this a current diagnosis for this admission?: No Plan: Euvolemic. Normotensive. Resume home meds. Adjust meds as needed. PRN IV hydralazine. 01/13/2020-blood pressure today is 162/87. Receiving IV hydralazine on as needed basis. 01/14/2020-blood pressure still variable. IV steroids may be affecting this. Continue current regimen including as needed IV hydralazine. 01/15/2020-blood pressure today is 144/94. Plan is to continue his home medications and to continue IV hydralazine as needed and as needed basis. (4) Status post kidney transplant Is this a current diagnosis for this admission?: No Plan: History of polycystic kidney disease. Status post renal transplant 2016 live donor. On chronic low-dose steroids, mycophenolate mofetil, tacrolimus. Electrolytes WNL. Euvolemic. Resume home meds. Optimize BP and diabetic control. Avoid nephrotoxic meds. Outpatient PCP and nephrology follow-up. 01/14/2020-continue immunosuppressant medication. Monitor renal function. 01/15/2020-serum creatinine today 0.96 within normal limits. (5) Type 2 diabetes mellitus with morbid obesity Is this a current diagnosis for this admission?: No Plan: Controlled. Hemoglobin A1c 7.2. Diabetic diet, basal, sliding scale and correctional insulin. Hypoglycemia protocol. Accu-Chek. Adjust doses as needed. Resume home meds upon discharge. 01/13/2020-latest blood sugar is 214. Hemoglobin A1c 7.2. Patient is on insulin sliding scale at this time. Blood sugars are lying little bit high may be secondary to IV dexamethasone. To start him on Lantus 10 units daily. 01/14/2020-sugars have been high likely because of steroids. 10 units of Lantus was added today. Continue sliding scale. 01/15/2020-latest blood sugar is 200 patient has insulin sliding scale before meals and at bedtime and Lantus 10 units daily. Plan is to continue the present management at this time. (6) Elevated troponin Is this a current diagnosis for this admission?: Yes Plan: Denies any anginal symptoms. Likely due to demand mismatch in the setting of CKD. Troponins 0.038, 0.015, 0.012 respectively EKG positive for left anterior fascicular block. Chronic. No acute changes. Continue trend troponins, antiplatelets, ARB, beta-blockers, statins. 01/13/2020-patient denies any chest pains this morning. He is on treatment dose of Lovenox. He is also on losartan, atorvastatin and beta-blockers. plan is to continue the present management. - Plan Summary Summary: Patient is admitted to a medical bed on the [address], where he will receive routine supportive and symptomatic cares. He will receive supplemental oxygen via nasal cannula as needed to maintain an adequate oxygen saturation. The addition of non-invasive airway pressure support devices for maintenance of an adequate oxygen saturation will be employed as needed. He will be treated with IV antibiotics utilizing azithromycin and Rocephin. He will receive Lovenox 1 mg/kg every 12 hours subcutaneously. He will receive Ativan 1 mg IV every 4 hours as needed for anxiety or restlessness. He will receive Dilaudid 0.5 to 2 mg IV every 3 hours as needed for pain. CBCs, metabolic profiles and additional laboratory and/or radiographic evaluations will be obtained as appropriate. Patient will be on a cardiac and diabetic restricted diet. Before meals and at bedtime Accu-Cheks will be obtained and sliding scale insulin will be used for hyperglycemia with a hypoglycemic protocol in place. Patient's usual medications will be resumed, where appropriate, once his medication list has been verified and reconciled. - Time Anticipated Discharge Disposition: Home, Self Care Anticipated Discharge Timeframe: within 72 hours
[2020-01-15] MEDS: GLIPIZIDE 10 MG TABLET PO SCH (10:09)
[2020-01-15] MEDS ORDERED: HYDROMORPHONE HCL INJ/PF 2 MG/ML AMPULE IV PRN ×4 (12:32→12:34)
--- NOTE | 2020-01-15 17:58 | EKG REPORT ---
SEVERITY:- ABNORMAL ECG - SINUS RHYTHM LEFT ANTERIOR FASCICULAR BLOCK : Confirmed by: Keeley Covarrubias MD 15-Jan-2020 17:57:10
[2020-01-15] MEDS: INSULIN GLARGINE,HUM.REC.ANLOG 1,000 UNIT/10 ML VIAL SUBCUT SCH (21:29)
[2020-01-15] MEDS: ATORVASTATIN CALCIUM 10 MG TABLET PO SCH (21:30)
[2020-01-15] MEDS: MELATONIN 5 MG TABLET PO PRN (21:30)
[2020-01-16 05:56] LABS: HEMATOCRIT 50.2 % (37.9-51.0); HEMOGLOBIN 16.8 g/dL (13.5-17.0); MEAN CORPUSCULAR HEMOGLOBIN 30.4 pg (27.0-33.4); MEAN CORPUSCULAR HGB CONC 33.5 g/dL (32.0-36.0); MEAN CORPUSCULAR VOLUME 91 fl (80-97); PLATELET COUNT 290 10^3/uL (150-450); RED BLOOD COUNT 5.55 10^6/uL (4.35-5.55); RED CELL DISTRIBUTION WIDTH 13.4 % (11.5-14.0); WHITE BLOOD COUNT 11.6 10^3/uL (4.0-10.5)
[2020-01-16 06:24] LABS: ALBUMIN 3.2 g/dL (3.5-5.0); ALKALINE PHOSPHATASE 51 U/L (38-126); ANION GAP 5 (5-19); ASPARTATE AMINO TRANSFERASE 24 U/L (17-59); BILIRUBIN,TOTAL 0.9 mg/dL (0.2-1.3); BLOOD UREA NITROGEN 26 mg/dL (7-20); CARBON DIOXIDE 29 mmol/L (22-30); CHLORIDE 100 mmol/L (98-107); GLUCOSE 179 mg/dL (75-110); TOTAL PROTEIN 5.7 g/dL (6.3-8.2)
[2020-01-16] MEDS: INSULIN LISPRO 100 UNIT/ML 3 ML VIAL SUBCUT SCH ×4 (09:42→22:35)
[2020-01-16] MEDS: DEXAMETHASONE SOD PHOS INJ 10 MG/1 ML VIAL IV SCH (09:43)
[2020-01-16] MEDS: MULTIVITAMIN TABLET PO SCH (09:44)
[2020-01-16] MEDS: ENOXAPARIN SODIUM INJ 40 MG/0.4 ML DISP.SYRIN SUBCUT SCH (09:44)
[2020-01-16] MEDS: ZINC SULFATE 220 MG CAPSULE PO SCH (09:44)
[2020-01-16] MEDS: FAMOTIDINE 20 MG TABLET PO SCH ×2 (09:44→22:34)
[2020-01-16] MEDS: FUROSEMIDE 40 MG TABLET PO SCH ×2 (09:44→18:16)
[2020-01-16] MEDS: GLIPIZIDE 10 MG TABLET PO SCH (09:44)
[2020-01-16] MEDS: GUAIFENESIN 600 MG TABLET.SA PO SCH ×2 (09:44→22:34)
[2020-01-16] MEDS: ASCORBIC ACID 500 MG TABLET PO SCH ×2 (09:44→18:16)
[2020-01-16] MEDS: LOSARTAN POTASSIUM 50 MG TABLET PO SCH (09:44)
[2020-01-16] MEDS: PANTOPRAZOLE SODIUM 40 MG TABLET.DR PO SCH ×2 (09:44→22:35)
--- NOTE | 2020-01-16 14:23 | PDOC PROGRESS REPORT ---
Subjective Progress Note for:: 01/16/20 Subjective:: KIMBERLEY HASSAN is a 49 past medical history of end-stage renal disease status post renal transplant 2016 on chronic immunosuppressive therapy, due to ED complaining of 5 days of dyspnea. He was evaluated by his primary care provider 3 days ago and was informed yesterday prior to the accelerated progression of his symptoms that he was positive for COVID-19. In the emergency room he was found to have a bilateral pneumonia on chest x-ray and a fever of 101.9 F. He was also noted to have acute respiratory failure with hypoxia requiring supplemental oxygen at 2 L/min via nasal cannula to maintain an adequate oxygen saturation. 01/16/2020. No acute events overnight. Comfortably said no apparent distress. On 2 L nasal cannula, denies any fever, chills, nausea, vomiting, diarrhea, constipation or any urinary symptoms. Reason For Visit: BILATERAL PNEUMONIA DUE TO COVID19,ACUTE RESPIRATO Physical Exam Vital Signs: Temp Pulse Resp BP Pulse Ox 97.9 F 52 L 16 130/83 H 92 01/16/20 12:39 01/16/20 12:39 01/16/20 12:39 01/16/20 12:39 01/16/20 12:39 Intake & Output 01/15/20 01/16/20 01/17/20 06:59 06:59 06:59 Intake Total 890 2281 Output Total 1500 1420 Balance -610 861 Weight 114.8 kg 115.1 kg General appearance: PRESENT: no acute distress, obese Head exam: PRESENT: atraumatic, normocephalic Neck exam: ABSENT: carotid bruit, JVD, lymphadenopathy, thyromegaly Respiratory exam: PRESENT: clear to auscultation darinel. ABSENT: rales, rhonchi, wheezes GI/Abdominal exam: PRESENT: normal bowel sounds, soft. ABSENT: distended, guarding, mass, organolmegaly, rebound, tenderness Neurological exam: PRESENT: alert, awake, oriented to person, oriented to place, oriented to time, oriented to situation, CN II-XII grossly intact. ABSENT: motor sensory deficit Skin exam: PRESENT: dry, intact, warm. ABSENT: cyanosis, rash Results Laboratory Results: 01/16/20 04:56 01/16/20 04:56 01/16/20 01/16/20 04:56 04:56 WBC 11.6 H RBC 5.55 Hgb 16.8 Hct 50.2 MCV 91 MCH 30.4 MCHC 33.5 RDW 13.4 Plt Count 290 Sodium 134.4 L Potassium 4.0 Chloride 100 Carbon Dioxide 29 Anion Gap 5 BUN 26 H Creatinine 0.94 Est GFR ( Amer) > 60 Glucose 179 H Calcium 9.0 Total Bilirubin 0.9 AST 24 Alkaline Phosphatase 51 Total Protein 5.7 L Albumin 3.2 L 01/08/20 01/10/20 01/10/20 22:28 09:16 18:35 Troponin I 0.038 0.015 < 0.012 01/15/20 17:29 Troponin I < 0.012 Impressions: Chest X-Ray 01/08/20 21:47 IMPRESSION: Patchy bilateral multifocal pneumonia. Assessment and Plan - Diagnosis (1) Pneumonia due to COVID-19 virus Is this a current diagnosis for this admission?: Yes Plan: Patient was treated for COVID-19 as outpatient by PCP. As per patient result was positive. Much improved. SPO2 WNL on 2 L. No leukocytosis. D-dimer WNL. Received a complete course of IV ceftriaxone. Received a complete course of IV Decadron. Was on therapeutic enoxaparin. Wean off of oxygen if possible. Possible discharge home tomorrow. (2) Acute respiratory failure with hypoxia Is this a current diagnosis for this admission?: Yes Plan: Due to problem #1. SPO2 WNL on 2 L nasal cannula. Plan of care as above. (3) Hyperlipidemia Qualifiers: Hyperlipidemia type: unspecified Qualified Code(s): E78.5 - Hyperlipidemia, unspecified Is this a current diagnosis for this admission?: Yes Plan: Diet and lifestyle modification recommended. Continue statins. Outpatient PCP follow-up. (4) Hypertension Qualifiers: Hypertension type: unspecified Qualified Code(s): I10 - Essential (primary) hypertension Is this a current diagnosis for this admission?: No Plan: Euvolemic. Normotensive. Resume home meds. Adjust meds as needed. PRN IV hydralazine. (5) Status post kidney transplant Is this a current diagnosis for this admission?: No Plan: History of polycystic kidney disease. Status post renal transplant 2016 live donor. On chronic low-dose steroids, mycophenolate mofetil, tacrolimus. Electrolytes WNL. Euvolemic. Resume home meds. Optimize BP and diabetic control. Avoid nephrotoxic meds. Outpatient PCP and nephrology follow-up. (6) Immunosuppressed status Is this a current diagnosis for this admission?: Yes Plan: Resume home meds. Outpatient PCP of neurology follow-up. (7) Type 2 diabetes mellitus with morbid obesity Is this a current diagnosis for this admission?: No Plan: Controlled. Hemoglobin A1c 7.2. Diabetic diet, basal, sliding scale and correctional insulin. Hypoglycemia prot ocol. Accu-Chek. Adjust doses as needed. Resume home meds upon discharge. (8) Elevated troponin Is this a current diagnosis for this admission?: Yes Plan: Denies any anginal symptoms. Likely due to demand mismatch in the setting of CKD. Troponins 0.038, 0.015, 0.012 respectively EKG positive for left anterior fascicular block. Chronic. No acute changes. Continue trend troponins, antiplatelets, ARB, beta-blockers, statins. - Time Time Spent with patient: 15-24 minutes Medications reviewed and adjusted accordingly: Yes Anticipated Discharge Disposition: Home, Self Care Anticipated Discharge Timeframe: within 24 hours
[2020-01-16] MEDS: MELATONIN 5 MG TABLET PO PRN (22:34)
[2020-01-16] MEDS: ATORVASTATIN CALCIUM 10 MG TABLET PO SCH (22:34)
[2020-01-16] MEDS: INSULIN GLARGINE,HUM.REC.ANLOG 1,000 UNIT/10 ML VIAL SUBCUT SCH (22:36)
[2020-01-17 06:40] LABS: HEMATOCRIT 51.2 % (37.9-51.0); HEMOGLOBIN 17.5 g/dL (13.5-17.0); MEAN CORPUSCULAR HEMOGLOBIN 30.7 pg (27.0-33.4); MEAN CORPUSCULAR HGB CONC 34.2 g/dL (32.0-36.0); MEAN CORPUSCULAR VOLUME 90 fl (80-97); PLATELET COUNT 277 10^3/uL (150-450); RED CELL DISTRIBUTION WIDTH 13.7 % (11.5-14.0); WHITE BLOOD COUNT 11.8 10^3/uL (4.0-10.5)
[2020-01-17 06:57] LABS: ANION GAP 6 (5-19); BLOOD UREA NITROGEN 29 mg/dL (7-20); CALCIUM 8.8 mg/dL (8.4-10.2); CARBON DIOXIDE 31 mmol/L (22-30); CHLORIDE 97 mmol/L (98-107); GLUCOSE 194 mg/dL (75-110); POTASSIUM 4.3 mmol/L (3.6-5.0)
[2020-01-17 07:19] LABS: ABSOLUTE LYMPHOCYTES# (MANUAL) 0.9 10^3/uL (0.5-4.7); ABSOLUTE MONOCYTES # (MANUAL) 1.5 10^3/uL (0.1-1.4); BAND NEUTROPHILS % (MANUAL) 3 % (3-5); BASOPHILS % (MANUAL) 0 % (0-2); EOSINOPHILS % (MANUAL) 0 % (0-6); LYMPHOCYTES % (MANUAL) 7 % (13-45); METAMYELOCYTES % (MANUAL) 1 % (0-1); MONOCYTES % (MANUAL) 13 % (3-13); PLATELET COMMENT ADEQUATE; RBC MORPHOLOGY COMMENT NORMO-CYTIC/CHROMIC; SEGMENTED NEUTROPHILS % (MAN) 75 % (42-78); TOTAL CELLS COUNTED 100; TOXIC GRANULATION SLIGHT; TOXIC VACUOLATION PRESENT
[2020-01-17] MEDS: GLIPIZIDE 10 MG TABLET PO SCH (08:02)
[2020-01-17] MEDS: INSULIN LISPRO 100 UNIT/ML 3 ML VIAL SUBCUT SCH ×2 (08:03→11:21)
[2020-01-17] MEDS: ZINC SULFATE 220 MG CAPSULE PO SCH (09:12)
[2020-01-17] MEDS: ENOXAPARIN SODIUM INJ 40 MG/0.4 ML DISP.SYRIN SUBCUT SCH (09:12)
[2020-01-17] MEDS: ASCORBIC ACID 500 MG TABLET PO SCH (09:12)
[2020-01-17] MEDS: FAMOTIDINE 20 MG TABLET PO SCH (09:13)
[2020-01-17] MEDS: PANTOPRAZOLE SODIUM 40 MG TABLET.DR PO SCH (09:13)
[2020-01-17] MEDS: MULTIVITAMIN TABLET PO SCH (09:13)
[2020-01-17] MEDS: LOSARTAN POTASSIUM 50 MG TABLET PO SCH (09:13)
[2020-01-17] MEDS: GUAIFENESIN 600 MG TABLET.SA PO SCH (09:13)
[2020-01-17] MEDS ORDERED: PREDNISONE 5 MG TABLET PO SCH (10:00)
[2020-01-17] MEDS ORDERED: NORMAL SALINE 1000 ML 500 ML IV ONE (11:30)
[2020-01-17 11:55] LABS: HEMATOCRIT 48.3 % (37.9-51.0); HEMOGLOBIN 16.3 g/dL (13.5-17.0); MEAN CORPUSCULAR HEMOGLOBIN 30.5 pg (27.0-33.4); MEAN CORPUSCULAR HGB CONC 33.9 g/dL (32.0-36.0); MEAN CORPUSCULAR VOLUME 90 fl (80-97); PLATELET COUNT 256 10^3/uL (150-450); RED BLOOD COUNT 5.36 10^6/uL (4.35-5.55); RED CELL DISTRIBUTION WIDTH 13.3 % (11.5-14.0); WHITE BLOOD COUNT 11.5 10^3/uL (4.0-10.5)
[2020-01-17 12:05] LABS: ANION GAP 7 (5-19); BLOOD UREA NITROGEN 28 mg/dL (7-20); CALCIUM 8.5 mg/dL (8.4-10.2); CARBON DIOXIDE 27 mmol/L (22-30); CHLORIDE 99 mmol/L (98-107); GLUCOSE 300 mg/dL (75-110); POTASSIUM 3.7 mmol/L (3.6-5.0)
[2020-01-17 12:27] LABS: ABSOLUTE LYMPHOCYTES# (MANUAL) 0.8 10^3/uL (0.5-4.7); ABSOLUTE MONOCYTES # (MANUAL) 0.9 10^3/uL (0.1-1.4); BASOPHILS % (MANUAL) 0 % (0-2); EOSINOPHILS % (MANUAL) 0 % (0-6); LYMPHOCYTES % (MANUAL) 7 % (13-45); MONOCYTES % (MANUAL) 8 % (3-13); SEGMENTED NEUTROPHILS % (MAN) 85 % (42-78); TOTAL CELLS COUNTED 100
[2020-01-17 12:28] LABS: PLATELET COMMENT ADEQUATE; RBC MORPHOLOGY COMMENT NORMO-CYTIC/CHROMIC
[2020-01-17 12:53] VITALS: BP 142/90
--- NOTE | 2020-01-22 11:56 | PDOC DISCHARGE SUMMARY ---
Impression - Admit/DC Date/PCP Admission Date/Primary Care Provider: 01/09/20 00:43 CALVIN ALSTON MD Discharge Date: 01/17/20 - Discharge Diagnosis (1) Pneumonia due to COVID-19 virus Is this a current diagnosis for this admission?: Yes (2) Acute respiratory failure with hypoxia Is this a current diagnosis for this admission?: Yes (3) Hyperlipidemia Is this a current diagnosis for this admission?: Yes (4) Hypertension Is this a current diagnosis for this admission?: No (5) Status post kidney transplant Is this a current diagnosis for this admission?: No (6) Immunosuppressed status Is this a current diagnosis for this admission?: Yes (7) Type 2 diabetes mellitus with morbid obesity Is this a current diagnosis for this admission?: No (8) Elevated troponin Is this a current diagnosis for this admission?: Yes - Assessment Summary: Patient is admitted to a medical bed on the [place] [id number] care unit, where he will receive routine supportive and symptomatic cares. He will receive supplemental oxygen via nasal cannula as needed to maintain an adequate oxygen saturation. The addition of non-invasive airway pressure support devices for maintenance of an adequate oxygen saturation will be employed as needed. He will be treated with IV antibiotics utilizing azithromycin and Rocephin. He will receive Lovenox 1 mg/kg every 12 hours subcutaneously. He will receive Ativan 1 mg IV every 4 hours as needed for anxiety or restlessness. He will receive Dilaudid 0.5 to 2 mg IV every 3 hours as needed for pain. CBCs, metabolic profiles and additional laboratory and/or radiographic evaluations will be obtained as appropriate. Patient will be on a cardiac and diabetic restricted diet. Before meals and at bedtime Accu-Cheks will be obtained and sliding scale insulin will be used for hyperglycemia with a hypoglycemic protocol in place. Patient's usual medications will be resumed, where appropriate, once his medication list has been verified and reconciled. - Additional Information Resuscitation Status: Full Code Discharge Diet: Cardiac, Diabetic Discharge Activity: Activity As Tolerated, Balance Activity w/Rest Referrals: CALVIN ALSTON MD [Primary Care Provider] - Follow up as needed (Follow-up appointment request - put on weekend follow-up book.) Prescriptions: Furosemide [Lasix] 20 mg PO BID 30 Days #60 tablet Home Medications: Losartan Potassium 100 mg PO DAILY 07/06/15 Omeprazole 40 mg PO BID 07/06/15 Glipizide [Glucotrol] 10 mg PO DAILY 08/20/18 Multivitamin [Daily Multiple Vitamin] 1 each PO DAILY 08/20/18 Mycophenolate Sodium [Myfortic 180 Mg Tablet.Dr] 540 mg PO BID 08/20/18 Prednisone [Deltasone 5 mg Tablet] 5 mg PO DAILY 08/20/18 Tacrolimus [Envarsus Xr] 3 mg PO DAILY 08/20/18 Amlodipine Besylate [Norvasc 5 mg Tablet] 5 mg PO DAILY 01/09/20 Atorvastatin Calcium [Lipitor 10 mg Tablet] 10 mg PO QHS 01/09/20 Metformin HCl [Metformin HCl ER] 1,000 mg PO BID 01/09/20 Furosemide [Lasix] 20 mg PO BID 30 Days #60 tablet 01/17/20 History of Present Illiness History of Present Illness: KIMBERLEY HASSAN is a 49 past medical history of end-stage renal disease status post renal transplant 2016 on chronic immunosuppressive therapy, due to ED complaining of 5 days of dyspnea. He was evaluated by his primary care provider 3 days ago and was informed yesterday prior to the accelerated progression of his symptoms that he was positive for COVID-19. In the emergency room he was found to have a bilateral pneumonia on chest x-ray and a fever of 101.9 F. He was also noted to have acute respiratory failure with hypoxia requiring supplemental oxygen at 2 L/min via nasal cannula to maintain an adequate oxygen saturation. Hospital Course Hospital Course: (1) Pneumonia due to COVID-19 virus Patient was treated for COVID-19 as outpatient by PCP. As per patient result was positive. Much improved. SPO2 WNL. No leukocytosis. D-dimer WNL. Afebrile. Received a complete course of IV ceftriaxone. Received a complete course of IV Decadron. Received therapeutic enoxaparin. (2) Acute respiratory failure with hypoxia Due to problem #1. SPO2 WNL on 2 L nasal cannula. Plan of care as above. (3) Hyperlipidemia Diet and lifestyle modification recommended. Continued statins. Outpatient PCP follow-up. (4) Hypertension Euvolemic. Normotensive. Resumed home meds. Adjust meds as needed. PRN IV hydralazine. (5) Status post kidney transplant History of polycystic kidney disease. Status post renal transplant 2016 live donor. On chronic low-dose steroids, mycophenolate mofetil, tacrolimus. Electrolytes WNL. Euvolemic. Resumed home meds. Optimize BP and diabetic control. Avoid nephrotoxic meds. Outpatient PCP and nephrology follow-up. (6) Immunosuppressed status Resumed home meds. Outpatient PCP of neurology follow-up. (7) Type 2 diabetes mellitus with morbid obesity Controlled. Hemoglobin A1c 7.2. Diabetic diet, basal, sliding scale and correctional insulin. Hypoglycemia protocol. Accu-Chek. Adjust doses as needed. Resumed home meds upon discharge. (8) Elevated troponin Denies any anginal symptoms. Likely due to demand mismatch in the setting of CKD. Troponins 0.038, 0.015, 0.012 respectively EKG positive for left anterior fascicular block. Chronic. No acute changes. Troponins trending back to normal was continued on antiplatelets, ARB, beta- blockers, statins. Physical Exam Vital Signs: Temp Pulse Resp BP Pulse Ox 97.6 F 56 L 18 142/90 H 92 01/17/20 12:49 01/17/20 12:49 01/17/20 12:49 01/17/20 12:49 01/17/20 12:49 General appearance: PRESENT: no acute distress, obese, well-developed, well- nourished Head exam: PRESENT: atraumatic, normocephalic Respiratory exam: PRESENT: clear to auscultation darinel. ABSENT: rales, rhonchi, wheezes Cardiovascular exam: PRESENT: RRR. ABSENT: diastolic murmur, rubs, systolic murmur GI/Abdominal exam: PRESENT: normal bowel sounds, soft. ABSENT: distended, guarding, mass, organolmegaly, rebound, tenderness Neurological exam: PRESENT: alert, awake, oriented to person, oriented to place, oriented to time, oriented to situation, CN II-XII grossly intact. ABSENT: motor sensory deficit Results Laboratory Results: WBC 11.5 10^3/uL (4.0-10.5) H 01/17/20 11:09 RBC 5.36 10^6/uL (4.35-5.55) 01/17/20 11:09 Hgb 16.3 g/dL (13.5-17.0) 01/17/20 11:09 Hct 48.3 % (37.9-51.0) 01/17/20 11:09 MCV 90 fl (80-97) 01/17/20 11:09 MCH 30.5 pg (27.0-33.4) 01/17/20 11:09 MCHC 33.9 g/dL (32.0-36.0) 01/17/20 11:09 RDW 13.3 % (11.5-14.0) 01/17/20 11:09 Plt Count 256 10^3/uL (150-450) 01/17/20 11:09 Lymph % (Auto) Not Reportable 01/17/20 11:09 [place] % (Auto) Not Reportable 01/17/20 11:09 Eos % (Auto) Not Reportable 01/17/20 11:09 Baso % (Auto) Not Reportable 01/17/20 11:09 Absolute Neuts (auto) Not Reportable 01/17/20 11:09 Absolute Lymphs (auto) Not Reportable 01/17/20 11:09 Absolute Monos (auto) Not Reportable 01/17/20 11:09 Absolute Eos (auto) Not Reportable 01/17/20 11:09 Absolute Basos (auto) Not Reportable 01/17/20 11:09 Total Counted 100 01/17/20 11:09 Seg Neutrophils % Not Reportable 01/17/20 11:09 Seg Neuts % (Manual) 85 % (42-78) H 01/17/20 11:09 Band Neutrophils % 3 % (3-5) 01/17/20 05:48 Lymphocytes % (Manual) 7 % (13-45) L 01/17/20 11:09 Atypical Lymphs % 1 % (0) 01/17/20 05:48 Monocytes % (Manual) 8 % (3-13) 01/17/20 11:09 Eosinophils % (Manual) 0 % (0-6) 01/17/20 11:09 Basophils % (Manual) 0 % (0-2) 01/17/20 11:09 Metamyelocytes % 1 % (0-1) 01/17/20 05:48 Abs Neuts (Manual) 9.8 10^3/uL (1.7-8.2) H 01/17/20 11:09 Abs Lymphs (Manual) 0.8 10^3/uL (0.5-4.7) 01/17/20 11:09 Abs Monocytes (Manual) 0.9 10^3/uL (0.1-1.4) 01/17/20 11:09 Absolute Eos (Manual) 0.0 10^3/uL (0.0-0.6) 01/17/20 11:09 Abs Basophils (Manual) 0.0 10^3/uL (0.0-0.2) 01/17/20 11:09 Toxic Granulation SLIGHT 01/17/20 05:48 Toxic Vacuolation PRESENT 01/17/20 05:48 Platelet Comment ADEQUATE 01/17/20 11:09 RBC Morph Comment NORMO-CYTIC/CHROMIC 01/17/20 11:09 PT 12.8 SEC (11.4-15.4) 01/08/20 22:28 INR 0.96 01/08/20 22:28 D-Dimer 0.54 ug/mL (0.00-0.50) H 01/15/20 04:59 VBG pH 7.45 (7.30-7.42) H 01/08/20 22:28 VBG pCO2 37.6 mmHg (35-63) 01/08/20 22:28 VBG HCO3 25.7 mmol/L (20-32) 01/08/20 22:28 VBG Base Excess 2.0 mmol/L 01/08/20 22:28 Sodium 132.6 mmol/L (137-145) L 01/17/20 11:09 Potassium 3.7 mmol/L (3.6-5.0) 01/17/20 11:09 Chloride 99 mmol/L (98-107) 01/17/20 11:09 Carbon Dioxide 27 mmol/L (22-30) 01/17/20 11:09 Anion Gap 7 (5-19) 01/17/20 11:09 BUN 28 mg/dL (7-20) H 01/17/20 11:09 Creatinine 0.93 mg/dL (0.52-1.25) 01/17/20 11:09 Est GFR ( Amer) > 60 (>60) 01/17/20 11:09 Est GFR (MDRD) Non-Af > 60 (>60) 01/17/20 11:09 Glucose 300 mg/dL (75-110) H 01/17/20 11:09 POC Glucose 277 mg/dL (70-110) H 01/17/20 11:14 Hemoglobin A1c % 7.3 % (4.7-6.0) H 01/10/20 04:47 Lactic Acid 1.1 mmol/L (0.7-2.1) 01/09/20 04:30 Calcium 8.5 mg/dL (8.4-10.2) 01/17/20 11:09 Magnesium 2.1 mg/dL (1.6-2.3) 01/15/20 04:59 Total Bilirubin 0.9 mg/dL (0.2-1.3) 01/16/20 04:56 Direct Bilirubin 0.0 mg/dL (0.0-0.4) 01/16/20 04:56 Neonat Total Bilirubin Not Reportable 01/16/20 04:56 Neonat Direct Bilirubin Not Reportable 01/16/20 04:56 Neonat Indirect Bili Not Reportable 01/16/20 04:56 AST 24 U/L (17-59) 01/16/20 04:56 ALT 55 U/L (<50) H 01/16/20 04:56 Alkaline Phosphatase 51 U/L (38-126) 01/16/20 04:56 Troponin I < 0.012 ng/mL 01/15/20 17:29 Total Protein 5.7 g/dL (6.3-8.2) L 01/16/20 04:56 Albumin 3.2 g/dL (3.5-5.0) L 01/16/20 04:56 Urine Color YELLOW 01/14/20 06:15 Urine Appearance SLIGHTLY-CLOUDY 01/14/20 06:15 Urine pH 6.0 (5.0-9.0) 01/14/20 06:15 Ur Specific [place] 1.020 01/14/20 06:15 Urine Protein NEGATIVE mg/dL (NEGATIVE) 01/14/20 06:15 Urine Glucose (UA) >=500 mg/dL (NEGATIVE) H 01/14/20 06:15 Urine Ketones NEGATIVE mg/dL (NEGATIVE) 01/14/20 06:15 Urine Blood NEGATIVE (NEGATIVE) 01/14/20 06:15 Urine Nitrite NEGATIVE (NEGATIVE) 01/14/20 06:15 Urine Bilirubin NEGATIVE (NEGATIVE) 01/14/20 06:15 Urine Urobilinogen NEGATIVE mg/dL (<2.0) 01/14/20 06:15 Ur Leukocyte Esterase NEGATIVE (NEGATIVE) 01/14/20 06:15 Urine WBC (Auto) 0 /HPF 01/14/20 06:15 Urine RBC (Auto) 0 /HPF 01/14/20 06:15 Squamous Epi Cells Auto <1 /HPF 01/14/20 06:15 Urine Ascorbic Acid NEGATIVE (NEGATIVE) 01/14/20 06:15 01/08/20 01/10/20 01/10/20 22:28 09:16 18:35 Troponin I 0.038 0.015 < 0.012 01/15/20 17:29 Troponin I < 0.012 Impressions: Chest X-Ray 01/08/20 21:47 IMPRESSION: Patchy bilateral multifocal pneumonia. Plan Time Spent: Greater than 30 Minutes Stroke Is this a Stroke Patient?: No Acute Heart Failure - Is this a Heart Failure Patient?: No
== END 2020-01-17 13:16 | disposition home or self-care (01) | DRG 177 ==
LOC: ER 21:18 → EH 01-09 00:43 → 3N 01-09 03:00
PROVIDERS: ADMIT Emergency Medicine; ATTEND Internal Medicine
DX: U07.1 COVID-19 (principal); J12.89 Other viral pneumonia; J96.01 Acute respiratory failure with hypoxia; N18.6 End stage renal disease; I12.0 Hypertensive chronic kidney disease with stage 5 chronic kidney disease or end stage renal disease; Z94.0 Kidney transplant status; R79.89 Other specified abnormal findings of blood chemistry; E78.5 Hyperlipidemia, unspecified; E11.22 Type 2 diabetes mellitus with diabetic chronic kidney disease; K21.9 Gastro-esophageal reflux disease without esophagitis; I44.4 Left anterior fascicular block; E66.01 Morbid (severe) obesity due to excess calories; Z79.84 Long term (current) use of oral hypoglycemic drugs; Z79.899 Other long term (current) drug therapy
CPT/HCPCS: 36415; 71045; 80048; 80053; 81001; 82803; 82962; 83036; 83605; 83735; 84484; 85025; 85027; 85379; 85610; 87040; 93005; 93010; 94640; 99285; J0360; J0456; J0696; J1100; J1650; J1815; J3490; J7030; J7060; J7512